=== PATIENT | female | born 2000 | race Caucasian/White ===

== ENCOUNTER → 2019-09-15 12:20 | Outpatient (CLI) | payer MEDICAID, SELFPAY ==
[2019-09-13 14:34] VITALS: BMI 27.3
[2019-09-15 14:07] LABS: hCG Titer Quant., Serum 2631 mIU/mL (1-3)
== END ==
PROVIDERS: PCP Family Medicine; Referring Provider Obstetrics & Gynecology; Visit Provider Obstetrics & Gynecology
DX: N91.2 Amenorrhea, unspecified (principal)
CPT/HCPCS: 36415; 84702; 86850; 86900; 86901

== ENCOUNTER → 2019-09-17 07:45 | Outpatient (CLI) | payer MEDICAID, SELFPAY ==
[2019-09-15 15:08] VITALS: BMI 27.3
--- NOTE | 2019-09-17 07:55 | US_ITS ---
STUDY: FIRST TRIMESTER OBSTETRICAL ULTRASOUND REASON FOR EXAM: Female, 19 years old heavy bleeding possible miscarriage LMP: July 09, 2019. TECHNIQUE: Transabdominal TECHNICAL QUALITY: Adequate. PRIOR ULTRASOUND: None. FINDINGS: There is visualization of a single gestational sac in a normal intrauterine position. The mean sac diameter (MSD) measures 1.0 cm, indicating an estimated gestational age (EGA) of 5 weeks, 4 days. The gestational sac shape is elongated. There is no demonstrated yolk sac. The placenta is non-visualized. There is visualization of an embryo with no cardiac activity, consistent with intrauterine demise. The crown-rump length (CRL) measures 5.4 mm, indicating an estimated gestational age (EGA) of 6 weeks, 3 days. The estimated gestation age (EGA) by LMP is 10 weeks, 0 days. The estimated date of delivery (GISELE) by LMP is April 14, 2020. The estimated gestation age (EGA) by US is 6 weeks, 0 days. The estimated date of delivery (GISELE) by US is May 12, 2020. The uterus measures 9.2 cm x 5.5 cm by 5.5 cm. There is no demonstrated uterine fibroid. The cervix is closed. The right ovary measures 2.7 cm x 1.4 cm x 2.1 cm. There is no right ovarian cyst. There is no visualized right adnexal mass or complex lesion. The left ovary is nonvisualized. There is no fluid in the cul de sac. US/Init OB < 14Wks US IMPRESSION: Nonviable embryo with a gestational age of 6 weeks and 3 days. Electronically Signed: Norbert Hu, at 13:05 EDT , Service support ,
== END ==
PROVIDERS: PCP Family Medicine; Referring Provider Obstetrics & Gynecology; Visit Provider Obstetrics & Gynecology
DX: O03.4 Incomplete spontaneous abortion without complication (principal); Z3A.00 Weeks of gestation of pregnancy not specified
CPT/HCPCS: 76801

== ENCOUNTER → 2019-11-04 13:28 | Outpatient (CLI) | payer MEDICAID, SELFPAY ==
[2019-09-24 11:24] VITALS: BMI 27.3
[2019-11-08 20:07] LABS: Dilute Prothrombin Time (dPT) 38.4 sec (0.0-55.0); Dilute Russell Viper Venom 38.7 sec (0.0-47.0); PTT-LA 45.6 sec (0.0-51.9); Thrombin Time 19.3 sec (0.0-23.0); dPT Confirm Ratio 1.03 Ratio (0.00-1.40)
[2019-11-08 21:13] LABS: Anti-Cardiolipin Ab, IgA, Qn < 9 APL U/mL (0-11); Anti-Cardiolipin Ab, IgG, Qn < 9 GPL U/mL (0-14); Anti-Cardiolipin Ab, IgM, Qn < 9 MPL U/mL (0-12); Beta-2-Glycoprotein I IgA <9 (0-25); Beta-2-Glycoprotein I IgG <9 (0-20); Beta-2-Glycoprotein I IgM <9 (0-32); Interpretation Comment: (.)
== END ==
PROVIDERS: PCP Family Medicine; Referring Provider Obstetrics & Gynecology; Visit Provider Obstetrics & Gynecology
DX: N96 Recurrent pregnancy loss (principal)
CPT/HCPCS: 36415; 86146; 86147

== ENCOUNTER → 2020-02-15 16:16 | Outpatient (CLI) | payer MEDICAID, SELFPAY ==
[2020-02-15 13:44] VITALS: BMI 30.2
[2020-02-15 17:02] LABS: Amphetamine Urine VISTA NEGATIVE (<1000 ng/mL); Barbiturate Urine VISTA NEGATIVE (< 200 ng/mL); Benzodiazepine Urine VISTA NEGATIVE (< 200 ng/mL); Cocaine Urine VISTA NEGATIVE (< 300 ng/mL); Ecstacy Urine VISTA NEGATIVE (< 500 ng/mL); Methadone Urine VISTA NEGATIVE (< 300 ng/mL); PCP Urine VISTA NEGATIVE (< 25 ng/mL); THC Urine VISTA POSITIVE (< 50 ng/mL); Vista UDS pH Range 5
[2020-02-18 20:08] LABS: Chlamydia By Nucleic Acid AMP Negative (Negative)
[2020-02-18 22:07] LABS: Gonococcus By Nucleic Acid AMP Negative (Negative)
[2020-02-24 21:41] LABS: HPV APTIMA, High Risk Negative (Negative); HPV Reflexed? YES, CHARGE PATIENT
== END ==
PROVIDERS: PCP Family Medicine; Visit Provider Obstetrics & Gynecology
DX: O09.90 Supervision of high risk pregnancy, unspecified, unspecified trimester (principal); Z12.4 Encounter for screening for malignant neoplasm of cervix; Z3A.00 Weeks of gestation of pregnancy not specified
CPT/HCPCS: 80307; 87086; 87088; 87491; 87591; 87624; 88175; G0145

== ENCOUNTER → 2020-03-21 13:30 | Outpatient (CLI) | payer MEDICAID, SELFPAY ==
[2020-03-09 08:20] VITALS: BMI 30.2
[2020-03-21 14:00] LABS: Absolute Neutrophil Count 5.5 X10^3/uL (2.0-7.7); Basophil# 0.02 X10^3/uL; Basophil% 0.2 % (0-1); Eosinophil# 0.07 X10^3/uL; Eosinophils% 0.9 % (0-5); Hematocrit 37.3 % (37-47); Hemoglobin 13.5 g/dL (12.0-15.0); Lymphocyte % 25.5 % (19-41); Mean Corp Hgb Conc 36.2 g/dL (32-36); Mean Corpuscular Hgb 29.5 pg (27.0-32.0); Mean Corpuscular Volume 81.6 fL (81-99); Mean Platelet Vol. 9.9 fl (6.2-12.0); Monocyte# 0.52 X10^3/uL; Monocyte% 6.3 % (0-10); NRBC Flagged by Analyzer 0 % (0-5); Neutrophil # 5.49 X10^3/uL (2.7-7.7); Neutrophil % 66.7 % (47-70); Platelet Count 244 K/mm3 (150-450); RBC Distribution Width SD 35.5 fl (35.1-43.9); Red Blood Count 4.57 M/mm3 (4.2-5.4); White Blood Count 8.2 K/mm3 (4.4-11.0)
[2020-03-21 14:56] LABS: NATERA MAILED SPECIMEN
[2020-03-21 15:37] LABS: HIV - WCH Non-Reactive (Nonreactive); Hepatitis B Surface Antigen Non-Reactive (Nonreactive); Hepatitis C Antibody Non-Reactive (Nonreactive)
[2020-03-23 02:39] LABS: Rapid Plasmin Reagin (RPR) NONREACTIVE (NONREACTIVE)
== END ==
PROVIDERS: PCP Family Medicine; Referring Provider Obstetrics & Gynecology; Visit Provider Obstetrics & Gynecology
DX: O09.90 Supervision of high risk pregnancy, unspecified, unspecified trimester (principal); Z31.430 Encounter of female for testing for genetic disease carrier status for procreative management; Z3A.00 Weeks of gestation of pregnancy not specified
CPT/HCPCS: 36415; 85025; 86592; 86703; 86803; 86850; 86900; 86901; 87340

== ENCOUNTER → 2020-05-08 | Outpatient (CLI) | payer MEDICAID, SELFPAY ==
[2020-05-08 15:29] VITALS: BMI 32.4
[2020-05-08 17:05] LABS: Amphetamine Urine VISTA NEGATIVE (<1000 ng/mL); Barbiturate Urine VISTA NEGATIVE (< 200 ng/mL); Benzodiazepine Urine VISTA NEGATIVE (< 200 ng/mL); Cocaine Urine VISTA NEGATIVE (< 300 ng/mL); Ecstacy Urine VISTA NEGATIVE (< 500 ng/mL); Methadone Urine VISTA NEGATIVE (< 300 ng/mL); PCP Urine VISTA NEGATIVE (< 25 ng/mL); THC Urine VISTA POSITIVE (< 50 ng/mL); Vista UDS pH Range 6
== END | disposition home or self-care (01) ==
LOC: LABSPEC 16:03
PROVIDERS: PCP Family Medicine; Referring Provider Nurse Practitioner Women's Health; Visit Provider Nurse Practitioner Women's Health
DX: F12.90 Cannabis use, unspecified, uncomplicated (principal)
CPT/HCPCS: 80307

== ENCOUNTER 2020-06-19 13:25 | Outpatient (CLI) | payer MEDICAID, SELFPAY ==
[2020-05-26 14:25] VITALS: BMI 32.8
[2020-06-19 13:42] VITALS: BP 140/73; PULSE 92; RESP 16; TEMP 35.9; O2SAT 100; BMI 34.3
[2020-06-19] MEDS: 0.9% NaCl Peripheral Flush Adult/Peds IV (13:58)
[2020-06-19] MEDS: Dextrose 5%-Lactated Ringers 1,000 ML 999 ML IV (13:59)
[2020-06-19] MEDS: Ondansetron 4 MG/2 ML Vial IV (14:03)
[2020-06-19 15:12] VITALS: BP 127/65; PULSE 72; RESP 16; O2SAT 100
== END 2020-06-19 16:00 | disposition home or self-care (01) ==
LOC: MEDOUTP 13:26
PROVIDERS: PCP Family Medicine; Referring Provider Obstetrics & Gynecology; Visit Provider Obstetrics & Gynecology
DX: E86.0 Dehydration (principal)
CPT/HCPCS: 96361; 96374; A4216; J2405

== ENCOUNTER → 2020-07-26 13:36 | Outpatient (CLI) | payer MEDICAID, SELFPAY ==
[2020-07-07 13:26] VITALS: BMI 33.3
[2020-07-26 14:04] LABS: Absolute Lymphocyte Count 1.91 X10^3/uL (0.83-4.51); Absolute Neutrophil Count 8.6 X10^3/uL (2.0-7.7); Basophil# 0.04 X10^3/uL; Basophil% 0.3 % (0-1); Eosinophil# 0.37 X10^3/uL; Hematocrit 34.3 % (37-47); Hemoglobin 11.4 g/dL (12.0-15.0); Lymphocyte # 1.91 X10^3/ul (0.83-4.51); Lymphocyte % 15.7 % (19-41); Mean Corp Hgb Conc 33.2 g/dL (32-36); Mean Corpuscular Hgb 27.7 pg (27.0-32.0); Mean Corpuscular Volume 83.3 fL (81-99); Mean Platelet Vol. 9.1 fl (6.2-12.0); Monocyte# 1.12 X10^3/uL; Monocyte% 9.2 % (0-10); NRBC Flagged by Analyzer 0 % (0-5); Neutrophil # 8.55 X10^3/uL (2.7-7.7); Neutrophil % 70.5 % (47-70); Platelet Count 234 K/mm3 (150-450); RBC Distribution Width CV 12.4 % (11.6-14.6); RBC Distribution Width SD 37.6 fl (35.1-43.9); Red Blood Count 4.12 M/mm3 (4.2-5.4); White Blood Count 12.2 K/mm3 (4.4-11.0)
[2020-07-26 14:16] LABS: Glucose Challenge Gest 1H 50g 99 mg/dL (70-140)
== END ==
PROVIDERS: PCP Family Medicine; Referring Provider Obstetrics & Gynecology; Visit Provider Obstetrics & Gynecology
DX: O09.90 Supervision of high risk pregnancy, unspecified, unspecified trimester (principal); Z3A.00 Weeks of gestation of pregnancy not specified
CPT/HCPCS: 36415; 82950; 85025

== ENCOUNTER → 2020-08-23 | Outpatient (CLI) | payer MEDICAID, SELFPAY ==
[2020-08-23 13:57] VITALS: BMI 33.6
[2020-08-23 19:29] LABS: Chlamydia Trachomatis by PCR Negative (Negative); Neisserai gonorrhoeae by PCR Negative (Negative); Probe Check PASS; Sample Adequacy Control PASS; Specimen Processing Control PASS
== END | disposition home or self-care (01) ==
LOC: LABSPEC 16:30
PROVIDERS: PCP Family Medicine; Visit Provider Nurse Practitioner Women's Health
DX: F12.90 Cannabis use, unspecified, uncomplicated (principal)
CPT/HCPCS: 87491; 87591

== ENCOUNTER 2020-09-06 13:55 | Outpatient (CLI) | payer MEDICAID, SELFPAY ==
[2020-09-06] VITALS (8 sets, daily range): BP systolic 128–137; BP diastolic 59–75; PULSE 97–125; TEMP 36.9; O2SAT 99–100; BMI 34.9; BMI 34.8
[2020-09-06] MEDS: Metoclopramide 10 MG Tablet PO (15:29)
[2020-09-06 16:02] LABS: Hematocrit 30.5 % (37-47); Hemoglobin 9.9 g/dL (12.0-15.0); Mean Corp Hgb Conc 32.5 g/dL (32-36); Mean Corpuscular Hgb 25.7 pg (27.0-32.0); Mean Corpuscular Volume 79.2 fL (81-99); Mean Platelet Vol. 9.6 fl (6.2-12.0); Platelet Count 221 K/mm3 (150-450); RBC Distribution Width CV 12.6 % (11.6-14.6); RBC Distribution Width SD 35.8 fl (35.1-43.9); Red Blood Count 3.85 M/mm3 (4.2-5.4); White Blood Count 12.3 K/mm3 (4.4-11.0)
[2020-09-06 16:41] LABS: Protein, Urine (Random) < 6.0 mg/dL (<11.9)
[2020-09-06 16:42] LABS: AST(SGOT) 10 U/L (15-37); Alanine Aminotransfer ALT/SGPT 17 U/L (13-56); Creatinine, Serum 0.57 mg/dL (0.55-1.02); EST Glomerular Filtration Rate 140 mL/min (>60); Est Glom Filt Rate - Afr Amer 169 mL/min (>60); Estimated Creatinine Clearance 133.68 ml/min; Uric Acid 4.6 mg/dL (2.6-6.0)
--- NOTE | 2020-09-07 12:26 | OB.TRI.PN ---
Progress Notes Date of Service: 09/06/20 Progress Note: Patient presents for triage evaluation secondary to headache and elevated BP. LOVE resolved with reglan. BPs normal. PreE labs negative. FHT: Moderate variability reactive no decelerations category I tracing [place]: No Contractions Assessment and plan: Reactive NST, reassuring maternal and status patient discharged to home to follow-up next scheduled visit. See problem list details for additional plan information. Laboratory Studies: Laboratory Tests 09/06/20 09/06/20 09/06/20 Range/Units 15:21 15:21 15:21 WBC 12.3 H (4.4-11.0) K/mm3 RBC 3.85 L (4.2-5.4) M/mm3 Hgb 9.9 L (12.0-15.0) g/dL Hct 30.5 L (37-47) % MCV 79.2 L (81-99) fL MCH 25.7 L (27.0-32.0) pg MCHC 32.5 (32-36) g/dL RDW Std Deviation 35.8 (35.1-43.9) fl RDW Coeff of Drake 12.6 (11.6-14.6) % Plt Count 221 (150-450) K/mm3 MPV 9.6 (6.2-12.0) fl Creatinine 0.57 (0.55-1.02) mg/dL Estim Creat Clear Calc 133.68 ml/min Est GFR (MDRD) Af Amer 169 (>60) mL/min Est GFR (MDRD) Non-Af 140 (>60) mL/min Uric Acid 4.6 (2.6-6.0) mg/dL AST 10 L (15-37) U/L ALT 17 (13-56) U/L U Random Total Protein < 6.0 (<11.9) mg/dL Urine Creatinine 22.50 (NO RANGE EST.) mg/dL Protein/Creatinin Ratio TNP Procedures Urinary/Genital 52xxx-59xxx: 01576-41 non-stress test Interp
== END 2020-09-06 17:20 ==
LOC: WPOUT 15:00 → WP 15:04
PROVIDERS: PCP Family Medicine; Visit Provider Obstetrics & Gynecology
DX: O26.899 Other specified pregnancy related conditions, unspecified trimester (principal); R51.9 Headache, unspecified; R03.0 Elevated blood-pressure reading, without diagnosis of hypertension; Z3A.00 Weeks of gestation of pregnancy not specified
CPT/HCPCS: 36415; 59025; 59050; 82565; 82570; 84156; 84450; 84460; 84550; 85027; 99218; G0378

== ENCOUNTER → 2020-09-25 | Outpatient (CLI) | payer MEDICAID, SELFPAY ==
[2020-09-25 15:45] VITALS: BMI 34.8
== END | disposition home or self-care (01) ==
LOC: LABSPEC 17:15
PROVIDERS: PCP Family Medicine; Visit Provider Obstetrics & Gynecology
DX: Z34.93 Encounter for supervision of normal pregnancy, unspecified, third trimester (principal); Z3A.35 35 weeks gestation of pregnancy
CPT/HCPCS: 87081

== ENCOUNTER 2020-09-29 00:30 | Outpatient (CLI) | payer MEDICAID, SELFPAY ==
[2020-09-25 15:45] VITALS: BMI 34.8
[2020-09-29 00:43] VITALS: BP 135/70; PULSE 97; TEMP 36.7; O2SAT 99
[2020-09-29 00:44] VITALS: PULSE 106; TEMP 37.1; O2SAT 98
[2020-09-29 00:54] VITALS: BMI 36.0
[2020-09-29 01:00] VITALS: BP 137/79; PULSE 76
[2020-09-29 01:16] VITALS: BP 137/74; PULSE 70
[2020-09-29 01:31] VITALS: BP 137/80; PULSE 72
[2020-09-29 01:32] LABS: ROM Internal Control Test YES-OK TO RESULT pt. (Internal QC); ROM Patient Test Negative (Negative)
[2020-09-29 01:46] VITALS: BP 138/79; PULSE 71
--- NOTE | 2020-09-29 16:43 | OB.TRI.PN ---
Progress Notes Date of Service: 09/28/20 Progress Note: Patient presents for triage evaluation secondary to decreased movement and LOF. Movement improved on arrival. ROM negative FHT: Moderate variability reactive no decelerations category I tracing [place]: Irregular Contractions Assessment and plan: Reactive NST, reassuring maternal and status patient discharged to home to follow-up at next scheduled visit. See problem list details for additional plan information. Laboratory Studies: Laboratory Tests 09/29/20 Range/Units 01:05 Vag Amniotic Fld Detect Negative (Negative) Charges/Coding Procedures Urinary/Genital 52xxx-59xxx: [id number] non-stress test Interp
== END 2020-09-29 02:00 | disposition home or self-care (01) ==
LOC: WPOUT 00:35 → WP 00:36
PROVIDERS: PCP Family Medicine; Referring Provider Obstetrics & Gynecology; Visit Provider Obstetrics & Gynecology
DX: O36.8190 Decreased fetal movements, unspecified trimester, not applicable or unspecified (principal); Z3A.00 Weeks of gestation of pregnancy not specified
CPT/HCPCS: 59025; 59050; 84112; 99218; G0378

== ENCOUNTER 2020-10-10 16:55 | Inpatient (IN) | payer MEDICAID, SELFPAY ==
[2020-10-10] VITALS (60 sets, daily range): BP systolic 97–143; BP diastolic 52–98; PULSE 72–113; RESP 18–20; TEMP 36.6–37.1; O2SAT 98–100; BMI 34.0; BMI 36.3
[2020-10-10 15:50] LABS: Protein, Urine (Random) 11.1 mg/dL (<11.9); Protein:Creat Ratio 90 mg/g CRE (0-200)
[2020-10-10 16:49] LABS: Hematocrit 31.6 % (37-47); Hemoglobin 10.2 g/dL (12.0-15.0); Mean Corp Hgb Conc 32.3 g/dL (32-36); Mean Corpuscular Hgb 24.3 pg (27.0-32.0); Mean Corpuscular Volume 75.2 fL (81-99); Platelet Count 240 K/mm3 (150-450); RBC Distribution Width CV 13.3 % (11.6-14.6); RBC Distribution Width SD 35.8 fl (35.1-43.9); White Blood Count 10.9 K/mm3 (4.4-11.0)
[2020-10-10 17:05] LABS: ALB/GLOB Ratio 0.7 RATIO (0.9-2.4); AST(SGOT) 11 U/L (15-37); Alanine Aminotransfer ALT/SGPT 13 U/L (13-56); Albumin, Serum 2.5 g/dL (3.2-5.0); Alkaline Phosphatase 185 U/L (45-117); Anion Gap 7 (5-15); BUN 8 mg/dL (7-18); BUN/Creat Ratio 14.8 RATIO (10-20); Calcium,Total 8.9 mg/dL (8.5-10.1); Chloride 106 mmol/L (98-107); Creatinine, Serum 0.54 mg/dL (0.55-1.02); EST Glomerular Filtration Rate 150 mL/min (>60); Est Glom Filt Rate - Afr Amer 182 mL/min (>60); Estimated Creatinine Clearance 141.11 ml/min; Globulin 3.8 g/dL (2.2-4.2); Glucose 88 mg/dL (74-106); Potassium 4.1 mmol/L (3.5-5.1); Protein, Total 6.3 g/dL (6.4-8.2); Sodium Level 135 mmol/L (136-145)
[2020-10-10] MEDS: Lactated Ringers 1,000 ML 999 ML IV (17:15)
[2020-10-10] MEDS: Magnesium Sulfate 4gm/100mL 4 GM/100 ML IV.SOLN. IV (17:15)
[2020-10-10] MEDS: Acetaminophen 500 MG Tablet 1000 MG PO ×2 (17:22→22:46)
[2020-10-10] MEDS: Sodium Citrate/Citric Acid 30 ML UDC PO (17:22)
--- NOTE | 2020-10-10 17:26 | HP.PCM.OB_ITS ---
HPI - General General Date of Admission: 10/10/20 HPI Narrative LYUBOV NOEL, is a 20 F who presents with 3+ pitting edema, elevated blood pressures, and persistent headache and change in vision. Patient has a history of preeclampsia with her first delivery. Maternal Data Information GISELE Calculator Estimated Delivery Date Method Current WG Current Estimate 10/17/20 LMP (Certain) 39w 0d PFSH PFSH Medical History (Updated 10/10/20 @ 17:[address] Afia Rosario MD) Anxiety with depression BPD (bronchopulmonary dysplasia) follow-up encounter PTSD (post-traumatic stress disorder) Home Medications diphenhydramine HCl [Benadryl] 50 mg PO PRN PRN 09/29/20 [History Last Taken Unknown] metoclopramide HCl [Reglan] 10 mg PO Q6H PRN 09/29/20 [History Last Taken Unknown] sertraline 50 mg PO QDAY 09/29/20 [History Last Taken 10/09/20 22:00] PNV [id number] [ Gummies] 2 tab PO QHS 10/10/20 [History Last Taken 10/09/20 22:00] acetaminophen [Tylenol Extra Strength] 1,000 mg PO Q6H PRN 10/10/20 [History Last Taken 10/10/20 11:00] Allergy/AdvReac Type Severity Reaction Status Date / Time meperidine [From Demerol] Allergy Mild other Verified 10/10/20 16:52 Family History Grandmother Diabetes Father Hypertension A-fib Mother Hypertension Surgical History History of cholecystectomy History of placement of ear tubes Hx of appendectomy Status post tonsillectomy and adenoidectomy Social History Smoking Status: Current every day smoker alcohol intake: never substance use type: marijuana caffeine: No what type of physical activity do you participate in: walking seatbelt use: always do you feel safe at home: Yes additional social history: [employer] Patient is unemployed History 5 Elective abortions Hx Para 1 Spontaneous abortions 3 Hx # Term Pregnancies Ectopic pregnancies Hx # Pregnancies Multiple births # of living children 1 Past Pregnancies Del. Date Name GA/Weeks Outcome Route Bth Weight Gen Labor Lgth Anesthesia Del Locatn Provider FOB Unknown 2017 Kory 41 live - full term Male 12 spinal Pomerene Vacceriello Delivery Date: heart rate Alvaro Sniderie Visit Details Expected Delivery Route/Plan RLTCS w/ SM 10/12 at 1200 Plans flu vaccine: no tdap vaccine: 07/26 rhogam: na LARC form signed: yes Problem list reviewed and updated with the most current plan of care details and appropriate orders placed. Relevant counseling for the gestational age provided. Continue routine care and follow up unless otherwise noted in visit notes/problem list details OB Flowsheet Initial Weight: Not Recorded Date -?-?-?-?-?-?-?-?-?-?-?-?- EGA Weight BP Urine Prot -?-?-?-?-?-?-?-?-?-?-?-?- Glucose FHR FuHt Pres Dilation -?-?-?-?-?-?-?-?-?-?-?-?- Effaced St Visit Note 02/15/20 -?-?-?-?-?-?-?-?-?-?-?-?- 5w 0d 171 lb 116/70 -?-?-?-?-?-?-?-?-?-?-?-?- -?-?-?-?-?-?-?-?-?-?-?-?- SM- GS 6 mm intr auterine 03/09/20 -?-?-?-?-?-?-?-?-?--?-?-?- 8w 2d 171 lb 122/84 Negative -?-?-?-?-?-?-?-?-?-?-?-?- Negative 160 -?-?-?-?-?-?-?-?-?-?-?-?- SM- crl 8w1d via ble IUP consistent with LMP 04/10/20 -?-?-?-?-?-?-?-?-?-?-?-?- 12w 6d 177 lb 6 oz 140/80 Nega tive -?-?-?-?-?-?-?-?-?-?-?-?- Negative 160 -?-?-?-?-?-?-?-?-?-?-?-?- GP - no cramping or bleeding. PRR. Discussed +carrier screening - getting screening today. Anatomy scan ordered. 05/08/20 -?-?-?-?-?-?-?-?-?-?-?-?- 16w 6d 183 lb 2 oz 136/82 Nega tive -?-?-?-?-?-?-?-?-?-?-?-?- Negative 157 -?-?-?-?-?-?-?-?-?-?-?-?- MH-No VB, LOF. A natomy US scheduled. FOB having rest of genetic screen done today 05/26/20 -?-?-?-?-?-?-?-?-?-?-?-?- 19w 3d 185 lb 4 oz 130/82 Nega tive -?-?-?-?-?-?-?-?-?-?-?-?- Negative 150 -?-?-?-?-?-?-?-?-?-?-?-?- GP - reports LOVE associated with blurred vision in both eyes. Starts with TV static in her left eye. Headaches typically resolve with tylenol. Hx migraines outside of pregnacy, but has never had visual disturbances. Has nausea with headaches. Occur 3-4x/wk. GP - reports LOVE associated w ith blurred vision in both eyes. Starts with TV static in her left eye. Headaches typically resolve with tylenol. Hx migraines outside of pregnacy, but has never had visual disturbances. Has nausea with headaches. Occur 3-4x/wk. Denies cramping, LOF, VB. Anatomy normal, but needs follow-up views. GP - reports LOVE associated w ith blurred vision in both eyes. Starts with TV static in her left eye. Headaches typically resolve with tylenol. Hx migraines outside of pregnacy, but has never had visual disturbances. Has nausea with headaches. Occur 3-4x/wk. No LOVE currently. Denies cramping, LOF, VB. Anatomy normal, but needs follow-up views. 07/07/20 -?-?-?-?-?-?-?-?-?-?-?-?- 25w 3d 194 lb 2 oz 130/78 Nega tive -?-?-?-?-?-?-?-?-?-?-?-?- Negative 155 25 -?-?-?-?-?-?-?-?-?-?-?-?- GP - no ctx, LOF , VB, DFM. Anatomy nl. Son's birthday is this Friday. 07/26/20 -?-?-?-?-?-?-?-?-?-?-?-?- 28w 1d 196 lb 136/80 Negative -?-?-?-?-?-?-?-?-?-?-?-?- Negative 155 28 -?-?-?-?-?-?-?-?-?-?-?-?- GP - no ctx, LOF , VB, DFM. TDAP today. GP - no ctx, LOF, VB, DFM. T DAP today. 28w labs normal. Plan RLTCS at 38w with SM. GP - no ctx, LOF, VB, DFM. T DAP today. 28w labs normal. Plan RLTCS at 39w with SM. 08/10/20 -?-?-?-?-?-?-?-?-?-?-?-?- 30w 2d 194 lb 4 oz 138/88 Nega tive -?-?-?-?-?--?-?-?-?-?-?-?- Negative 145 30 -?-?-?-?-?-?-?-?-?-?-?-?- GP - no LOF, VB, DFM, ctx. Denies complaints. 08/23/20 -?-?-?-?-?-?-?-?-?-?-?-?- 32w 1d 197 lb 130/62 Trace -?-?-?-?-?-?-?-?-?-?-?-?- Negative 142 32 -?-?-?-?-?-?-?-?-?-?-?-?- MH-No VB, LOF. I rreg BH-PTL reviewed. 09/06/20 -?-?-?-?-?-?-?-?-?-?-?-?- 34w 1d 203 lb 6 oz 140/80 Nega tive -?-?-?-?-?-?-?-?-?-?-?-?- Negative 140 34 Cephalic -?-?-?-?-?-?-?-?-?-?-?-?- GP - no LOF, VB, DFM, ctx. Reports LOVE with blurred vision over last 2 weeks. LOVE 07/15 after tylenol today. Sent to triage for eval. 09/18/20 -?-?-?-?-?-?-?-?-?-?-?-?- 35w 6d 204 lb 130/76 Negative -?-?-?-?-?-?-?-?-?-?-?-?- Negative 140 36 Cephalic -?-?-?-?-?-?-?-?-?-?-?-?- SM- no vb lof go od fm no regular ctx 09/25/20 -?-?-?-?-?-?-?-?-?-?-?-?- 36w 6d 206 lb 132/88 -?-?-?-?-?-?-?-?-?-?-?-?- 140 37 Cephalic 0 -?-?-?-?-?-?-?-?-?-?-?-?- SM- no vb lof go od fm nor egular ctx gbs 10/02/20 -?-?-?-?-?-?-?-?-?-?-?-?- 37w 6d 208 lb 138/84 Negative -?-?-?-?-?-?-?-?-?-?-?-?- Negative 160 38 Cephalic 0 -?-?-?-?-?-?-?-?-?-?-?-?- SM- no vb lof go od fm no regular ctx 10/10/20 -?-?-?-?-?-?-?-?-?-?-?-?- 39w 0d 211 lb 160/110 Trace -?-?-?-?--?-?-?-?-?-?-?-?- Negative -?-?-?-?-?-?-?-?-?-?-?-?- sent to l and d for evaluation due to severe range bp 10/10/20 -?-?-?-?-?-?-?-?-?-?-?-?- 39w 0d 211 lb 10.3 oz 139/8 9 143/98 143/92 142/95 135/90 143/87 121/80 139/81 -?-?-?-?-?-?-?-?-?-?-?-?- -?-?-?-?-?-?-?-?-?-?-?-?- NST FHR Rate Baby A Baseline: 130 Variability:: Moderate Accelerations:: 15 x 15 Decelerations:: None NST Reactive:: Yes FHR Category:: Category I Uterine Activity:: irregular ROS Constitutional Constitutional: Reports systems reviewed and no addt'l complaints, except as documented Eyes Eyes: Reports change in vision ENT HEENT: Reports systems reviewed and no addt'l complaints, except as documented and headache(s) Cardiovascular Cardiovascular: Reports systems reviewed and no addt'l complaints, except as documented; Denies chest pain or dyspnea Respiratory/Chest Respiratory/Chest: Reports systems reviewed and no addt'l complaints, except as documented Gastrointestinal Gastrointestinal: Reports systems reviewed and no addt'l complaints, except as documented; Denies abdominal pain Genitourinary Genitourinary: Reports systems reviewed and no addt'l complaints, except as documented, contractions Details: present (irregular) and movement Details: present; Denies dysuria or genital lesions Musculoskeletal Musculoskeletal: Reports systems reviewed and no addt'l complaints, except as documented Neurologic Neurologic: Reports systems reviewed and no addt'l complaints, except as documented Endocrine Endocrinology: Reports systems reviewed and no addt'l complaints, except as documented Vital Signs Vital Signs Vital Signs: 10/10/20 16:02 10/10/20 16:07 10/10/20 16:12 Pulse Rate 113 H 99 101 H Blood Pressure 139/89 H BP Systolic 139 BP Diastolic 89 Pulse Ox 98 99 10/10/20 16:19 10/10/20 16:35 10/10/20 16:49 Pulse Rate 111 H 107 H 104 H Blood Pressure 143/92 H 142/95 H 135/90 H BP Systolic 143 142 135 BP Diastolic 92 95 90 Pulse Ox 10/10/20 17:03 10/10/20 17:18 10/10/20 17:22 Pulse Rate 107 H 93 94 Blood Pressure 143/87 H 121/80 H 139/81 H BP Systolic 143 121 139 BP Diastolic 87 80 81 Pulse Ox 98 Weight Weight: 211 lb 10.3 oz Body Mass Index (BMI) 36.3 Physical Exam Const alert, oriented x3, no apparent distress and healthy appearing HEENT normocephalic and moist oral mucous membranes Head and Scalp: atraumatic Neck full ROM, no lymphadenopathy, supple and thyroid normal General: trachea midline Lymph Lymphatic: no lymphadenopathy noted Chest inspection of chest normal Resp normal respiratory effort Cardio regular rate GI normal to inspection, nondistended, normoactive bowel sounds, soft to palpation and non-tender Inspection: gravid external exam normal Manual OB Exam: estimated gestational size appropriate and presentation Extremity normal to inspection General Extremity: Negative for edema Skin no rashes or lesions noted Neuro no focal motor deficits and deep tendon reflexes 2+ bilaterally Motor Exam: strength 5/5 throughout and clonus absent Psych mental status grossly normal Labs Labs Labs: Blood Type A POSITIVE Antibody Screen NEGATIVE Hct 31.6 % (37-47) L Hgb 10.2 g/dL (12.0-15.0) L Obstetrics US Hep Bs Antigen Non-Reactive (Nonreactive) Neisseria gonorrhoeae DNA (YANET) Negative (Negative) HIV 1&2 Antibody Non-Reactive (Nonreactive) C.trachomatis DNA (PCR) Negative (Negative) Glucose 1 Hr 50 gm 99 mg/dL (70-140) Assessment & Plan (1) : QUALIFIERS: Weeks of gestation: 39 weeks Qualified Code(s): Z3A.39 - 39 weeks gestation of COMMENT: NIPT low risk, carrier polycystic kidney disease, FOB 03/18 neg. nl anatomy. GBS neg (2) Supervision of high-risk : QUALIFIERS: Trimester: third trimester Qualified Code(s): O09.93 - Supervision of high risk , unspecified, third trimester COMMENT: PRR GISELE 10/17/20girkelsea VIEYRA Kory Santiago (3) History of recurrent miscarriages: COMMENT: APL testing negative. (4) Anxiety and depression: COMMENT: encouraged counseling. Best friend week of 07/26. Coping as well as she can. 08/23 stable (5) History of delivery: COMMENT: Desires repeat LTCS with SM at 39w. Scheduled RLTCS for 10/12 @ 12. Would consider if spontaneous labor before then. RCS with SM 10/12 at noon (6) Marijuana use: COMMENT: + 02/16/20 Random tox screen; Positive 05/08/20 (7) ASCUS of cervix with negative high risk HPV: COMMENT: needs repeat PAP 02/2023 (8) Migraine with aura: QUALIFIERS: Status migrainosus presence: without status migrain osus Intractability: not intractable Qualified Code(s): G43.109 - Migraine with aura, not intractable, without status migrainosus COMMENT: Hx migraines, but no auras prior to . Visual symptoms consistent with auras. BP normal and patient previable. Given reglan. Recommend daily magnesium. Patient to scheduled follow-up with PCP. (9) Preeclampsia, severe: COMMENT: headache and blurry vision, elevated bps, proceed with RLTCS and magnesium sulfate
--- NOTE | 2020-10-10 17:29 | EX.PCM.OBRPT ---
Assessment & Plan (1) : QUALIFIERS: Weeks of gestation: 39 weeks Qualified Code(s): Z3A.39 - 39 weeks gestation of COMMENT: NIPT low risk, carrier polycystic kidney disease, FOB 03/18 neg. nl anatomy. GBS neg (2) Supervision of high-risk : QUALIFIERS: Trimester: third trimester Qualified Code(s): O09.93 - Supervision of high risk , unspecified, third trimester COMMENT: PRR GISELE 10/17/20girkelsea VIEYRA Kory Santiago (3) History of recurrent miscarriages: COMMENT: APL testing negative. (4) Anxiety and depression: COMMENT: encouraged counseling. Best friend week of 07/26. Coping as well as she can. 08/23 stable (5) History of delivery: COMMENT: Desires repeat LTCS with SM at 39w. Scheduled RLTCS for 10/12 @ 12. Would consider if spontaneous labor before then. RCS with SM 10/12 at noon (6) Marijuana use: COMMENT: + 02/16/20 Random tox screen; Positive 05/08/20 (7) ASCUS of cervix with negative high risk HPV: COMMENT: needs repeat PAP 02/2023 (8) Migraine with aura: QUALIFIERS: Intractability: not intractable Status migrainosus presence: without status migrainosus Qualified Code(s): G43.109 - Migraine with aura, not intractable, without status migrainosus COMMENT: Hx migraines, but no auras prior to . Visual symptoms consistent with auras. BP normal and patient previable. Given reglan. Recommend daily magnesium. Patient to scheduled follow-up with PCP. 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 Mo catheter was placed. The patient was placed in the dorsal supine position with leftward tilt. Patient was prepped and draped in the normal sterile fashion. Pfannenstiel skin incision was made with the scalpel and carried through to the underlying layer of fascia with the scalpel. Fascia was nicked in the midline and the incision extended laterally. The rectus bellies were dissected off superiorly and inferiorly with out complication both sharply and bluntly. The peritoneum was entered digitally. The incision was stretched and a significant amount of uterine to anterior to abdominal wall adhesions were encountered and taken down with the Bovie. A low transverse uterine incision was made with the scalpel. The infant's head was delivered atraumatically followed by the anterior and posterior shoulders without complication the rest of the delivered. The cord was clamped and cut and the infant was handed off to awaiting nurse. The placenta was delivered spontaneously immediately following and was noted to be intact and have a three-vessel cord. The uterus was exteriorized cleared of all clots and debris, and the incision was closed in a signle layer closure using #1 Monocryl. Some bleeding was noted on the serosa of the uterus after the adhesiolysis had been performed and therefore this was oversewn with 4-0 Monocryl and Atilio applied. The ovaries and fallopian tubes were noted to be within normal limits. The uterus was returned to the maternal abdomen and gutters were cleared of all clots and debris. The peritoneum was closed with 3-0 Monocryl in a running fashion. Gloves were changed prior to fascial closure. Fascia was closed with 0 PDS in a running fashion. Subcutaneous tissue was copiously irrigated and the skin was closed with 3-0 Monocryl in a subcuticular fashion. Mepilex dressing was applied without complication. Patient was taken to recovery in stable condition. It was discussed with the patient that based on the clinical information obtained during this encounter, combined with her history, at this time I would recommend cesareans for future deliveries if further pregnancies are desired. Amniotic Membrane Rupture Type: Artificial Amniotic Fluid Description: Clear Placenta Disposition: [facility] Cord Vessel Description: 3 Vessels Cord Entanglement: None Infant A Gender: Female Delayed Cord Clamping: Yes Complications Risks of Surgery Discussed w/Patient: Bleeding, Infection, Need for Future C-Sections and Injury to surrounding structure(s) including bowel and bladder Vaginal Delivery Complication Complications: None Admit VTE Documentation VTE Present on Admission: No VTE Mechan Device Prophylaxis: SCD's Procedures Urinary/Genital 52xxx-59xxx: [id number] delivery+PP Care([facility])
[2020-10-10] MEDS: Magnesium Sulfate 4gm/100mL 2 GM/50 ML IV.SOLN. IV (17:35)
[2020-10-10] MEDS: Cefazolin 2 GM in 0.9% Normal Saline 100 ML IV (17:48)
[2020-10-10] MEDS: Magnesium Sulfate 20 GM/500 ML BAG IV (17:50)
--- NOTE | 2020-10-10 18:02 | PCM.DC ---
Discharge Instructions Diet Discharge Diet: No restrictions Activity Discharge Activity: May Not Drive (for 2 weeks or while taking narcotic pain medications.), May Shower and May Take a Tub Bath (in 7 days) May shower in (days): 0 May resume sexual activity in: 4-6 weeks Weight Bearing Status: Full weight bearing Lifting Restrictions: 20 pounds Dressing / Incision Call your doctor if your incision/area has: Continuous Slow Oozing, Sudden Increased Bleeding, Increased Pain/ Swelling, Increased Redness and Foul Smelling Discharge Call your doctor if you observe: Fever of 101 or Higher and Using more than 1 pad per hour (for 2 hours) Suture Line Care: Avoid Pulling/Pushing and Avoid Pinching/Bending Cleanse incision/area with: Soap & Water and Keep Dressing Clean & Dry Follow Up Care Please Follow Up With: Afia Rosario MD When: Call [phone] to make an appointment for an incision check in 1-2 weeks. Test Results: Test results from this visit will be discussed in further detail at your follow-up appointment, if applicable. Discharge Plan Admission Admit Date/Time: 10/10/20 16:55 Primary Reason for Your Visit: delivery Attending Provider: Afia Rosario Primary Care Provider: Roderick Wallis Discharge Orders/Prescriptions Prescriptions: New oxycodone-acetaminophen [Endocet] 5-325 mg tablet 1 tab PO Q4H PRN (Reason: pain) 7 Days Qty: 20 RF: 0 naproxen [naproxen] 500 MG tablet 500 mg PO BID PRN PRN (Reason: Pain) Qty: 30 RF: 1 Continued diphenhydramine HCl [Benadryl] 25 mg Capsule 50 mg PO PRN PRN (Reason: Sleep) RF: 0 sertraline 50 mg tablet 50 mg PO QDAY RF: 0 metoclopramide HCl [Reglan] 10 mg tablet 10 mg PO Q6H PRN (Reason: headaches) RF: 0 acetaminophen [Tylenol Extra Strength] 500 mg Tablet 1,000 mg PO Q6H PRN (Reason: pain) RF: 0 Gummies 400 mcg-35 mg- 25 mg-5 mg Tablet,Chewable 2 tab PO QHS RF: 0 Referrals / Follow Up: Roderick Wallis MD [Primary Care Provider] - Afia Rosario MD [STAFF PHYSICIAN] - Disposition Disposition (needs filled in before D/C Order can be placed): Home, Self Care
[2020-10-10 18:18] LABS: BUP Internal Control LINE = VALID (VALID); Buprenorphine Drug Screen Negative (<10 ng/mL)
[2020-10-10] MEDS: Ondansetron 4 MG/2 ML Vial IV (18:25)
[2020-10-10] MEDS: Oxytocin 30 units/NS 500 ml 30 UNITS/500 ML IV.SOLN 167 UNITS IV (19:30)
[2020-10-10] MEDS: Ketorolac 30 MG/ML Syringe IV (20:09)
[2020-10-10 21:51] LABS: Amphetamine Urine VISTA NEGATIVE (<1000 ng/mL); Barbiturate Urine VISTA NEGATIVE (< 200 ng/mL); Benzodiazepine Urine VISTA NEGATIVE (< 200 ng/mL); Cocaine Urine VISTA NEGATIVE (< 300 ng/mL); Ecstacy Urine VISTA NEGATIVE (< 500 ng/mL); Methadone Urine VISTA NEGATIVE (< 300 ng/mL); PCP Urine VISTA NEGATIVE (< 25 ng/mL); THC Urine VISTA NEGATIVE (< 50 ng/mL); Vista UDS pH Range 6
[2020-10-10] MEDS: Lactated Ringers 1,000 ML 100 ML IV (22:45)
[2020-10-10] MEDS: Sertraline 50 MG Tablet PO (22:45)
[2020-10-10] MEDS: Prenatal Vits Tablet 1 TABLET PO (22:47)
[2020-10-11] VITALS (81 sets, daily range): BP systolic 110–147; BP diastolic 58–86; PULSE 65–108; RESP 16–18; TEMP 36.3–36.7; O2SAT 97–100
[2020-10-11] MEDS: Ketorolac 30 MG/ML Syringe IV ×3 (01:44→14:23)
[2020-10-11] MEDS: oxyCODONE 5 MG Tablet PO ×5 (02:40→23:26)
[2020-10-11] MEDS: Magnesium Sulfate 20 GM/500 ML BAG IV (03:03)
--- NOTE | 2020-10-11 04:32 | PCM.PN.OB ---
Subjective Subjective Patient doing well without complaints. Tolerating PO. Ambulating and voiding without difficulty. feeding well. Denies chest pain, shortness of breath, calf pain/swelling, fevers, chills, lightheadedness. Objective Data Objective Data Vital Signs: Vital Signs Temp Pulse Resp BP Pulse Ox 97.6 F L 95 18 129/67 H 100 10/11/20 04:00 10/11/20 04:27 10/11/20 04:00 10/11/20 04:00 10/11/20 04:27 Oxygen Delivery Method Room Air Weight: 211 lb 10.3 oz Body Mass Index (BMI) 36.3 Intake & Output: Intake and Output for Last 24 Hours 10/09/20 10/10/20 10/11/20 23:59 23:59 23:59 Intake Total 3090.83 / 3090.83 505 / 505 Output Total 1125 / 1125 350 / 350 Balance 1965.83 / 1965.83 155 / 155 Lab / Micro Data Result Diagrams: 10/10/20 16:30 10/10/20 16:30 Labs: Laboratory Results - last 24 hr 10/10/20 10/10/20 10/10/20 15:36 15:36 16:30 WBC 10.9 RBC 4.20 Hgb 10.2 L Hct 31.6 L MCV 75.2 L MCH 24.3 L MCHC 32.3 RDW Std Deviation 35.8 RDW Coeff of Drake 13.3 Plt Count 240 MPV 10.0 Sodium Potassium Chloride Carbon Dioxide Anion Gap BUN Creatinine Estim Creat Clear Calc Est GFR (MDRD) Af Amer Est GFR (MDRD) Non-Af BUN/Creatinine Ratio Glucose Calcium Total Bilirubin AST ALT Alkaline Phosphatase Total Protein Albumin Globulin Albumin/Globulin Ratio U Random Total Protein 11.1 Urine Creatinine 124.00 Protein/Creatinin Ratio 90 Urine Opiates Screen NEGATIVE Ur Buprenorphine Scrn Urine Methadone Screen NEGATIVE Ur Barbiturates Screen NEGATIVE Ur Phencyclidine Scrn NEGATIVE Ur Amphetamines Screen NEGATIVE U Methamphetamin-MDMA NEGATIVE U Benzodiazepines Scrn NEGATIVE Urine Cocaine Screen NEGATIVE U Cannabinoids Screen NEGATIVE Ur Drug Screen Comment Blood Type Antibody Screen 10/10/20 10/10/20 10/10/20 16:30 16:30 17:30 WBC RBC Hgb Hct MCV MCH MCHC RDW Std Deviation RDW Coeff of Drake Plt Count MPV Sodium 135 L Potassium 4.1 Chloride 106 Carbon Dioxide 22.0 Anion Gap 7 BUN 8 Creatinine 0.54 L Estim Creat Clear Calc 141.11 Est GFR (MDRD) Af Amer 182 Est GFR (MDRD) Non-Af 150 BUN/Creatinine Ratio 14.8 Glucose 88 Calcium 8.9 Total Bilirubin 0.30 AST 11 L ALT 13 Alkaline Phosphatase 185 H Total Protein 6.3 L Albumin 2.5 L Globulin 3.8 Albumin/Globulin Ratio 0.7 L U Random Total Protein Urine Creatinine Protein/Creatinin Ratio Urine Opiates Screen Ur Buprenorphine Scrn Negative Urine Methadone Screen Ur Barbiturates Screen Ur Phencyclidine Scrn Ur Amphetamines Screen U Methamphetamin-MDMA U Benzodiazepines Scrn Urine Cocaine Screen U Cannabinoids Screen Ur Drug Screen Comment Blood Type A POSITIVE Antibody Screen NEGATIVE Micro: Microbiology 10/10/20 18:38 Mucosa - Nose SARS-CoV-2 Antigen (Rapid) - Final ROS Constitutional Constitutional: Reports systems reviewed and no addt'l complaints, except as documented Cardiovascular Cardiovascular: Reports systems reviewed and no addt'l complaints, except as documented Respiratory/Chest Respiratory/Chest: Reports systems reviewed and no addt'l complaints, except as documented Gastrointestinal Gastrointestinal: Reports systems reviewed and no addt'l complaints, except as documented Physical Exam Const alert, oriented x3 and no apparent distress HEENT Head and Scalp: atraumatic Resp normal respiratory effort GI soft to palpation and non-tender Inspection: incision intact, healing well and drainage (none) Bimanual Exam - Vag & Uterus: uterus non-tender Uterus Palpation: uterus fundus firm (below Umbilicus) Assessment & Plan (1) delivery due to maternal disorder: COMMENT: RLTCS SM 39 severe preeclampsia Summer- girl (2) Preeclampsia, severe: COMMENT: headache and blurry vision, elevated bps, proceed with RLTCS and magnesium sulfate PLAN: s/p LTCS PPD # 1 1. routine post care 2. breast feeding- support given 3. rh positive 4. rubella immune preeclampsia- magnesium x 24 hours, repeat labs this am
[2020-10-11 05:10] LABS: Hematocrit 28.9 % (37-47); Hemoglobin 9.2 g/dL (12.0-15.0); Mean Corp Hgb Conc 31.8 g/dL (32-36); Mean Corpuscular Hgb 24.3 pg (27.0-32.0); Mean Corpuscular Volume 76.3 fL (81-99); Mean Platelet Vol. 10.1 fl (6.2-12.0); Platelet Count 208 K/mm3 (150-450); RBC Distribution Width CV 13.3 % (11.6-14.6); RBC Distribution Width SD 36.3 fl (35.1-43.9); Red Blood Count 3.79 M/mm3 (4.2-5.4); White Blood Count 13.5 K/mm3 (4.4-11.0)
[2020-10-11 05:35] LABS: ALB/GLOB Ratio 0.6 RATIO (0.9-2.4); AST(SGOT) 17 U/L (15-37); Alanine Aminotransfer ALT/SGPT 12 U/L (13-56); Alkaline Phosphatase 150 U/L (45-117); Anion Gap 7 (5-15); BUN 8 mg/dL (7-18); BUN/Creat Ratio 14.9 RATIO (10-20); Calcium,Total 7.5 mg/dL (8.5-10.1); Chloride 106 mmol/L (98-107); Creatinine, Serum 0.54 mg/dL (0.55-1.02); EST Glomerular Filtration Rate 151 mL/min (>60); Est Glom Filt Rate - Afr Amer 183 mL/min (>60); Estimated Creatinine Clearance 141.11 ml/min; Globulin 3.1 g/dL (2.2-4.2); Glucose 85 mg/dL (74-106); Potassium 3.7 mmol/L (3.5-5.1); Protein, Total 5.1 g/dL (6.4-8.2); Sodium Level 138 mmol/L (136-145)
[2020-10-11] MEDS: Acetaminophen 500 MG Tablet 1000 MG PO ×4 (06:15→22:47)
[2020-10-11] MEDS: Enoxaparin 40 MG/0.4 ML Syringe SC (06:15)
[2020-10-11] MEDS: 0.9% Saline Lock 10 ML Syringe IV ×2 (08:03→14:23)
[2020-10-11 08:24] LABS: Rubella IgG Reactive (Nonreactive)
[2020-10-11] MEDS: Senna/Docusate Sodium 1 Tablet PO (11:38)
[2020-10-11] MEDS: Naproxen 500 MG Tablet PO (20:13)
[2020-10-11] MEDS: Prenatal Vits Tablet 1 TABLET PO (22:47)
[2020-10-11] MEDS: Sertraline 50 MG Tablet PO (22:47)
[2020-10-12 02:13] VITALS: BP 119/77; PULSE 68; RESP 18; TEMP 36.1; O2SAT 97
[2020-10-12] MEDS: Naproxen 500 MG Tablet PO (03:36)
[2020-10-12] MEDS: oxyCODONE 5 MG Tablet PO ×3 (05:00→09:21)
[2020-10-12] MEDS: Acetaminophen 500 MG Tablet 1000 MG PO ×2 (05:38→10:56)
[2020-10-12 07:40] VITALS: BP 105/53; PULSE 60; RESP 16; TEMP 36.4
[2020-10-12] MEDS: Senna/Docusate Sodium 1 Tablet PO (09:15)
[2020-10-12] MEDS: Enoxaparin 40 MG/0.4 ML Syringe SC (09:15)
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
--- NOTE | 2020-10-12 11:35 | PCM.PN.OB ---
Subjective Subjective Patient doing well without complaints. Tolerating PO. Ambulating and voiding without difficulty. feeding well. Denies chest pain, shortness of breath, calf pain/swelling, fevers, chills, lightheadedness. Objective Data Objective Data Vital Signs: Vital Signs Temp Pulse Resp BP Pulse Ox 97.5 F L 60 16 105/53 L 97 10/12/20 07:40 10/12/20 07:40 10/12/20 07:40 10/12/20 07:40 10/12/20 02:13 Oxygen Delivery Method Room Air Weight: 211 lb 10.3 oz Body Mass Index (BMI) 36.3 Intake & Output: Intake and Output for Last 24 Hours 10/10/20 10/11/20 10/12/20 23:59 23:59 23:59 Intake Total 3090.83 / 3090.83 819.16 / 819.16 Output Total 1125 / 1125 1150 / 1150 Balance 1965.83 / 1965.83 -330.84 / -330.84 Lab / Micro Data Result Diagrams: 10/11/20 05:00 10/11/20 05:00 Micro: Microbiology 10/10/20 18:38 Mucosa - Nose SARS-CoV-2 Antigen (Rapid) - Final ROS Constitutional Constitutional: Reports systems reviewed and no addt'l complaints, except as documented Cardiovascular Cardiovascular: Reports systems reviewed and no addt'l complaints, except as documented Respiratory/Chest Respiratory/Chest: Reports systems reviewed and no addt'l complaints, except as documented Gastrointestinal Gastrointestinal: Reports systems reviewed and no addt'l complaints, except as documented Physical Exam Const alert, oriented x3 and no apparent distress HEENT Head and Scalp: atraumatic Resp normal respiratory effort GI soft to palpation and non-tender Inspection: incision intact, healing well and drainage (none) Bimanual Exam - Vag & Uterus: uterus non-tender Uterus Palpation: uterus fundus firm (below Umbilicus) Assessment & Plan (1) Preeclampsia, severe: COMMENT: headache and blurry vision, elevated bps, proceed with RLTCS and magnesium sulfate (2) delivery due to maternal disorder: COMMENT: RLTCS SM 39 severe preeclampsia Summer- girl PLAN: dc home today fu in 2 weeks
--- NOTE | 2020-10-12 15:00 | CASEMGMT ---
Social Work Labor and Delivery Called [facility] ([facility]) Daisy Giron at [phone], option 3, option 1. Referral given due to substance exposed infant in utero. Reported maternal drug screens, including last one in the second trimester. Negative for mom and baby both at delivery. Brief maternal and histories provided, including maternal history of mental health. At this time, referral likely to be screened out though will be documented. Will monitor for meconium drug screen results and if positive report to children services. No other services requested or indicated this time, other than watching for meconium results. -JEROME Hager, ATMOSPHERIC PHYSICIST
--- NOTE | 2020-10-18 17:02 | NURSING ---
Mother doing well on follow up call.
--- NOTE | 2020-10-18 17:05 | NURSING ---
Doing well on follow up phone call
== END 2020-10-12 11:30 | disposition home or self-care (01) | DRG 540 ==
LOC: WPOUT 16:59 → WP 16:59
PROVIDERS: Admitting Provider Obstetrics & Gynecology; PCP Family Medicine; Referring Provider Obstetrics & Gynecology; Visit Provider Obstetrics & Gynecology
DX: O34.211 Maternal care for low transverse scar from previous cesarean delivery (principal); N85.8 Other specified noninflammatory disorders of uterus; Z3A.39 39 weeks gestation of pregnancy; Z37.0 Single live birth; O99.344 Other mental disorders complicating childbirth; F41.8 Other specified anxiety disorders; F43.10 Post-traumatic stress disorder, unspecified; O14.14 Severe pre-eclampsia complicating childbirth; F17.200 Nicotine dependence, unspecified, uncomplicated; O99.334 Smoking (tobacco) complicating childbirth; G43.109 Migraine with aura, not intractable, without status migrainosus; Z79.899 Other long term (current) drug therapy; Z14.8 Genetic carrier of other disease
CPT/HCPCS: 59025; 59050; 80053; 80307; 82570; 84156; 85027; 86762; 86850; 86900; 86901; 87426; 99218; 99251; J7120; A4216; G0378; G0463; J2405

== ENCOUNTER → 2020-10-14 20:22 | Outpatient (CLI) | payer MEDICAID, SELFPAY ==
[2020-10-10 16:32] VITALS: BMI 36.3
== END ==
PROVIDERS: PCP Family Medicine; Referring Provider Obstetrics & Gynecology; Visit Provider Obstetrics & Gynecology
DX: E86.0 Dehydration (principal)

== ENCOUNTER → 2020-12-27 18:46 | Outpatient (CLI) | payer MEDICAID, SELFPAY | PROVIDERS: PCP Family Medicine; Referring Provider Obstetrics & Gynecology; Visit Provider Obstetrics & Gynecology | DX: Z39.1 Encounter for care and examination of lactating mother (principal) | CPT/HCPCS: 96158 ==

== ENCOUNTER → 2021-10-23 | Outpatient (CLI) | payer MEDICAID, SELFPAY ==
--- NOTE | 2021-10-23 14:18 | US_ITS ---
STUDY: FIRST TRIMESTER OBSTETRICAL ULTRASOUND REASON FOR EXAM: Female, 21 years old viability LMP: 08/07/2021. TECHNIQUE: Transvaginal TECHNICAL QUALITY: Adequate. PRIOR ULTRASOUND: None. FINDINGS: There is visualization of a single gestational sac in a normal intrauterine position. The mean sac diameter (MSD) measures 9.1 mm, indicating an estimated gestational age (EGA) of 5 weeks, 5 days. The gestational sac shape is within normal limits. There is a visualized yolk sac. The yolk sac measures 3.1 mm. The placenta is non-visualized. There is no demonstrated embryo ( pole). The estimated gestation age (EGA) by LMP is 7 weeks, 0 days. The estimated date of delivery (GISELE) by LMP is 06/11/2022. The estimated gestation age (EGA) by US is 5 weeks, 5 days. The estimated date of delivery (GISELE) by US is 06/20/2022. The uterus measures 10.2 cm x 7.4 cm x 5.3 cm. There is no demonstrated uterine fibroid. The cervix is closed. The right ovary measures 3.2 cm x 3 cm x 1.7 cm. There is no right ovarian cyst. There is no visualized right adnexal mass or complex lesion. The left ovary measures 2.6 cm x 1.7 cm x 1.5 cm. There is no left ovarian cyst. There is no visualized left adnexal mass or complex lesion. There is minimal fluid in the cul de sac. US/Transvaginal w/Preg US IMPRESSION: Intrauterine gestational sac corresponding to a gestational age of 5 weeks and 5 days. Electronically Signed: Norbert Hu MD at 15:24 EDT ,
== END | disposition home or self-care (01) ==
LOC: OPUS 14:16
PROVIDERS: PCP Family Medicine; Visit Provider Nurse Practitioner Women's Health
DX: O36.80X0 Pregnancy with inconclusive fetal viability, not applicable or unspecified (principal); Z3A.00 Weeks of gestation of pregnancy not specified
CPT/HCPCS: 76817

== ENCOUNTER → 2021-10-24 | Outpatient (CLI) | payer MEDICAID, SELFPAY ==
[2021-10-24 12:47] LABS: hCG Titer Quant., Serum 3264 mIU/mL (1-3)
== END | disposition home or self-care (01) ==
LOC: PAVLAB 11:35
PROVIDERS: PCP Family Medicine; Referring Provider Obstetrics & Gynecology; Visit Provider Obstetrics & Gynecology
DX: O20.0 Threatened abortion (principal); Z3A.00 Weeks of gestation of pregnancy not specified
CPT/HCPCS: 36415; 84702

== ENCOUNTER → 2021-10-26 | Outpatient (CLI) | payer MEDICAID, SELFPAY ==
[2021-10-26 14:46] LABS: hCG Titer Quant., Serum 5104 mIU/mL (1-3)
== END | disposition home or self-care (01) ==
LOC: LAB 12:24
PROVIDERS: PCP Family Medicine; Referring Provider Obstetrics & Gynecology; Visit Provider Obstetrics & Gynecology
DX: O20.0 Threatened abortion (principal); Z3A.00 Weeks of gestation of pregnancy not specified
CPT/HCPCS: 36415; 84702

== ENCOUNTER → 2021-10-29 | Outpatient (CLI) | payer MEDICAID, SELFPAY ==
[2021-10-29 17:05] LABS: hCG Titer Quant., Serum 9810 mIU/mL (1-3)
== END | disposition home or self-care (01) ==
LOC: PAVLAB 15:38
PROVIDERS: PCP Family Medicine; Referring Provider Nurse Practitioner Women's Health; Visit Provider Nurse Practitioner Women's Health
DX: O36.80X0 Pregnancy with inconclusive fetal viability, not applicable or unspecified (principal); Z3A.00 Weeks of gestation of pregnancy not specified
CPT/HCPCS: 36415; 84702

== ENCOUNTER → 2021-10-30 | Outpatient (CLI) | payer MEDICAID, SELFPAY ==
--- NOTE | 2021-10-30 13:21 | US_ITS ---
STUDY: FIRST TRIMESTER OBSTETRICAL ULTRASOUND REASON FOR EXAM: Female, 21 years old viability -- STAT read LMP: 09/04/2021. TECHNIQUE: Transabdominal and Transvaginal TECHNICAL QUALITY: Adequate. PRIOR ULTRASOUND: Comparison is made with prior study 10/23/2021. FINDINGS: There is visualization of a single gestational sac in a normal intrauterine position. The mean sac diameter (MSD) measures 1.52 cm, indicating an estimated gestational age (EGA) of 6 weeks, 2 days. The gestational sac shape is within normal limits. There is a visualized yolk sac. The yolk sac measures 3.9 mm. The placenta is non-visualized. There is visualization of a live embryo. The crown-rump length (CRL) measures 4.3 mm, indicating an estimated gestational age (EGA) of 6 weeks, 2 days. There is demonstrated cardiac activity with a heart rate of 132 bpm. The estimated gestation age (EGA) by LMP is 8 weeks, 0 days. The estimated date of delivery (GISELE) by LMP is 06/11/2022. The estimated gestation age (EGA) by US is 6 weeks, 2 days. The estimated date of delivery (GISELE) by US is 06/23/2022. The uterus measures 9.4 cm x 6.6 cm x 5.7 cm. 8 mm x 8 mm x 4 mm subchorionic hematoma. There is no demonstrated uterine fibroid. The cervix is closed. The right ovary measures 2.8 cm x 3.1 cm by 1.5 cm. There is no right ovarian cyst. There is no visualized right adnexal mass or complex lesion. The left ovary was not visualized. There is no fluid in the cul de sac. US/Transvaginal w/Preg US IMPRESSION: Single live uterine gestation with mean gestational age of 6 weeks and 2 days. Small subchorionic hematoma. Electronically Signed: Norbert Hu MD at 14:19 EDT ,
== END | disposition home or self-care (01) ==
LOC: OPUS 13:20
PROVIDERS: PCP Family Medicine; Visit Provider Obstetrics & Gynecology
DX: Z36.89 Encounter for other specified antenatal screening (principal); Z3A.01 Less than 8 weeks gestation of pregnancy
CPT/HCPCS: 76817

== ENCOUNTER 2021-11-13 12:09 | Day surgery (SDC) | payer MEDICAID, SELFPAY ==
[2021-11-13] VITALS (8 sets, daily range): BP systolic 106–144; BP diastolic 60–89; PULSE 56–128; RESP 16–30; TEMP 36.5–37.3; O2SAT 98–100; BMI 25.4
--- NOTE | 2021-11-13 12:19 | HP.PCM_ITS ---
HPI - General HPI Narrative LYUBOV NOEL, is a 21 F who presents with missed ab measuring 8w3d on ultrasound yesterday with no FHT or color doppler flow present. she denies any bleeding or cramping, no fever. [facility] Medical History (Updated 11/13/21 @ 12:[address] Afia Rosario MD) Anxiety with depression BPD (bronchopulmonary dysplasia) follow-up encounter delivery due to maternal disorder Marijuana use Preeclampsia, severe PTSD (post-traumatic stress disorder) Smoker Wears glasses Home Medications sertraline 50 mg tablet 50 mg PO QDAY depression 09/29/20 [History Last Taken 10/09/20 22:00] Allergy/AdvReac Type Severity Reaction Status Date / Time meperidine [From Demerol] Allergy Mild other Verified 11/12/21 10:42 Family History Grandmother Diabetes Father Hypertension A-fib Mother Hypertension Surgical History History of cholecystectomy History of placement of ear tubes Hx of appendectomy Status post tonsillectomy and adenoidectomy Social History adopted: No household members: spouse and children housing: other details: trailer number of children: 2 current occupational status: unemployed pets and animals: Yes pets and animals: dog(s) history of recent travel: No sexually active: Yes Smoking Status: Current every day smoker tobacco type: e-cigarettes alcohol intake: never substance use type: marijuana caffeine: No during the past year weight has: decreased > 10 lbs what type of physical activity do you participate in: walking frequency: daily duration: 15-30 minutes/day edna/spiritism: None seatbelt use: always do you feel safe at home: Yes additional social history: [employer] Patient is unemployed ROS Review of Systems ROS Unobtainable: due to mental status and other Constitutional Constitutional: Reports systems reviewed and no addt'l complaints, except as documented; Denies as per HPI, change in weight, fatigue, fever(s), malaise, weakness or other Eyes Eyes: Reports systems reviewed and no addt'l complaints, except as documented; Denies as per HPI, change in vision or other ENT HEENT: Reports as per HPI and dizziness; Denies dry mouth, headache(s), loss taste/smell, nasal congestion, nasal discharge, neck pain, sore throat or other Respiratory/Chest Respiratory/Chest: Reports systems reviewed and no addt'l complaints, except as documented Gastrointestinal Gastrointestinal: Reports systems reviewed and no addt'l complaints, except as documented and nausea; Denies vomiting Musculoskeletal Musculoskeletal: Reports systems reviewed and no addt'l complaints, except as documented; Denies back pain or joint pain Neurologic Neurologic: Reports systems reviewed and no addt'l complaints, except as documented Psychiatric Psychiatric: Reports systems reviewed and no addt'l complaints, except as documented Endocrine Endocrinology: Reports systems reviewed and no addt'l complaints, except as documented Hematologic/Lymphatic Hematologic/Lymphatic: Reports systems reviewed and no addt'l complaints, except as documented Vital Signs Vital Signs Vital Signs: Weight Weight: 144 lb Physical Exam Const alert, oriented x3 and no apparent distress HEENT normocephalic Head and Scalp: atraumatic Eyes EOMs intact bilaterally and conjunctivae normal Neck full ROM, no lymphadenopathy, supple and thyroid normal General: trachea midline Lymph Lymphatic: no lymphadenopathy noted Resp normal respiratory effort, no retractions, no use of accessory muscles and clear to auscultation bilaterally Cardio regular rhythm GI normal to inspection, nondistended, normoactive bowel sounds, soft to palpation, non-distended and no masses Inspection: Negative for abdominal distention Back/Spine no CVA tenderness Extremity normal to inspection Skin no rashes or lesions noted Neuro moves all extremities and deep tendon reflexes 2+ bilaterally Motor Exam: clonus absent Psych mental status grossly normal Assessment & Plan Assessment/Plan (1) Missed : PLAN: Plan After discussing the patient's diagnosis and treatment plan options, patient wishes to proceed with surgical management. I have discussed with the patient the risks, benefits, and alternatives of the procedure which include but are not limited to risks of anesthesia, bleeding, infection, possible damage to bowel, bladder, or surrounding vasculature which could lead to additional surgery to evaluate any complications. Patient agrees to procedure and wishes to proceed. ACOG/uptodate references given for additional information regarding procedure.
[2021-11-13] MEDS: Lactated Ringers 1,000 ML 125 ML IV ×2 (13:16→15:28)
[2021-11-13] MEDS: Doxycycline 100 MG CAPSULE PO (13:17)
[2021-11-13 13:42] LABS: Hematocrit 39.1 % (37-47); Hemoglobin 13.4 g/dL (12.0-15.0); Mean Corp Hgb Conc 34.3 g/dL (32-36); Mean Corpuscular Volume 81.6 fL (81-99); Mean Platelet Vol. 10.4 fl (6.2-12.0); Platelet Count 271 K/mm3 (150-450); RBC Distribution Width CV 12.7 % (11.6-14.6); RBC Distribution Width SD 37.8 fl (35.1-43.9); Red Blood Count 4.79 M/mm3 (4.2-5.4); White Blood Count 10.7 K/mm3 (4.4-11.0)
[2021-11-13 13:57] LABS: Hemoglobin A1c 4.8 % (3.8-5.6)
--- NOTE | 2021-11-13 14:00 | POC_PTH ---
PATIENT: LYUBOV NOEL LOC: [facility] [place] U#:[id number] AGE/SX: 21/ ROOM: RE11/13/[address]: Dr. Afia Rosario MD : [id number] BED: DIS: 11/13/2021 SPEC #: [id number] RECD: 11/13/21 14:39 STATUS: JENNIFER REDesiree #: [id number] DAVID: 11/13/21 14:[address]: Afia Rosario DEPT: SURGICAL PATHOLOGY RECD BY: Jennifer Roblero ENTERED: 11/14/21 08:19 SP TYPE: PROD CONC OTHR DR: Felisha Rucker PA-C Tissues: Product of conception, NOS Procedures: Surgery Specimen Level IV HEADER OPERATION: Suction dilation and curettage PRE-OP DIAGNOSIS: Missed TISSUE SUBMITTED: Products of conception for Anora testing MICROSCOPIC DIAGNOSIS Products of conception, Suction dilation and curettage: [place], gestational endometrium and immature chorionic villi (products of conception). See comment. BAUDILIO:lisa 11/15/2021 COMMENT Results of Anora testing will be reported as an addendum. MICROSCOPIC DESCRIPTION Slides are reviewed. GROSS DESCRIPTION Received fresh is one container labeled with the patient's name and designated products of conception for Anora testing. The specimen consists of multiple fragments of pink hemorrhagic soft tissue that in aggregate measure 7 x 6 x 1.5 cm. tissue is not identified. A portion of tissue is submitted for Anora studies. Dealer Account Manager tissue is submitted in two cassettes. / BAUDILIO:lisa 11/14/2021 TC:5 CPT: 00341 ADDENDUM ADDENDUM ADDENDUM ADDENDUM ADDENDUM ADDENDUM ADDENDUM ADDENDUM ADDENDUM ADDENDUM ADDENDUM ADDENDUM 11/28/2021 09:27 ADDENDUM 11/28/2021 09:27 ADDENDUM 11/28/2021 09:27 ADDENDUM 11/28/2021 09:27 ADDENDUM 11/28/2021 09:27 ANORA MICROARRAY CHROMOSOME ANALYSIS WITH PARENTAL SUPPORT RESULT: Abnormal female MICROARRAY RESULT: arr(15)x3 CLINICAL INTERPRETATION: Abnormal result. Trisomy 15 detected. Trisomy 15 is generally incompatible with survival. Overall, trisomy is found in approximately 45% of miscarriages. Genetic counseling is recommended to discuss the significance of this result. Referral to a local genetic counselor may be considered. Maternal cell contamination has been ruled out. Please see complete report in e-chart or EMR
[2021-11-13 14:03] LABS: T4 Free Direct 0.98 ng/dL (0.76-1.46); Thyroid Stim Hormone (TSH) 0.24 uIU/mL (0.358-3.74)
--- NOTE | 2021-11-13 14:39 | PCM.OPRPT ---
Problems Associated Problem List Diagnoses (1) Missed : Report of Operation Pre-Operative Diagnosis: see problem list Post-Operative Diagnosis: same Surgery/Procedure Performed:: Suction dilation and curettage Description of Surgical Findings:: no FHT present x 2, repeat bedside ultrasound today done, Nonviable measuring 8 weeks but supposed to be 10 weeks career resource technician: None Type of Anesthesia: Local MAC Special Medications: none Specimen's removed: POC Drains: none Estimated Blood Loss (mL): 50 Fluids Replaced: crystalloid Description of Procedure: Patient was taken to the operating room and placed under MAC local anesthesia. She was prepped and draped in the normal sterile fashion the dorsal lithotomy position. Bladder was drained of clear urine and anterior lip of the cervix was grasped and the uterus sounded to 8. Cervix was progressively dilated to allow passage of a 8 and then 9 mm suction curette. Progressive passes were made removing the retained products of conception without complication. Sharp curettage confirmed complete removal of the retained products. All instruments were removed from the vagina and excellent hemostasis was noted and the patient was taken to recovery in stable condition. Grafts/Implants Used: none Complications none Admit VTE Documentation VTE Present on Admission: No VTE Mechan Device Prophylaxis: SCD's Procedures Urinary/Genital 52xxx-59xxx: 24062 Trmt of incomplete Ab, any TM
--- NOTE | 2021-11-13 14:44 | DCINST_ITS ---
Discharge Instructions Procedure D&C Diet Discharge Diet: No restrictions Activity Discharge Activity: Return to Normal Activity, May Shower and May Take a Tub Bath (after 1 week) May resume sexual activity in: 1-2 weeks Weight Bearing Status: Weight bearing as tolerated Lifting Restrictions: none Dressing / Incision Call your doctor if you observe: Fever of 101 or Higher, Using more than 1 pad per hour, Shortness of breath and Uncontrolled pain Follow Up Care Please Follow Up With: Afia Rosario MD When: Call [phone] to schedule appointment. Test Results: Test results from this visit will be discussed in further detail at your follow- up appointment, if applicable. Discharge Plan Admission Attending Provider: Afia Rosario Primary Care Provider: Felisha Rucker Discharge Orders/Prescriptions Prescriptions: No Action sertraline 50 mg tablet 50 mg PO QDAY Referrals / Follow Up: Felisha Rucker PA-C [Primary Care Provider] - Disposition Disposition (needs filled in before D/C Order can be placed): Home, Self Care
[2021-11-13] MEDS: HYDROcodone Bitartrate/Apap 5/325 Tablet PO (15:53)
[2021-11-16 15:08] LABS: Dilute Prothrombin Time (dPT) 35.2 sec (0.0-47.6); Dilute Russell Viper Venom 33.4 sec (0.0-47.0); PTT-LA 37.2 sec (0.0-51.9); Thrombin Time 16.1 sec (0.0-23.0); dPT Confirm Ratio 1.01 Ratio (0.00-1.34)
[2021-11-16 17:16] LABS: Anti-Cardiolipin Ab, IgA, Qn < 9 APL U/mL (0-11); Anti-Cardiolipin Ab, IgG, Qn < 9 GPL U/mL (0-14); Anti-Cardiolipin Ab, IgM, Qn 14 MPL U/mL (0-12); Beta-2-Glycoprotein I IgA <9 (0-25); Beta-2-Glycoprotein I IgG <9 (0-20); Beta-2-Glycoprotein I IgM <9 (0-32); Interpretation Comment: (.)
== END 2021-11-13 16:01 | disposition home or self-care (01) ==
LOC: SDC 12:10 → AC 12:11
PROVIDERS: PCP Family Medicine; Referring Provider Obstetrics & Gynecology; Visit Provider Obstetrics & Gynecology
PROC: (CPT 59820; principal; 2021-11-13 13:45)
DX: O02.1 Missed abortion (principal); F41.8 Other specified anxiety disorders; Z79.899 Other long term (current) drug therapy; F43.10 Post-traumatic stress disorder, unspecified; F17.290 Nicotine dependence, other tobacco product, uncomplicated; O99.341 Other mental disorders complicating pregnancy, first trimester; Z3A.08 8 weeks gestation of pregnancy; O99.331 Smoking (tobacco) complicating pregnancy, first trimester
CPT/HCPCS: 59820; 83036; 84439; 84443; 85027; 86146; 86147; 86850; 86900; 86901; 88305; J7120; J2405

== ENCOUNTER 2022-03-06 10:28 | Outpatient (CLI) | payer MEDICAID, SELFPAY ==
[2022-03-06 11:42] LABS: T4 Free Direct 0.86 ng/dL (0.76-1.46); Thyroid Stim Hormone (TSH) 0.26 uIU/mL (0.358-3.74)
[2022-03-09 04:07] LABS: Dilute Prothrombin Time (dPT) 35.6 sec (0.0-47.6); Dilute Russell Viper Venom 34.3 sec (0.0-47.0); PTT-LA 39.2 sec (0.0-51.9); Thrombin Time 17.4 sec (0.0-23.0); dPT Confirm Ratio 1.07 Ratio (0.00-1.34)
[2022-03-12 11:38] LABS: Anti-Cardiolipin Ab, IgA, Qn < 9 APL U/mL (0-11); Anti-Cardiolipin Ab, IgG, Qn < 9 GPL U/mL (0-14); Anti-Cardiolipin Ab, IgM, Qn 13 MPL U/mL (0-12); Beta-2-Glycoprotein I IgA <9 (0-25); Beta-2-Glycoprotein I IgG <9 (0-20); Beta-2-Glycoprotein I IgM <9 (0-32); Interpretation Comment: (.)
== END 2022-03-06 23:59 | disposition home or self-care (01) ==
LOC: PAVLAB 10:29
PROVIDERS: PCP Family Medicine; Referring Provider Obstetrics & Gynecology; Visit Provider Obstetrics & Gynecology
DX: N96 Recurrent pregnancy loss (principal); R79.89 Other specified abnormal findings of blood chemistry
CPT/HCPCS: 36415; 84439; 84443; 86146; 86147

== ENCOUNTER → 2023-01-13 | Outpatient (CLI) | payer MEDICAID, SELFPAY ==
[2023-01-13 15:14] LABS: Protein, Urine (Random) 7.8 mg/dL (<11.9); Protein:Creat Ratio 40 mg/g CRE (0-200)
[2023-01-13 15:27] LABS: Amphetamine Urine VISTA NEGATIVE (<1000 ng/mL); Barbiturate Urine VISTA NEGATIVE (< 200 ng/mL); Benzodiazepine Urine VISTA NEGATIVE (< 200 ng/mL); Cocaine Urine VISTA NEGATIVE (< 300 ng/mL); Ecstacy Urine VISTA NEGATIVE (< 500 ng/mL); Methadone Urine VISTA NEGATIVE (< 300 ng/mL); PCP Urine VISTA NEGATIVE (< 25 ng/mL); THC Urine VISTA POSITIVE (< 50 ng/mL); Vista UDS pH Range 4
[2023-01-15 22:06] LABS: Chlamydia By Nucleic Acid AMP Negative (Negative); Gonococcus By Nucleic Acid AMP Negative (Negative)
[2023-01-17 16:25] LABS: HPV Reflexed? NOT INDICATED
== END | disposition home or self-care (01) ==
PROVIDERS: PCP Family Medicine; Referring Provider Obstetrics & Gynecology; Visit Provider Obstetrics & Gynecology
DX: O09.90 Supervision of high risk pregnancy, unspecified, unspecified trimester (principal); F12.99 Cannabis use, unspecified with unspecified cannabis-induced disorder; Z12.4 Encounter for screening for malignant neoplasm of cervix; Z3A.00 Weeks of gestation of pregnancy not specified; O99.320 Drug use complicating pregnancy, unspecified trimester
CPT/HCPCS: 80307; 82570; 84156; 87086; 87088; 87491; 87591; 88175; G0145

== ENCOUNTER → 2023-02-05 | Outpatient (CLI) | payer MEDICAID, SELFPAY ==
[2023-02-05 15:03] LABS: Absolute Lymphocyte Count 2.13 X10^3/uL (0.83-4.51); Absolute Neutrophil Count 6.4 X10^3/uL (2.0-7.7); Basophil# 0.02 X10^3/uL; Basophil% 0.2 % (0-1); Eosinophil# 0.07 X10^3/uL; Eosinophils% 0.8 % (0-5); Hematocrit 37.8 % (37-47); Hemoglobin 13.3 g/dL (12.0-15.0); Lymphocyte # 2.13 X10^3/ul (0.83-4.51); Lymphocyte % 22.9 % (19-41); Mean Corp Hgb Conc 35.2 g/dL (32-36); Mean Corpuscular Hgb 28.9 pg (27.0-32.0); Mean Corpuscular Volume 82.2 fL (81-99); Mean Platelet Vol. 9.5 fl (6.2-12.0); Monocyte% 7.5 % (0-10); NRBC Flagged by Analyzer 0 % (0-5); Neutrophil # 6.35 X10^3/uL (2.7-7.7); Neutrophil % 68.3 % (47-70); Platelet Count 242 K/mm3 (150-450); RBC Distribution Width CV 12.4 % (11.6-14.6); White Blood Count 9.3 K/mm3 (4.4-11.0)
[2023-02-05 15:58] LABS: ALB/GLOB Ratio 0.9 RATIO (0.9-2.4); AST(SGOT) 8 U/L (15-37); Alanine Aminotransfer ALT/SGPT 22 U/L (13-56); Albumin, Serum 3.2 g/dL (3.2-5.0); Alkaline Phosphatase 51 U/L (45-117); Anion Gap 9 (5-15); BUN 10 mg/dL (7-18); BUN/Creat Ratio 17.2 RATIO (10-20); Calcium,Total 8.9 mg/dL (8.5-10.1); Chloride 107 mmol/L (98-107); Creatinine, Serum 0.58 mg/dL (0.55-1.02); EST Glomerular Filtration Rate 135 mL/min (>60); Est Glom Filt Rate - Afr Amer 163 mL/min (>60); Globulin 3.7 g/dL (2.2-4.2); Glucose 93 mg/dL (74-106); NATERA MAILED SPECIMEN; Potassium 3.5 mmol/L (3.5-5.1); Protein, Total 6.9 g/dL (6.4-8.2); Sodium Level 140 mmol/L (136-145); T4 Free Direct 1.02 ng/dL (0.76-1.46); Thyroid Stim Hormone (TSH) 0.95 uIU/mL (0.358-3.74)
[2023-02-05 17:00] LABS: HIV - WCH Non-Reactive (Nonreactive); Hepatitis B Surface Antigen Non-Reactive (Nonreactive); Hepatitis C Antibody Non-Reactive (Nonreactive); Rubella IgG Reactive (Nonreactive); Syphilis Antibodies Non-reactive
== END | disposition home or self-care (01) ==
LOC: PAVLAB 14:36
PROVIDERS: PCP Family Medicine; Referring Provider Obstetrics & Gynecology; Visit Provider Obstetrics & Gynecology
DX: O09.90 Supervision of high risk pregnancy, unspecified, unspecified trimester (principal); R79.89 Other specified abnormal findings of blood chemistry; Z87.59 Personal history of other complications of pregnancy, childbirth and the puerperium; Z3A.00 Weeks of gestation of pregnancy not specified
CPT/HCPCS: 36415; 80053; 84439; 84443; 85025; 86703; 86762; 86780; 86803; 86850; 86900; 86901; 87340

== ENCOUNTER → 2023-05-29 | Outpatient (CLI) | payer MEDICAID, SELFPAY ==
[2023-05-29 10:28] LABS: Absolute Lymphocyte Count 1.65 X10^3/uL (0.83-4.51); Absolute Neutrophil Count 8.6 X10^3/uL (2.0-7.7); Basophil# 0.03 X10^3/uL; Basophil% 0.3 % (0-1); Eosinophil# 0.15 X10^3/uL; Eosinophils% 1.4 % (0-5); Hematocrit 34.5 % (37-47); Hemoglobin 11.9 g/dL (12.0-15.0); Lymphocyte # 1.65 X10^3/ul (0.83-4.51); Lymphocyte % 14.9 % (19-41); Mean Corp Hgb Conc 34.5 g/dL (32-36); Mean Corpuscular Hgb 28.6 pg (27.0-32.0); Mean Corpuscular Volume 82.9 fL (81-99); Mean Platelet Vol. 9.2 fl (6.2-12.0); Monocyte# 0.61 X10^3/uL; Monocyte% 5.5 % (0-10); NRBC Flagged by Analyzer 0 % (0-5); Neutrophil # 8.58 X10^3/uL (2.7-7.7); Neutrophil % 77.1 % (47-70); Platelet Count 211 K/mm3 (150-450); RBC Distribution Width CV 12.3 % (11.6-14.6); Red Blood Count 4.16 M/mm3 (4.2-5.4); White Blood Count 11.1 K/mm3 (4.4-11.0)
[2023-05-29 11:24] LABS: Glucose Challenge Gest 1H 50g 149 mg/dL (70-140)
[2023-05-29 11:58] LABS: HIV - WCH Non-Reactive (Nonreactive); Syphilis Antibodies Non-reactive
== END | disposition home or self-care (01) ==
LOC: PAVLAB 10:07
PROVIDERS: PCP Family Medicine; Referring Provider Obstetrics & Gynecology; Visit Provider Obstetrics & Gynecology
DX: O09.90 Supervision of high risk pregnancy, unspecified, unspecified trimester (principal); Z3A.00 Weeks of gestation of pregnancy not specified; Z13.1 Encounter for screening for diabetes mellitus
CPT/HCPCS: 36415; 82950; 85025; 86703; 86780

== ENCOUNTER → 2023-06-05 | Outpatient (CLI) | payer MEDICAID, SELFPAY ==
[2023-06-05 11:26] LABS: ALB/GLOB Ratio 0.7 RATIO (0.9-2.4); AST(SGOT) 9 U/L (15-37); Alanine Aminotransfer ALT/SGPT 15 U/L (13-56); Albumin, Serum 2.5 g/dL (3.2-5.0); Alkaline Phosphatase 70 U/L (45-117); Anion Gap 4 (5-15); BUN 9 mg/dL (7-18); BUN/Creat Ratio 20.2 RATIO (10-20); Calcium,Total 8.4 mg/dL (8.5-10.1); Chloride 109 mmol/L (98-107); Creatinine, Serum 0.45 mg/dL (0.55-1.02); EST Glomerular Filtration Rate 183 mL/min (>60); Est Glom Filt Rate - Afr Amer 221 mL/min (>60); Globulin 3.7 g/dL (2.2-4.2); Glucose 84 mg/dL (74-106); Potassium 3.9 mmol/L (3.5-5.1); Protein, Total 6.2 g/dL (6.4-8.2); Sodium Level 138 mmol/L (136-145); T4 Free Direct 0.93 ng/dL (0.76-1.46)
[2023-06-05 12:16] LABS: Glucose GTT-Gestational 1 Hr 142 mg/dL (<190)
[2023-06-05 12:18] LABS: Glucose GTT-Gestation. Fasting 84 mg/dL (<105)
[2023-06-05 13:01] LABS: Glucose GTT-Gestational 2 Hr 108 mg/dL (<165)
[2023-06-05 13:42] LABS: Glucose GTT-Gestational 3 Hr 103 L (<145)
== END | disposition home or self-care (01) ==
LOC: LAB 09:52
PROVIDERS: PCP Family Medicine; Referring Provider Advanced Practice Midwife; Visit Provider Advanced Practice Midwife
DX: O99.810 Abnormal glucose complicating pregnancy (principal); R79.89 Other specified abnormal findings of blood chemistry; Z87.59 Personal history of other complications of pregnancy, childbirth and the puerperium; Z3A.00 Weeks of gestation of pregnancy not specified
CPT/HCPCS: 36415; 80053; 82951; 82952; 84439; 84443

== ENCOUNTER → 2023-06-13 | Outpatient (CLI) | payer MEDICAID, SELFPAY ==
--- NOTE | 2023-06-13 12:24 | US_ITS ---
INDICATION: APLS EXAMINATION: Ultrasound US Biophysical Profile W/O Nonst TECHNIQUE: Transabdominal pelvic ultrasound was performed. COMPARISON: No relevant prior comparison study available LMP: Unknown. Beta-hCG: Unknown. Provided EGA: None. FINDINGS: INTRAUTERINE GESTATION(s): Single. HEART MOTION is 136 bpm. AMNIOTIC FLUID INDEX (IMMANUEL): 12.2 cm. Largest pocket measures 4.5 cm BIOPHYSICAL PROFILE (BPP): 11/12 -- Breathin/2. -- Movement: 2/2. -- Tone: 2/2. --IMMANUEL: 2/2. PRESENTATION: Cephalic PLACENTA: Posterior. There is no placenta previa or abruption. CERVIX: The cervix is closed. MATERNAL OVARIES: No adnexal masses. FREE FLUID: None. US/Biophysical Prof W/O Non Stres IMPRESSION: Normal biophysical profile with score of 8 out of 8. Electronically Signed: Maxwell Clifton MD at 15:22 EST ,
--- OUTSIDE RECORDS SUMMARY | 2023-06-13 12:32 | XMS RPT_ITS | CCD ---
Author Name Unknown Address [address] [place] [address] Organization [facility] Care Team Providers Care Talent Acquisition Manager Name Role Phone Roderick Medeiros MD Unavailable ELISEO RUCKER Primary Care Unavailable PRIYANKA LEWIS Attending Unavailable Pacer, Ms. Lesly Vieyra Attending Unavailabl e Pacer, Ms. Lesly Vieyra Attending Unavailabl e Pacer, Ms. Lesly Vieyra Attending Unavailabl e Sophia Eliseo YEBOAH Primary Care Provider [phone] Sophia Eliseo YEBOAH Unavailable [phone] YOGI-MORREN, SUDHIR Referring Unavailable HILLS, ELISEO D Primary Care Unavailable YOGI-MORREN, SUDHIR Referring Unavailable HILLS, ELISEO D Primary Care Unavailable YOGI-MORREN, SUDHIR Referring Unavailable HILLS, ELISEO D Primary Care Unavailable YOGI-MORREN, SUDHIR Attending Unavailable HILLS, ELISEO D Referring Unavailable HILLS, ELISEO D Primary Care Unavailable EDGAR HAYWARD DO Attending Unavailable EDGAR HAYWARD DO Primary Care Unavailable EDGAR HAYWARD DO Admitting Unavailable HILLS, ELISEO Referring Unavailable HILLS, ELISEO Consulting Unavailable PROVIDER, UNKNOWN Consulting Unavailable HILLS, ELISEO Admitting Unavailable HILLS, ELISEO Attending Unavailable HILLS, ELISEO Consulting Unavailable HILLS, ELISEO Primary Care Unavailable PROVIDER, UNKNOWN Consulting Unavailable ADELA ARMENDARIZ Referring Unavailab SILVIA Agosto Attending Unavailable JOSEY BAIRD Primary Care Unavailable Allergies Allergy Classification Reported Allergen(s) Allergy Type Date of Onset Reaction(s) Facility (2 sources) Meperidine; Translations: [DEMEROL] Drug Allergy 2 rash [facility] Work Phone: (1 source) STINGING INSECTS; Translations: [STINGING INSECTS] allergy to substance 0 swelling [facility] Work Phone: (1 source) Meperidine Drug Allergy [facility] Repository (1 source) MORPHINE AND RELATED; Translations: [MORPHINE AND RELATED] Propensity to adverse reactions to drug (disorder) 3 [facility] Repository Problems Active Problems Problem Classification Problem Date Documented Da te Episodic/Chronic Menstrual disorders (1 source) Amenorrhea, unspecified; Translations: [Amenorrhea, unspecified] Onset: 04-08-2023 Chronic Other connective tissue disease (1 source) Other synovitis and tenosynovitis, right forearm; Translations: [Other synovitis and tenosynovitis, right forearm] Onset: 05-10-2019 05-10-2019 Episodic Thyroid disorders (4 sources) Hyperthyroidism; Translations: [Thyrotoxicosis, unspecified without thyrotoxic crisis or storm] Onset: 04-24-2022 Chronic Thyroid disorders (3 sources) Disorder of thyroid gland; Translations: [Disorder of thyroid, unspecified] Onset: 07-17-2022 Episodic Past or Other Problems Problem Classification Problem Date Documented Da te Episodic/Chronic Unclassified (1 source) Problem Results Test Name Value Interpretation Reference Range Facil ity Vital Signs Date Time Vital Sign Value Performing Clinician Facility NEGATED: Highlighted [id number] 15:35-0500 BMI (Body Mass Index) 27.06 kg/m2 Adela Holloway [facility] Work Phone: NEGATED: Highlighted [id number] 15:35-0500 Body weight 73.48 kg Adela Jewel [facility] Work Phone: NEGATED: Highlighted [id number] 15:35-0500 Body weight 74 kg Adela Jewel [facility] Work Phone: NEGATED: Highlighted [id number] 15:35-0500 BP Diastolic 73 mm[Hg] Adela Holloway [facility] Work Phone: NEGATED: Highlighted [id number] 15:35-0500 BP Systolic 128 mm[Hg] [facility] Work Phone: NEGATED: Highlighted [id number] 15:35-0500 Height 165.1 cm [facility] Work Phone: NEGATED: Highlighted [id number] 15:35-0500 Height 165 cm [facility] Work Phone: NEGATED: Highlighted [id number] 15:35-0500 Pulse (Heart Rate) 78 /min [facility] Work Phone: Encounters Encounter Date Encounter Type Care Provider Facility Start: 04-14-2023 End: 04-14-2023 ambulatory [facility] Start: 04-08-2023 End: 04-08-2023 ambulatory [facility] Start: 07-17-2022 End: 07-17-2022 ambulatory SUDHIR BLACKMAN Facility:[facility] Start: 07-17-2022 End: 07-17-2022 Subsequent hospital visit by physician [facility] Work Phone: Radiology Procedures Date Procedure Procedure Detail Performing Clinician Start: 07-17-2022 Us soft tissue head & neck real time imge joe Blackman MD Work Phone: Start: 05-30-2022 Urinalysis EDGAR RAMIREZ Plan of Treatment Date Care Activity Detail Author Start: 07-26-2030 Urine microalbumin profile DTaP,Tdap,Td Vaccine (7 - Td or Tdap) [facility] Start: 12-06-2022 Influenza vaccination Influenza Vaccine (#1) [facility] Start: 06-01-2022 End: 08-01-2022 Thyrotropin [Units/volume] in Serum or Plasma TSH BLD Lab Routine Acquired hypothyroidism Expected: 06/01/2022, Expires: 08/01/2022 [facility] Work Phone: Immunizations Immunization Date Immunization Notes Care Provider Roland nj 02-02-2019 influenza virus vacc ine, unspecified formulation [facility] 2 Work Phone: [facility] Payers Date Payer Category Payer Medicaid [id number] 2018 Unknown [id number] 1998 Unknown [id number] 2.16. [id number] 1998 Unknown [id number] 2.16. [id number] 1998 Unknown [id number] 2.16. [id number] 1998 Unknown [id number] 2.16. [id number] 1998 Unknown [id number] [id number] 1998 Unknown [id number] 1998 Unknown [id number] 2.16. [id number] Social History Date Type Detail Facility Start: 05-10-2019 End: 05-10-2019 Assertion Unknown if ever smoked [facility] Work Phone: Start: 2000 Sex Assigned At Female [facility] Start: 04-19-2022 History of Social function [facility] Start: 04-19-2022 Area Deprivation Index Area Deprivation Index Answer Date Recorded National Score (1-100), lower number is lower risk 57 State Score (1-10), lower number is lower risk Not on file Data from: https://www.neighborhood atlas.medicine.[facility].edu/ . Last address used for calculation [address] [facility] National Score (1-10 0), lower number is lower risk 57 [facility] Start: 04-16-2022 Gender identity Identifies as female gender (finding) [facility] Start: 04-16-2022 Sexual orientation Heterosexual (finding) [facility] Clinical Notes 04-19-2022 to 07-17-2022 Shawnee Richardson RDMS - 07/17/2022 7:45 AM EDTTelephone Encounter - Lety Shanti - 04/22/2022 8:56 AM Luis Blackman MD - 04/19/2022 11:16 AM EST Note Date & Type Note Facility 07-17-2022 Note HNO ID: [id number] Author: Shawnee Richardson RDMS Service: ? Author Type: Afloat Cryptologic Manager Type: Progress Notes Filed: 07/17/2022 7:59 AM Note Text: Radiology Service Progress Note PATIENT NAME: Renay Noel DATE OF SERVICE: July 17, 2022 TIME: 7:59 AM PATIENT IDENTITY VERIFICATION COMPLETED USING TWO (2) IDENTIFIERS: Name and Date of confirmed by patient verbally. FALL SCREENING: Has the patient had 2 falls in the last year or 1 fall with injury or currently using an Ambulatory Assistive Device (Walker, Cane, Wheelchair, Crutches, etc.)? No PATIENT GENDER DATA: Female. status: : No status: NO. PATIENT RELEVANT IMPLANT DATA REVIEWED: Not Applicable RADIOLOGY DEPARTMENT: Ultrasound PERIPHERAL IV DATA: Not applicable SIGNED BY: Shawnee Richardson RDMS July 17, 2022 7:59 AM [facility] 07-17-2022 History of Presen t illness Narrative Radiology Service Progress Note PATIENT NAME: Renay Noel DATE OF SERVICE: July 17, 2022 TIME: 7:59 AM PATIENT IDENTITY VERIFICATION COMPLETED USING TWO (2) IDENTIFIERS: Name and Date of confirmed by patient verbally. FALL SCREENING: Has the patient had 2 falls in the last year or 1 fall with injury or currently using an Ambulatory Assistive Device (Walker, Cane, Wheelchair, Crutches, etc.)? No PATIENT GENDER DATA: Female. status: : No status: NO. PATIENT RELEVANT IMPLANT DATA REVIEWED: Not Applicable RADIOLOGY DEPARTMENT: Ultrasound PERIPHERAL IV DATA: Not applicable SIGNED BY: Shawnee Richardson RDMS July 17, 2022 7:59 AM documented in this encounter [facility] 04-22-2022 Miscellaneous Notes Mailed visit notes to: Eliseo MEZA) [address] [facility] [address] Lety Jennifer Property Preservation Specialist [facility] documented in this encounter [facility] 04-19-2022 Note HNO ID: [id number] Author: Sudhir Blackman MD Service: ? Author Type: Physician Type: Progress Notes Filed: 04/19/2022 11:57 AM Note Text: ENDO THYROID INITIAL CONSULT SERVICE DATE: 04/19/2022 SERVICE TIME: 11:17 AM VIRTUAL VISIT Patient is being evaluated today via a Virtual Visit using a HIPPA compliant platform, zoom via [employer]ATE[employer]S LIST. It required patient-provider interaction for the medical decision making as documented below. REASON FOR CONSULT: Hyperthyroidism REQUESTING PHYSICIAN: Eliseo Rucker ([facility]) [address] [facility] [address] My final recommendations will be communicated back to the requesting physician by way of shared Medical record or letter to requesting physician via US mail. PRIMARY CARE PHYSICIAN: Eliseo Rucker PA-C Subjective HISTORY OF PRESENT ILLNESS: Ms. Noel is a 21 year old female presenting as a new patient to me regarding Abnormal thyroid function tests . She was told that she has an overactive thyroid at age 14 years. She did not receive treatment for this at that time. She was started on methimazole 1 month ago and her dose is 5 mg three times day. Has had 3 miscarriages at 6 weeks of gestation and 1 at 8 weeks of gestation. She has 2 children born full term via c section. Severity, modifying factors, context and associated signs and symptoms are as follows: Thyroid Pain: yes Mass Effect: difficulty swallowing, was told she has a small nodule that has to be checked every 3-5 years Energy: stable and OK Sleep: Restless, she takes trazodone to sleep Temperature Intolerance: Cold Intolerance FINE GRADER: occurs every month, menses lasts 2-10 days GI: denies loose stools, frequent stools, + constipation Weight: fluctuates 10-20 lbs Eyes: no Dryness Memory: Fair Diaphoresis: Increased Skin: + dry skin Neuro: + headaches once per week, lasts 1 day, relieved by tylenol Radiological imaging with contrast dyes within the last 3 months? no History of radiation exposure to head or neck area? no PAST MEDICAL HISTORY Diagnosis Date Heart murmur Hyperthyroidism Thyroid nodule PAST SURGICAL HISTORY Procedure Laterality Date APPENDECTOMY SECTION HX REMOVAL GALLBLADDER TONSILLECTOMY AND ADENOIDECTOMY No family history on file. (Not in a hospital admission) No current outpatient medications on file. No current facility-administered medications for this visit. ALLERGIES Not on File REVIEW OF SYSTEMS: Answers submitted by the patient for this visit: Endocrine Review of Systems (Submitted on 04/16/2022) Fatigue: No Night Sweats: Yes Recent Unintentional Weight Change: Yes Skin Color Changes: No Post-Nasal Drip: Yes Thyroid Pain (lower neck): Yes Trouble Swallowing: Yes Vision Disturbance: No Chest Pain: Yes Leg Swelling: No Blood Clots?: No Leg Pain while walking?: No Difficulty Breathing?: No Heartburn: No Nausea: No Vomiting?: No Diarrhea: No Constipation: Yes Abdominal Pain: No Bone Pain?: No Muscle Aches: No Muscle Weakness: No Joint Pain or Stiffness: No Headaches: Yes Dizziness: No Numbness?: No Urgency to Urinate?: Yes Increased Urination?: Yes Slow or Small Urine Stream?: No Are your menstrual cycles regular?: No Are your menstrual cycles irregular?: Yes Have your menstrual cycles stopped?: No Flushing?: Yes Hot Flashes?: Yes Increased Thirst: Yes Change in Body Hair?: Yes Cold Intolerance: Yes Heat Intolerance?: Yes DATA: Diagnostic tests reviewed for today's visit: Labs per pt today Component Latest Ref Rng AND Units 03/22/2022 Free T3 2.3 - 4.1 pg/mL 2.7 Thyroglobulin Ab <14.4 IU/mL 1.4 09/01/2021 Impression/Recommendations 21 year old patient here for the following (E05.90) Hyperthyroid (primary encounter diagnosis) Comment: she has carried this diagnosis since age 13 years old. Clinically, she has constipation and cold intolerance. I reviewed her free T3 from March and it was normal so I am concerned that she was started on methimazole 5 mg TID at that time. Today I discussed with her the risks of over treatment and possible hypothyroidism. We will check labs and then adjust the dose after Plan: TSH BLD T4 FREE/FREE THYROX T3 FREE BLD TSH RECEPTOR AB THYROID PEROXIDASE ANTIBODY BLOOD, All the patient`s questions were answered. The patient expressed understanding of all the information relayed and has agreed to this plan. SIGNATURE: Sudhir Blackman MD PATIENT NAME: Renay Noel DATE: April 19, 2022 TIME: 11:17 AM [facility] 04-19-2022 History of Presen t illness Narrative Images from the original note were not included. ENDO THYROID INITIAL CONSULT SERVICE DATE: 04/19/2022 SERVICE TIME: 11:17 AM VIRTUAL VISIT Patient is being evaluated today via a Virtual Visit using a HIPPA compliant platform, zoom via TATE'S LIST. It required patient-provider interaction for the medical decision making as documented below. REASON FOR CONSULT: Hyperthyroidism REQUESTING PHYSICIAN: Eliseo Rucker ([facility]) [address] [facility] [address] My final recommendations will be communicated back to the requesting physician by way of shared Medical record or letter to requesting physician via US mail. PRIMARY CARE PHYSICIAN: Eliseo Rucker PA-C Subjective HISTORY OF PRESENT ILLNESS: Ms. Noel is a 21 year old female presenting as a new patient to me regarding Abnormal thyroid function tests . She was told that she has an overactive thyroid at age 14 years. She did not receive treatment for this at that time. She was started on methimazole 1 month ago and her dose is 5 mg three times day. Has had 3 miscarriages at 6 weeks of gestation and 1 at 8 weeks of gestation. She has 2 children born full term via c section. Severity, modifying factors, context and associated signs and symptoms are as follows: Thyroid Pain: yes Mass Effect: difficulty swallowing, was told she has a small nodule that has to be checked every 3-5 years Energy: stable and OK Sleep: Restless, she takes trazodone to sleep Temperature Intolerance: Cold Intolerance FINE GRADER: occurs every month, menses lasts 2-10 days GI: denies loose stools, frequent stools, + constipation Weight: fluctuates 10-20 lbs Eyes: no Dryness Memory: Fair Diaphoresis: Increased Skin: + dry skin Neuro: + headaches once per week, lasts 1 day, relieved by tylenol Radiological imaging with contrast dyes within the last 3 months? no History of radiation exposure to head or neck area? no PAST MEDICAL HISTORY Diagnosis Date Heart murmur Hyperthyroidism Thyroid nodule PAST SURGICAL HISTORY Procedure Laterality Date APPENDECTOMY SECTION HX REMOVAL GALLBLADDER TONSILLECTOMY & ADENOIDECTOMY <AGE 10 No family history on file. (Not in a hospital admission) No current outpatient medications on file. No current facility-administered medications for this visit. ALLERGIES Not on File REVIEW OF SYSTEMS: Answers submitted by the patient for this visit: Endocrine Review of Systems (Submitted on 04/16/2022) Fatigue: No Night Sweats: Yes Recent Unintentional Weight Change: Yes Skin Color Changes: No Post-Nasal Drip: Yes Thyroid Pain (lower neck): Yes Trouble Swallowing: Yes Vision Disturbance: No Chest Pain: Yes Leg Swelling: No Blood Clots?: No Leg Pain while walking?: No Difficulty Breathing?: No Heartburn: No Nausea: No Vomiting?: No Diarrhea: No Constipation: Yes Abdominal Pain: No Bone Pain?: No Muscle Aches: No Muscle Weakness: No Joint Pain or Stiffness: No Headaches: Yes Dizziness: No Numbness?: No Urgency to Urinate?: Yes Increased Urination?: Yes Slow or Small Urine Stream?: No Are your menstrual cycles regular?: No Are your menstrual cycles irregular?: Yes Have your menstrual cycles stopped?: No Flushing?: Yes Hot Flashes?: Yes Increased Thirst: Yes Change in Body Hair?: Yes Cold Intolerance: Yes Heat Intolerance?: Yes DATA: Diagnostic tests reviewed for today's visit: Labs per pt today Component Latest Ref Rng & Units 03/22/2022 Free T3 2.3 - 4.1 pg/mL 2.7 Thyroglobulin Ab <14.4 IU/mL 1.4 09/01/2021 Impression/Recommendations 21 year old patient here for the following (E05.90) Hyperthyroid (primary encounter diagnosis) Comment: she has carried this diagnosis since age 13 years old. Clinically, she has constipation and cold intolerance. I reviewed her free T3 from March and it was normal so I am concerned that she was started on methimazole 5 mg TID at that time. Today I discussed with her the risks of over treatment and possible hypothyroidism. We will check labs and then adjust the dose after Plan: TSH BLD T4 FREE/FREE THYROX T3 FREE BLD TSH RECEPTOR AB THYROID PEROXIDASE ANTIBODY BLOOD, All the patient`s questions were answered. The patient expressed understanding of all the information relayed and has agreed to this plan. SIGNATURE: Sudhir Blackman MD PATIENT NAME: Renay Noel DATE: April 19, 2022 TIME: 11:17 AM documented in this encounter [facility] Diagnosis Acquired hypothyroidism- Primary Unspecified hypothyroidism [facility] Diagnosis Swelling of thyroid gland- Primary Unspecified disorder of thyroid [facility]* Diagnosis Swelling of thyroid gland Unspecified disorder of thyroid documented in this encounter [facility] for referral (narrative)* Diagnostic Procedure Only (Routine) - Pending Review Specialty Diagnoses / Procedures Referred By Sandy michel Referred To Contact US IMAGING Diagnoses Swelling of thyroid gland Procedures US THYROID/PARATHYROID US SOFT TISSUE HEAD & NECK REAL TIME IMGE Sudhir Kirk MD [address] [place] [address] Us Imaging Referral ID Status Reason Start Date Expiration Date Visits Requested Visits Authorized [id number] Pending Review Auto-Generat ed Referral 06/21/2022 07/21/2023 1 1 [facility] for referral (narrative)* Diagnostic Procedure Only (Routine) - Closed Specialty Diagnoses / Procedures Referred By Sandy michel Referred To Contact US IMAGING Diagnoses Swelling of thyroid gland Procedures US THYROID/PARATHYROID US SOFT TISSUE HEAD & NECK REAL TIME IMGE Sudhir Kirk MD [address] [id number] [facility] [place] [address] Referral ID Status Reason Start Date Expiration Date V isits Requested Visits Authorized [id number] Closed Auto-Generate d Referral 06/21/2022 07/21/2023 1 1 [facility] Chief Complaint Chief Complaint Description Start Date bilateral hand pain Preliminary chief co mplaint data, not yet signed by the author as of Instructions Instruction Description Start Date CompletedPatient advised to follow-up with Primary Care Physician for BMI management. Advance Directives There may be information available, but it has not been provided by the sender. No Advanced Directives Records FoundNo Advanced Directives Records FoundNo Advanced Directives Records FoundNo Advanced Directives Records FoundNo Advanced Directives Records FoundNo Advanced Directives Records Found Assessments There may be information available, but it has not been provided by the sender. Review of System There may be information available, but it has not been provided by the sender. Family History There may be information available, but it has not been provided by the sender.No Family History Records FoundNo Family History Records FoundNo Family History Records FoundNo Family History Records FoundNo Family History Records FoundNo Family History Records Found History of Present Illness There may be information available, but it has not been provided by the sender. Summary Purpose Additional Source Comments Reason for Visit (unrecogniz ed section and content) Reason Comments Thyroid Problem Reason Comments CHART NOTES Mailed visit notes t o: Eliseo Rucker (OBINNA)[address] [facility] [address] Reason Comments Radiology US Specialty Diagnoses / Procedures Referred By Contac t Referred To Contact US IMAGING Diagnoses Swelling of thyroid gland Procedures US THYROID/PARATHYROID US SOFT TISSUE HEAD & NECK REAL TIME IMGE Sudhir Kirk MD [address] [place] [address] Us Imaging [id number] Referral ID Status Reason Start Date Expiration Date V isits Requested Visits Authorized [id number] Closed Auto-Generate d Referral 06/21/2022 07/21/2023 1 1 INFORMATION SOURCE (unrecogn ized section and content) DATE CREATED AUTHOR AUTHOR'S ORGANIZ ATION 09/07/2021 [facility] DATE CREATED AUTHOR AUTHOR'S ORGANIZ ATION 03/28/2022 [facility] DATE CREATED AUTHOR AUTHOR'S ORGANIZ ATION 07/21/2022 [facility] DATE CREATED AUTHOR AUTHOR'S ORGANIZ ATION 04/08/2023 [facility] DATE CREATED AUTHOR AUTHOR'S ORGANIZ ATION 04/15/2023 [facility] Source Comments (unrecognize d section and content) In the event this informatio n is protected by the Federal Confidentiality of Alcohol and Drug Abuse Patient Records regulations: The Federal rules restrict any use of the information to criminally investigate or prosecute any alcohol or drug abuse patient.[facility] the event this information is protected by the Federal Confidentiality of Alcohol and Drug Abuse Patient Records regulations: The Federal rules restrict any use of the information to criminally investigate or prosecute any alcohol or drug abuse patient.[facility] the event this information is protected by the Federal Confidentiality of Alcohol and Drug Abuse Patient Records regulations: The Federal rules restrict any use of the information to criminally investigate or prosecute any alcohol or drug abuse patient.[facility] Hospital[facility] the event this information is protected by the Federal Confidentiality of Alcohol and Drug Abuse Patient Records regulations: The Federal rules restrict any use of the information to criminally investigate or prosecute any alcohol or drug abuse patient.[facility] Hospital[facility] the event this information is protected by the Federal Confidentiality of Alcohol and Drug Abuse Patient Records regulations: The Federal rules restrict any use of the information to criminally investigate or prosecute any alcohol or drug abuse patient.[facility] Care Teams (unrecognized sec tion and content) Talent Acquisition Manager Relationship Specialty Start Date End Date Eliseo Rucker PA-C PCP - General Family Medicine 08/03/19 Eliseo Rucker PA-C Referring Family Medicine 08/03/19 Talent Acquisition Manager Relationship Specialty Start Date End Date Eliseo Rucker PA-C PCP - General Family Medicine 08/03/19 Eliseo Rucker PA-C Referring Family Medicine 08/03/19 Talent Acquisition Manager Relationship Specialty Start Date End Date Eliseo Rucker PA-C PCP - General Family Medicine 08/03/19 Eliseo Rucker PA-C Referring Family Medicine 08/03/19 Talent Acquisition Manager Relationship Specialty Start Date End Date Eliseo Rucker PA-C PCP - General Family Medicine 08/03/19 Eliseo Rucker PA-C Referring Family Medicine 08/03/19 FOR RECORDS PERTAINING TO PATIENTS WHO ARE OR HAVE BEEN ENROLLED IN A CHEMICAL DEPENDENCY/SUBSTANCEABUSE PROGRAM, SOME INFORMATION MAY BE OMITTED. This clinical summary was aggregated from multiple sources. Caution should be exercised in using it in the provision of clinical care. This summary normalizes information from multiple sources, and as a consequence, information in this document may materially change the coding, format and clinical context of patient data. In addition, data may be omitted in some cases. CLINICAL DECISIONS SHOULD BE BASED ON THE PRIMARY CLINICAL RECORDS. [facility] [employer] provides no warranty or guarantee of the accuracy or completeness of information in this document.
== END | disposition home or self-care (01) ==
LOC: US 12:17
PROVIDERS: PCP Family Medicine; Referring Provider Advanced Practice Midwife; Visit Provider Advanced Practice Midwife
DX: R76.0 Raised antibody titer (principal)
CPT/HCPCS: 76819

== ENCOUNTER → 2023-06-16 | Outpatient (CLI) | payer MEDICAID, SELFPAY ==
[2023-06-16 11:57] LABS: Absolute Lymphocyte Count 1.92 X10^3/uL (0.83-4.51); Absolute Neutrophil Count 9.6 X10^3/uL (2.0-7.7); Basophil# 0.02 X10^3/uL; Basophil% 0.2 % (0-1); Eosinophils% 0.8 % (0-5); Hematocrit 36.8 % (37-47); Hemoglobin 12.8 g/dL (12.0-15.0); Lymphocyte # 1.92 X10^3/ul (0.83-4.51); Lymphocyte % 14.9 % (19-41); Mean Corp Hgb Conc 34.8 g/dL (32-36); Mean Corpuscular Hgb 28.4 pg (27.0-32.0); Mean Corpuscular Volume 81.8 fL (81-99); Mean Platelet Vol. 9.3 fl (6.2-12.0); Monocyte# 1.05 X10^3/uL; Monocyte% 8.2 % (0-10); NRBC Flagged by Analyzer 0 % (0-5); Neutrophil # 9.61 X10^3/uL (2.7-7.7); Neutrophil % 74.7 % (47-70); Platelet Count 219 K/mm3 (150-450); RBC Distribution Width CV 12.2 % (11.6-14.6); White Blood Count 12.9 K/mm3 (4.4-11.0)
[2023-06-16 12:12] LABS: ALB/GLOB Ratio 0.7 RATIO (0.9-2.4); AST(SGOT) 15 U/L (15-37); Alanine Aminotransfer ALT/SGPT 20 U/L (13-56); Albumin, Serum 2.8 g/dL (3.2-5.0); Alkaline Phosphatase 86 U/L (45-117); Anion Gap 5 (5-15); BUN 8 mg/dL (7-18); BUN/Creat Ratio 14.7 RATIO (10-20); Calcium,Total 8.9 mg/dL (8.5-10.1); Chloride 106 mmol/L (98-107); Creatinine, Serum 0.55 mg/dL (0.55-1.02); EST Glomerular Filtration Rate 144 mL/min (>60); Est Glom Filt Rate - Afr Amer 175 mL/min (>60); Globulin 4.2 g/dL (2.2-4.2); Glucose 84 mg/dL (74-106); Potassium 3.9 mmol/L (3.5-5.1); Sodium Level 136 mmol/L (136-145)
[2023-06-16 12:28] LABS: Protein, Urine (Random) < 6.0 mg/dL (<11.9); Protein:Creat Ratio 118 mg/g CRE (0-200)
--- OUTSIDE RECORDS SUMMARY | 2023-06-16 12:46 | XMS RPT_ITS | CCD ---
Author Name Unknown Address [address] [place] [address] Organization [facility] Care Team Providers Care Manager Of Merchandising Name Role Phone Roderick Medeiros MD Unavailable ELISEO RUCKER Primary Care Unavailable PRIYANKA LEWIS Attending Unavailable Pacer, Ms. Lesly Vieyra Attending Unavailabl e Pacer, Ms. Lesly Vieyra Attending Unavailabl e Pacer, Ms. Lesly Vieyra Attending Unavailabl e [place] Eliseo YEBOAH Primary Care Provider [phone] [place] Eliseo YEBOAH Unavailable YOGI-MORREN, SUDHIR Referring Unavailable HILLS, ELISEO [...] Meperidine; Translations: [DEMEROL] Drug Allergy 2 rash [facility] Work Phone: (1 source) STINGING INSECTS; Translations: [STINGING INSECTS] allergy to substance 0 swelling [facility] Work Phone: (1 source) Meperidine Drug Allergy [facility] Repository (1 source) MORPHINE AND RELATED; Translations: [MORPHINE AND RELATED] Propensity to adverse reactions to drug (disorder) 3 [facility] Repository Problems Active Problems Problem Classification [...] Sign Value Performing Clinician Facility NEGATED: Highlighted [id number] 15:35-0500 BMI (Body Mass Index) 27.06 kg/m2 Adela Holloway [facility] Work Phone: NEGATED: Highlighted [id number] 15:35-0500 Body weight 73.48 kg Adela Jewel [facility] Work Phone: NEGATED: Highlighted [id number] 15:35-0500 Body weight 74 kg Adela Jewel [facility] Work Phone: NEGATED: Highlighted [id number] 15:35-0500 BP Diastolic 73 mm[Hg] Adela Holloway [facility] Work Phone: NEGATED: Highlighted [id number] 15:35-0500 BP Systolic 128 mm[Hg] Adela [facility] Work Phone: NEGATED: Highlighted [id number] 15:35-0500 Height 165.1 cm Adela [facility] Work Phone: NEGATED: Highlighted [id number] 15:35-0500 Height 165 cm Adela [facility] Work Phone: NEGATED: Highlighted [id number] 15:35-0500 Pulse (Heart Rate) 78 /min Adela [facility] Work Phone: Encounters Encounter Date Encounter Type Care Provider Facility Start: 04-14-2023 End: 04-14-2023 ambulatory [facility] Start: 04-08-2023 End: 04-08-2023 ambulatory [facility] Start: 07-17-2022 End: 07-17-2022 ambulatory SUDHIR BLACKMAN Facility:[facility] Start: 07-17-2022 End: 07-17-2022 Subsequent hospital visit by physician [facility] Work Phone: Radiology Procedures Date Procedure Procedure Detail Performing Clinician Start: 07-17-2022 Us soft tissue head & neck real time imge joe Blackman MD Work Phone: Start: 05-30-2022 Urinalysis EDGAR RAMIREZ Plan of Treatment Date Care Activity Detail Author Start: 07-26-2030 Urine microalbumin profile DTaP,Tdap,Td Vaccine (7 - Td or Tdap) [facility] Start: 12-06-2022 Influenza vaccination Influenza Vaccine (#1) [facility] Start: 06-01-2022 End: 08-01-2022 Thyrotropin [Units/volume] in Serum or Plasma TSH BLD Lab Routine Acquired hypothyroidism Expected: 06/01/2022, Expires: 08/01/2022 [facility] Work Phone: Immunizations Immunization Date Immunization Notes Care Provider Roland nj 02-02-2019 influenza virus vacc ine, unspecified formulation Us 2 Work Phone: [facility] Payers Date Payer Category Payer Medicaid [id number] 2018 Unknown [id number] 1998 Unknown [id number] [id number]. [id number] 1998 Unknown [id number] 2.16. [id number] 1998 Unknown [id number] 2.16. [id number] 1998 Unknown [id number] 2.16. [id number] 1998 Unknown [id number] [id number] 1998 Unknown [id number] [id number] 1998 Unknown [id number] 2.16. [id number] Social History Date Type Detail Facility Start: 05-10-2019 End: 05-10-2019 Assertion Unknown if ever smoked [facility] Work Phone: Start: 2000 Sex Assigned At Female [facility] Start: 04-19-2022 History of Social function [facility] Start: 04-19-2022 Area Deprivation Index Area Deprivation Index Answer Date Recorded National Score (1-100), lower number is lower risk 57 State Score (1-10), lower number is lower risk Not on file Data from: https://www.neighborhood atlas.medicine.[facility].edu/ . Last address used for calculation [address] [facility] National Score (1-10 0), lower number is lower risk 57 [facility] Start: 04-16-2022 Gender identity Identifies as female gender (finding) [facility] Start: 04-16-2022 Sexual orientation Heterosexual (finding) [facility] Clinical Notes 04-19-2022 to 07-17-2022 Shawnee Richardson RDMS - 07/17/2022 7:45 AM EDTTelephone Encounter - Lety Shanti - 04/22/2022 8:56 AM Luis Blackman MD - 04/19/2022 11:16 AM EST Note Date & Type Note Facility 07-17-2022 Note HNO ID: [id number] Author: Shawnee Richardson RDMS Service: ? 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 documented in this encounter [facility] 04-19-2022 Note HNO ID: [id number] Author: Sudhir Blackman MD Service: ? Author Type: Physician Type: Progress Notes Filed: 04/19/2022 11:57 AM Note Text: ENDO THYROID INITIAL CONSULT SERVICE DATE: 04/19/2022 SERVICE TIME: 11:17 AM VIRTUAL VISIT Patient is being evaluated today via a Virtual Visit using a HIPPA compliant platform, zoom via appssavvy. It required patient-provider interaction for the medical decision making as documented below. 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 ENDO THYROID INITIAL CONSULT SERVICE DATE: 04/19/2022 SERVICE TIME: 11:17 AM VIRTUAL VISIT Patient is being evaluated today via a Virtual Visit using a HIPPA compliant platform, zoom via appssavvy. It required patient-provider interaction for the medical decision making as documented below. 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: occurs every month, menses lasts 2-10 days [...] TIME: 11:17 AM documented in this encounter [facility] Acquired hypothyroidism- Primary Unspecified hypothyroidism [facility] Diagnosis Swelling of thyroid gland- Primary Unspecified disorder of thyroid [facility] Diagnosis Swelling of thyroid gland Unspecified disorder of thyroid documented in this encounter [facility] for referral (narrative)* Diagnostic Procedure Only (Routine) - Pending Review Specialty Diagnoses / Procedures Referred By Sandy michel Referred To Contact US IMAGING Diagnoses Swelling of thyroid gland Procedures US THYROID/PARATHYROID US SOFT TISSUE HEAD & NECK REAL TIME IMGE Sudhir Kirk MD [address] [place] [address] [facility] Referral ID Status Reason Start Date Expiration Date Visits Requested Visits Authorized [id number] Pending Review Auto-Generat ed Referral 06/21/2022 07/21/2023 1 1 [facility] for referral (narrative)* Diagnostic Procedure Only (Routine) - Closed Specialty Diagnoses / Procedures Referred By Sandy michel Referred To Contact US IMAGING Diagnoses Swelling of thyroid gland Procedures US THYROID/PARATHYROID US SOFT TISSUE HEAD & NECK REAL TIME IMGE Sudhir Kirk MD [address] [place] [id number] [facility] [place] [address] Referral ID Status Reason Start Date Expiration Date V isits Requested Visits Authorized [id number] Closed Auto-Generate d Referral 06/21/2022 07/21/2023 1 1 [facility] Chief Complaint Chief Complaint Description Start Date [...] visit notes t o: Eliseo Rucker (OBINNA)[address] [facility] [address] Reason Comments Radiology US Specialty Diagnoses / Procedures Referred By Contac t Referred To Contact US IMAGING Diagnoses Swelling of thyroid gland Procedures US THYROID/PARATHYROID US SOFT TISSUE HEAD & NECK REAL TIME IMGE Sudhir Kirk MD [address] [place] [address] Us Imaging [id number] Referral ID Status Reason Start Date Expiration Date V isits Requested Visits Authorized [id number] Closed Auto-Generate d Referral 06/21/2022 07/21/2023 1 1 INFORMATION SOURCE (unrecogn ized section and content) DATE CREATED AUTHOR AUTHOR'S ORGANIZ ATION 09/07/2021 [facility] DATE CREATED AUTHOR AUTHOR'S ORGANIZ ATION 03/28/2022 [facility] DATE CREATED AUTHOR AUTHOR'S ORGANIZ ATION 07/21/2022 [facility] DATE CREATED AUTHOR AUTHOR'S ORGANIZ ATION 04/08/2023 [facility] DATE CREATED AUTHOR AUTHOR'S ORGANIZ ATION 04/15/2023 [facility] Source Comments (unrecognize d section and content) In the event this informatio n is protected by the Federal Confidentiality of Alcohol and Drug Abuse Patient Records regulations: The Federal rules restrict any use of the information to criminally investigate or prosecute any alcohol or drug abuse patient.[facility] the event this information is protected by the Federal Confidentiality of Alcohol and Drug Abuse Patient Records regulations: The Federal rules restrict any use of the information to criminally investigate or prosecute any alcohol or drug abuse patient.[facility] Center[facility] the event this information is protected by the Federal Confidentiality of Alcohol and Drug Abuse Patient Records regulations: The Federal rules restrict any use of the information to criminally investigate or prosecute any alcohol or drug abuse patient.[facility] Center[facility] the event this information is protected by the Federal Confidentiality of Alcohol and Drug Abuse Patient Records regulations: The Federal rules restrict any use of the information to criminally investigate or prosecute any alcohol or drug abuse patient.[facility] Center[facility] the event this information is protected by the Federal Confidentiality of Alcohol and Drug Abuse Patient Records regulations: The Federal rules restrict any use of the information to criminally investigate or prosecute any alcohol or drug abuse patient.[facility] Care Teams (unrecognized sec tion and content) Manager Of Merchandising Relationship Specialty Start Date End Date Eliseo Rucker PA-C PCP - General Family Medicine 08/03/19 Eliseo Rucker PA-C Referring Family Medicine 08/03/19 Manager Of Merchandising Relationship Specialty Start Date End Date Eliseo Rucker PA-C PCP - General Family Medicine 08/03/19 Eliseo Rucker PA-C Referring Family Medicine 08/03/19 Manager Of Merchandising Relationship Specialty Start Date End Date Eliseo Rucker PA-C PCP - General Family Medicine 08/03/19 Eliseo Rucker PA-C Referring Family Medicine 08/03/19 Manager Of Merchandising Relationship Specialty Start Date End Date Eliseo [...] BE BASED ON THE PRIMARY CLINICAL RECORDS. [facility] [employer] provides no warranty or guarantee of the accuracy or completeness of information in this document.
== END | disposition home or self-care (01) ==
PROVIDERS: PCP Family Medicine; Referring Provider Obstetrics & Gynecology; Visit Provider Obstetrics & Gynecology
DX: O16.9 Unspecified maternal hypertension, unspecified trimester (principal); R51.9 Headache, unspecified; Z3A.00 Weeks of gestation of pregnancy not specified
CPT/HCPCS: 36415; 80053; 82570; 84156; 85025

== ENCOUNTER → 2023-06-20 | Outpatient (CLI) | payer MEDICAID, SELFPAY ==
--- NOTE | 2023-06-20 12:17 | US_ITS ---
STUDY: OBSTETRICAL ULTRASOUND - BIOPHYSICAL PROFILE REASON FOR EXAM: Female, 22 years old APLS LMP: Unknown. PRIOR ULTRASOUND: 06/13/2023 TECHNIQUE: Transabdominal TECHNICAL QUALITY: Adequate. FINDINGS: There is a single intrauterine fetus. The fetus is in a cephalic presentation. There is demonstrated cardiac activity with a heart rate of 157 bpm. There is a normal amniotic fluid volume. The largest amniotic fluid pocket measures 4.1 x 5.1 cm. The amniotic fluid index (IMMANUEL) is 13.65 cm. The placenta is posterior in location and is not low lying. There are Grade 1 placental changes. Gender: Male BIOPHYSICAL PROFILE: Breathing Movements (FBM): 2 Gross Body Movements (GBM): 2 Tone (FT): 2 Amniotic Fluid Volume (AFV): 2 TOTAL SCORE: US/Biophysical Prof W/O Non Stres IMPRESSION: Normal biophysical profile of 11/12. Electronically Signed: Andrés Maravilla MD at 15:01 EDT ,
--- OUTSIDE RECORDS SUMMARY | 2023-06-20 16:58 | XMS RPT_ITS | CCD ---
Author Name Unknown Address [address] [place] [address] Organization [facility] Care Team Providers Care Coal Digger Name Role Phone Roderick Medeiros MD Unavailable ELISEO RUCKER Primary Care Unavailable PRIYANKA LEWIS Attending Unavailable Pacer, Ms. Lesly Vieyra Attending Unavailabl e Pacer, Ms. Lesly Vieyra Attending Unavailabl e Pacer, Ms. Lesly Vieyra Attending Unavailabl e Eliseo Rucker PA-C Primary Care Provider [place] Eliseo YEBOAH Unavailable NATALIYA-NIMISHA, SUDHIR Referring Unavailable XAVIER ELISEO D Primary Care Unavailable YOGI-MORREN, SUDHIR Referring Unavailable ELISEO RUCKER D Primary Care Unavailable YOGLaura-MORREN, SUDHIR Referring Unavailable ELISEO RUCKER D Primary Care Unavailable YOGLaura-MORREN SUDHIR Attending Unavailable ELISEO RUCKER D Referring Unavailable LYNWOOD ELISEO D Primary Care Unavailable EDGAR HAYWARD DO Attending Unavailable EDGAR HAYWARD DO Primary Care Unavailable EDGAR HAYWARD DO Admitting Unavailable ELISEO RUCKER Referring Unavailable XAVIER, ELISEO Consulting Unavailable PROVIDER, UNKNOWN Consulting Unavailable XAVIER ELISEO Admitting Unavailable XAVIER, ELISEO Attending Unavailable XAVIER, ELISEO Consulting Unavailable LYNWOOD, ELISEO Primary Care Unavailable PROVIDER, UNKNOWN Consulting Unavailable BRIE, JOSEY DOBSON Primary Care Unavailable SILVIA MCMAHON Attending Unavailable ADELA ARMENDARIZ Referring Unavailab le BRIE, JOSEY DEHASHIV Primary Care Unavailable ADRIÁN TORO Attending Unavailable ADELA ARMENDARIZ Referring Unavailab le BRIE, JOSEY DEHASHIV Primary Care Unavailable ADRIÁN TORO Attending Unavailable MARIA DEL CARMEN LORA Referring Unavailable Allergies Allergy Classification Reported Allergen(s) Allergy Type Date of Onset Reaction(s) Facility (2 sources) Meperidine; Translations: [DEMEROL] Drug Allergy 2 rash [facility] Work Phone: (1 source) STINGING INSECTS; Translations: [STINGING INSECTS] allergy to substance 0 swelling [facility] Work Phone: (1 source) Meperidine Drug Allergy [facility] Repository (1 source) MORPHINE AND RELATED; Translations: [MORPHINE AND RELATED] Propensity to adverse reactions to drug (disorder) 3 [facility] Repository Problems Active Problems Problem Classification [...] Sign Value Performing Clinician Facility NEGATED: Highlighted [id number] 15:35-0500 BMI (Body Mass Index) 27.06 kg/m2 Adela Holloway [facility] Work Phone: NEGATED: Highlighted [id number] 15:35-0500 Body weight 73.48 kg Adela Holloway [facility] Work Phone: NEGATED: Highlighted [id number] 15:35-0500 Body weight 74 kg Adela Holloway [facility] Work Phone: NEGATED: Highlighted [id number] 15:35-0500 BP Diastolic 73 mm[Hg] Adela [facility] Work Phone: NEGATED: Highlighted [id number] 15:35-0500 BP Systolic 128 mm[Hg] Adela [facility] Work Phone: NEGATED: Highlighted [id number] 15:35-0500 Height 165.1 cm Adela [facility] Work Phone: NEGATED: Highlighted [id number] 15:35-0500 Height 165 cm Adela [facility] Work Phone: NEGATED: Highlighted [id number] 15:35-0500 Pulse (Heart Rate) 78 /min Adela [facility] Work Phone: Encounters Encounter Date Encounter Type Care Provider Facility Start: 06-17-2023 End: 06-17-2023 ambulatory [facility] Start: 06-10-2023 End: 06-10-2023 ambulatory [facility] Start: 04-14-2023 End: 04-14-2023 ambulatory [facility] Start: 04-08-2023 End: 04-08-2023 ambulatory [facility] Start: 07-17-2022 End: 07-17-2022 ambulatory SUDHIR BLACKMAN Facility:[facility] Start: 07-17-2022 End: 07-17-2022 Subsequent hospital visit by physician [facility] Work Phone: Radiology Procedures Date Procedure Procedure Detail Performing Clinician Start: 07-17-2022 Us soft tissue head & neck real time imge joe Blackman MD Work Phone: Start: 05-30-2022 Urinalysis EDGAR CUL ASHLEY Plan of Treatment Date Care Activity Detail Author Start: 07-26-2030 Urine microalbumin profile DTaP,Tdap,Td Vaccine (7 - Td or Tdap) [facility] Start: 12-06-2022 Influenza vaccination Influenza Vaccine (#1) [facility] Start: 06-01-2022 End: 08-01-2022 Thyrotropin [Units/volume] in Serum or Plasma TSH BLD Lab Routine Acquired hypothyroidism Expected: 06/01/2022, Expires: 08/01/2022 [facility] Work Phone: Immunizations Immunization Date Immunization Notes Care Provider Fa cili 02-02-2019 influenza virus vacc ine, unspecified formulation [facility] 2 Work Phone: [facility] Payers Date Payer Category Payer Medicaid [id number] 2018 Unknown [id number] 1998 Unknown [id number] 2.16. [id number] 1998 Unknown [id number] 2.16. [id number] 1998 Unknown [id number] 2.16. [id number] 1998 Unknown [id number] 2.16. [id number] 1998 Unknown [id number] 2.16.8 [id number] 1998 Unknown [id number] 2.16.84 [id number] 1998 Unknown [id number] 2.16. [id number] 1998 Unknown [id number] 2.16. [id number] 1998 Unknown [id number] 2.16. [id number] Social History Date Type Detail Facility Start: 05-10-2019 End: 05-10-2019 Assertion Unknown if ever smoked [place] [facility] Work Phone: Start: 2000 Sex Assigned At Female [facility] Start: 04-19-2022 History of Social function [facility] Start: 04-19-2022 Area Deprivation Index Area Deprivation Index Answer Date Recorded National Score (1-100), lower number is lower risk 57 State Score (1-10), lower number is lower risk Not on file Data from: https://www.neighborhood atlas.medicine.[facility]/ . Last address used for calculation [address] [facility] National Score (1-10 0), lower number is lower risk 57 [facility] Start: 04-16-2022 Gender identity Identifies as female gender (finding) [facility] Start: 04-16-2022 Sexual orientation Heterosexual (finding) [facility] Clinical Notes 04-19-2022 to 07-17-2022 Shawnee Richardson RDMS - 07/17/2022 7:45 AM EDTTelephone Encounter - Lety Moser - 04/22/2022 8:56 AM Luis Blackman MD - 04/19/2022 11:16 AM EST Note Date & Type Note Facility 07-17-2022 Note HNO ID: [id number] Author: Shawnee Richardson RDMS Service: ? Author Type: Orchid Worker Type: Progress Notes Filed: 07/17/2022 7:59 AM [...] Richardson RDMS July 17, 2022 7:59 AM [facility] 07-17-2022 History of Presen t illness [...] 2022 7:59 AM documented in this encounter [facility] 04-22-2022 Miscellaneous Notes Mailed visit notes to: Eliseo MEZA) Austyn Kinsey [facility] [address] [address] [employer] [facility] documented in this encounter [facility] 04-19-2022 Note HNO ID: [id number] Author: Sudhir Blackman MD Service: ? Author Type: Physician Type: Progress Notes Filed: 04/19/2022 11:57 AM Note Text: ENDO THYROID INITIAL CONSULT SERVICE DATE: 04/19/2022 SERVICE TIME: 11:17 AM VIRTUAL VISIT Patient is being evaluated today via a Virtual Visit using a HIPPA compliant platform, zoom via [employer]. It required patient-provider interaction for the medical decision making as documented below. REASON FOR CONSULT: Hyperthyroidism REQUESTING PHYSICIAN: Eliseo Mohamud) Austyn Kinsey [facility] [address] My final recommendations will be communicated back to the requesting physician by way of shared Medical record or letter to requesting physician via US mail. PRIMARY CARE PHYSICIAN: Eliseo Rucker PA-C Subjective HISTORY OF PRESENT ILLNESS: Ms. Jeffrey is a 21 year old female presenting [...] trazodone to sleep Temperature Intolerance: Cold Intolerance SPEECH COACH: occurs every month, menses lasts 2-10 days [...] DATE: April 19, 2022 TIME: 11:17 AM [facility] 04-19-2022 History of Presen t illness Narrative Images from the original note were not included. ENDO THYROID INITIAL CONSULT SERVICE DATE: 04/19/2022 SERVICE TIME: 11:17 AM VIRTUAL VISIT Patient is being evaluated today via a Virtual Visit using a HIPPA compliant platform, zoom via [employer]. It required patient-provider interaction for the medical decision making as documented below. REASON FOR CONSULT: Hyperthyroidism REQUESTING PHYSICIAN: Eliseo Rucker ([facility] [place]) [address] [facility] [address] My final recommendations will be communicated back [...] trazodone to sleep Temperature Intolerance: Cold Intolerance SPEECH COACH: occurs every month, menses lasts 2-10 days [...] TIME: 11:17 AM documented in this encounter [facility] [place] [facility] Diagnosis Acquired hypothyroidism- Primary Unspecified hypothyroidism documented in this encounter [facility] note* Diagnosis Swelling of thyroid gland- Primary Unspecified disorder of thyroid [facility] [place] [facility] Diagnosis Swelling of thyroid gland Unspecified disorder of thyroid [facility] ([facility] Diagnostic Procedure Only (Routine) - Pending Review Specialty Diagnoses / Procedures Referred By Sandy michel Referred To Contact US IMAGING Diagnoses Swelling of thyroid gland Procedures US THYROID/PARATHYROID US SOFT TISSUE HEAD & NECK REAL TIME IMGE Sudhir Kirk MD [address] [place] [address] [facility] Referral ID Status Reason Start Date Expiration Date Visits Requested Visits Authorized [id number] Pending Review Auto-Generat ed Referral 06/21/2022 07/21/2023 1 1 T [facility] Diagnostic Procedure Only (Routine) - Closed Specialty Diagnoses / Procedures Referred By Contac t Referred To Contact US IMAGING Diagnoses Swelling of thyroid gland Procedures US THYROID/PARATHYROID US SOFT TISSUE HEAD & NECK REAL TIME IMGE Sudhir Kirk MD [address] [place] [address] [place] [id number] Referral ID Status Reason Start Date Expiration Date V isits Requested Visits Authorized [id number] Closed Auto-Generate d Referral 06/21/2022 07/21/2023 1 1 [facility] Chief Complaint Chief Complaint Description Start [...] Mailed visit notes t o: Eliseo Rucker (PA-C)[address] [facility] [address] Reason Comments Radiology US Specialty Diagnoses / Procedures Referred By Contac t Referred To Contact US IMAGING Diagnoses Swelling of thyroid gland Procedures US THYROID/PARATHYROID US SOFT TISSUE HEAD & NECK REAL TIME IMGE Sudhir Kirk MD [address] [place] [address] [place] [id number] Referral ID Status Reason Start Date Expiration Date V isits Requested Visits Authorized [id number] Closed Auto-Generate d Referral 06/21/2022 07/21/2023 1 1 INFORMATION SOURCE (unrecogn ized section and content) DATE CREATED AUTHOR AUTHOR'S ORGANIZ ATION 09/07/2021 [facility] DATE CREATED AUTHOR AUTHOR'S ORGANIZ ATION 03/28/2022 [facility] DATE CREATED AUTHOR AUTHOR'S ORGANIZ ATION 07/21/2022 [facility] DATE CREATED AUTHOR AUTHOR'S ORGANIZ ATION 04/08/2023 [facility] DATE CREATED AUTHOR AUTHOR'S ORGANIZ ATION 06/18/2023 [facility] Source Comments (unrecognize d section and content) In the event this informatio n is protected by the Federal Confidentiality of Alcohol and Drug Abuse Patient Records regulations: The Federal rules restrict any use of the information to criminally investigate or prosecute any alcohol or drug abuse patient.[facility] the event this information is protected by the Federal Confidentiality of Alcohol and Drug Abuse Patient Records regulations: The Federal rules restrict any use of the information to criminally investigate or prosecute any alcohol or drug abuse patient.[facility] the event this information is protected by the Federal Confidentiality of Alcohol and Drug Abuse Patient Records regulations: The Federal rules restrict any use of the information to criminally investigate or prosecute any alcohol or drug abuse patient.[facility] the event this information is protected by the Federal Confidentiality of Alcohol and Drug Abuse Patient Records regulations: The Federal rules restrict any use of the information to criminally investigate or prosecute any alcohol or drug abuse patient.[facility] the event this information is protected by the Federal Confidentiality of Alcohol and Drug Abuse Patient Records regulations: The Federal rules restrict any use of the information to criminally investigate or prosecute any alcohol or drug abuse patient.[facility] Care Teams (unrecognized sec tion and content) Coal Digger Relationship Specialty Start Date End Date Eliseo Rucker PA-C PCP - General Family Medicine 08/03/19 Eliseo Rucker PA-C Referring Family Medicine 08/03/19 Coal Digger Relationship Specialty Start Date End Date Eliseo Ruckre PA-C PCP - General Family Medicine 08/03/19 Eliseo Rucker PA-C Referring Family Medicine 08/03/19 Coal Digger Relationship Specialty Start Date End Date Eliseo Rucker PA-C PCP - General Family Medicine 08/03/19 Eliseo Rucker PA-C Referring Family Medicine 08/03/19 Coal Digger Relationship Specialty Start Date End Date Eliseo [...] BE BASED ON THE PRIMARY CLINICAL RECORDS. [employer] [facility]. provides no warranty or guarantee of the accuracy or completeness of information in this document.
== END | disposition home or self-care (01) ==
LOC: US 12:16
PROVIDERS: PCP Family Medicine; Referring Provider Advanced Practice Midwife; Visit Provider Advanced Practice Midwife
DX: R76.0 Raised antibody titer (principal)
CPT/HCPCS: 76819

== ENCOUNTER → 2023-06-27 | Outpatient (CLI) | payer MEDICAID, SELFPAY ==
--- NOTE | 2023-06-27 12:30 | US_ITS ---
STUDY: OBSTETRICAL ULTRASOUND - BIOPHYSICAL PROFILE REASON FOR EXAM: Female, 22 years old APLS -- well being LMP: November 19, 2022. PRIOR ULTRASOUND: Comparison is made with prior study dated June 20, 2023. TECHNIQUE: Transabdominal TECHNICAL QUALITY: Adequate. FINDINGS: There is a single intrauterine fetus. The fetus is in a cephalic presentation. There is demonstrated cardiac activity with a heart rate of 147 bpm. There is a normal amniotic fluid volume. The largest amniotic fluid pocket measures 4 cm. The amniotic fluid index (IMMANUEL) is 14.3 cm. The placenta is posterior in location and is not low lying. There are Grade 0 placental changes. Age by LMP: 31 weeks, 3 days. GISELE by LMP: August 26, 2023.. BIOPHYSICAL PROFILE: Breathing Movements (FBM): 2 Gross Body Movements (GBM): 2 Tone (FT): 2 Amniotic Fluid Volume (AFV): 2 TOTAL SCORE: 8 / 8 US/Biophysical Prof W/O Non Stres IMPRESSION: Normal biophysical profile of 8/8. Electronically Signed: Norbert Hu MD at 15:20 EDT ,
== END | disposition home or self-care (01) ==
LOC: US 12:30
PROVIDERS: PCP Family Medicine; Referring Provider Advanced Practice Midwife; Visit Provider Advanced Practice Midwife
DX: R76.0 Raised antibody titer (principal)
CPT/HCPCS: 76819

== ENCOUNTER → 2023-07-04 | Outpatient (CLI) | payer MEDICAID, SELFPAY ==
--- NOTE | 2023-07-04 11:43 | US_ITS ---
STUDY: OBSTETRICAL ULTRASOUND - BIOPHYSICAL PROFILE REASON FOR EXAM: Female, 22 years old APLS LMP: November 19, 2022. PRIOR ULTRASOUND: Comparison is made with prior study dated June 27, 2023. TECHNIQUE: Transabdominal TECHNICAL QUALITY: Adequate. FINDINGS: There is a single intrauterine fetus. The fetus is in a cephalic presentation. There is demonstrated cardiac activity with a heart rate of 129 bpm. There is a normal amniotic fluid volume. The largest amniotic fluid pocket measures 5.1 cm. The amniotic fluid index (IMMANUEL) is 14.9 cm. The placenta is posterior in location and is not low lying. There are Grade 1 placental changes. Age by LMP: 32 weeks, 3 days. GISELE by LMP: The 2023. BIOPHYSICAL PROFILE: Breathing Movements (FBM): 2 Gross Body Movements (GBM): 2 Tone (FT): 2 Amniotic Fluid Volume (AFV): 2 TOTAL SCORE: US/Biophysical Prof W/O Non Stres IMPRESSION: Normal biophysical profile of 11/12. Electronically Signed: Norbert Hu MD at 12:56 EDT ,
== END | disposition home or self-care (01) ==
LOC: OPUS 11:42
PROVIDERS: PCP Family Medicine; Referring Provider Advanced Practice Midwife; Visit Provider Advanced Practice Midwife
DX: R76.0 Raised antibody titer (principal)
CPT/HCPCS: 76819

== ENCOUNTER → 2023-07-11 | Outpatient (CLI) | payer MEDICAID, SELFPAY ==
--- NOTE | 2023-07-11 12:16 | US_ITS ---
STUDY: OBSTETRICAL ULTRASOUND - BIOPHYSICAL PROFILE REASON FOR EXAM: Female, 22 years old APLS -- RAISED TITER LMP: November 19, 2022. PRIOR ULTRASOUND: Comparison is made with prior examination dated July 04, 2023. TECHNIQUE: Transabdominal TECHNICAL QUALITY: Adequate. FINDINGS: There is a single intrauterine fetus. The fetus is in a cephalic presentation. There is demonstrated cardiac activity with a heart rate of 133 bpm. There is a normal amniotic fluid volume. The largest amniotic fluid pocket measures 4.9 cm x 3.4 cm. The amniotic fluid index (IMMANUEL) is 16 cm. The placenta is posterior in location and is not low lying. There are Grade 1 placental changes. Age by LMP: 33 weeks, 3 days. GISELE by LMP: August 26, 2023. BIOPHYSICAL PROFILE: Breathing Movements (FBM): 2 Gross Body Movements (GBM): 2 Tone (FT): 2 Amniotic Fluid Volume (AFV): 2 TOTAL SCORE: US/Biophysical Prof W/O Non Stres IMPRESSION: Normal biophysical profile of 11/12.
== END | disposition home or self-care (01) ==
LOC: OPUS 12:15
PROVIDERS: PCP Family Medicine; Referring Provider Advanced Practice Midwife; Visit Provider Advanced Practice Midwife
DX: R76.0 Raised antibody titer (principal)
CPT/HCPCS: 76819

== ENCOUNTER → 2023-07-18 | Outpatient (CLI) | payer MEDICAID, SELFPAY ==
--- NOTE | 2023-07-18 11:59 | US_ITS ---
STUDY: OBSTETRICAL ULTRASOUND - BIOPHYSICAL PROFILE REASON FOR EXAM: Female, 23 years old APLS -- RAISED TITER LMP: November 19, 2022. PRIOR ULTRASOUND: Comparison is made with prior study of July 11, 2023. TECHNIQUE: Transabdominal TECHNICAL QUALITY: Adequate. FINDINGS: There is a single intrauterine fetus. The fetus is in a cephalic presentation. There is demonstrated cardiac activity with a heart rate of 155 bpm. There is a normal amniotic fluid volume. The largest amniotic fluid pocket measures 4.45 cm x 7 cm. The amniotic fluid index (IMMANUEL) is 13.63 cm. The placenta is posterior in location and is not low lying. There are Grade 1 placental changes. Age by LMP: 34 weeks, 3 days. GISELE by LMP: August 26, 2023. age by prior US: 34 weeks, 3 days. GISELE by prior US: August 26, 2023. BIOPHYSICAL PROFILE: Breathing Movements (FBM): 2 Gross Body Movements (GBM): 2 Tone (FT): 2 Amniotic Fluid Volume (AFV): 2 TOTAL SCORE: 8 / 8 US/Biophysical Prof W/O Non Stres IMPRESSION: Normal biophysical profile of 8/8. Electronically Signed: Norbert Hu MD at 10:14 EDT ,
== END | disposition home or self-care (01) ==
LOC: OPUS 11:58
PROVIDERS: PCP Family Medicine; Referring Provider Advanced Practice Midwife; Visit Provider Advanced Practice Midwife
DX: R76.0 Raised antibody titer (principal)
CPT/HCPCS: 76819

== ENCOUNTER → 2023-07-24 | Outpatient (CLI) | payer MEDICAID, SELFPAY ==
[2023-07-24 13:10] LABS: Amphetamine Urine VISTA NEGATIVE (<1000 ng/mL); Barbiturate Urine VISTA NEGATIVE (< 200 ng/mL); Benzodiazepine Urine VISTA NEGATIVE (< 200 ng/mL); Cocaine Urine VISTA NEGATIVE (< 300 ng/mL); Ecstacy Urine VISTA NEGATIVE (< 500 ng/mL); Methadone Urine VISTA NEGATIVE (< 300 ng/mL); PCP Urine VISTA NEGATIVE (< 25 ng/mL); THC Urine VISTA NEGATIVE (< 50 ng/mL); Vista UDS pH Range 6
== END | disposition home or self-care (01) ==
PROVIDERS: PCP Family Medicine; Referring Provider Obstetrics & Gynecology; Visit Provider Obstetrics & Gynecology
DX: F12.90 Cannabis use, unspecified, uncomplicated (principal)
CPT/HCPCS: 80307

== ENCOUNTER 2023-07-25 13:17 | Outpatient (CLI) | payer MEDICAID, SELFPAY ==
[2023-07-25] VITALS (41 sets, daily range): BP systolic 116–150; BP diastolic 63–89; PULSE 76–125; RESP 14–16; TEMP 36.3–36.8; O2SAT 96–100; BMI 31.9
[2023-07-25 13:56] LABS: Absolute Lymphocyte Count 1.69 X10^3/uL (0.83-4.51); Absolute Neutrophil Count 6.3 X10^3/uL (2.0-7.7); Basophil# 0.03 X10^3/uL; Basophil% 0.3 % (0-1); Eosinophil# 0.23 X10^3/uL; Eosinophils% 2.5 % (0-5); Hematocrit 38.5 % (37-47); Hemoglobin 12.6 g/dL (12.0-15.0); Lymphocyte # 1.69 X10^3/ul (0.83-4.51); Lymphocyte % 18.4 % (19-41); Mean Corp Hgb Conc 32.7 g/dL (32-36); Mean Corpuscular Volume 79.5 fL (81-99); Mean Platelet Vol. 9.7 fl (6.2-12.0); Monocyte# 0.79 X10^3/uL; Monocyte% 8.6 % (0-10); NRBC Flagged by Analyzer 0 % (0-5); Neutrophil # 6.34 X10^3/uL (2.7-7.7); Neutrophil % 69.1 % (47-70); Platelet Count 194 K/mm3 (150-450); RBC Distribution Width CV 12.5 % (11.6-14.6); RBC Distribution Width SD 35.4 fl (35.1-43.9); Red Blood Count 4.84 M/mm3 (4.2-5.4); White Blood Count 9.2 K/mm3 (4.4-11.0)
[2023-07-25] MEDS: LACTATED RINGERS 500 ML 999 ML IV (13:56)
[2023-07-25] MEDS: Betamethasone/Betamethasone 30 MG/5 ML Vial 12 MG IM (14:18)
[2023-07-25 14:22] LABS: AST(SGOT) 13 U/L (15-37); Alanine Aminotransfer ALT/SGPT 19 U/L (13-56); Creatinine, Serum 0.46 mg/dL (0.55-1.02); EST Glomerular Filtration Rate 176 mL/min (>60); Est Glom Filt Rate - Afr Amer 213 mL/min (>60); Estimated Creatinine Clearance 203.75 ml/min; Uric Acid 4.9 mg/dL (2.6-6.0)
[2023-07-25 14:43] LABS: Syphilis Antibodies Non-reactive
--- NOTE | 2023-07-25 19:00 | OB.TRI.HP_ITS ---
HPI - General HPI Narrative LYUBOV NOEL, is a 23 F at 35w3 days who presents for monitoring due to 6/10 BPP. she had 2 off for movement and breathing. she does have a reactive NST though so it is an equivocal result. she denies any vb or lof admits fm but it has been decreasing over the last few weeks. she denies anyrecent infections or other issues. Maternal Data Information GISELE Calculator Estimated Delivery Date Method Current WG Current Estimate 08/26/23 LMP (Certain) 35w 4d Other Estimates 09/01/23 Ultrasound #1 34w 5d 08/25/23 Ultrasound #2 35w 5d PFSH PFSH Medical History (Updated 07/26/23 @ 07:[address] Afia Rosario MD) Anxiety Anxiety with depression Asthma Blood clotting disorder BPD (bronchopulmonary dysplasia) follow-up encounter delivery due to maternal disorder Gestational HTN Headache Heart disease Kidney disease Marijuana use Missed depression Pre-eclampsia Preeclampsia, severe Psychiatric disorder PTSD (post-traumatic stress disorder) Smoker Supervision of high risk , antepartum Thyroid disorder Wears glasses Home Medications enoxaparin 40 mg/0.4 mL subcutaneous syringe (Lovenox) 40 mg (0.4 mL) subcut QDAY 30 days #12 mL 12/19/22 [Rx Last Taken Unknown] aspirin 81 mg tablet,delayed release 81 mg PO DAILY 01/13/23 [History Last Taken Unknown] docosahexaenoic acid 200 mg capsule ( DHA) mg PO 01/13/23 [History Last Taken Unknown] ondansetron HCl 4 mg tablet 4 mg PO Q8H #60 tabs 01/13/23 [Rx Last Taken Unknown] fluoxetine 40 mg capsule (Prozac) 10 mg PO DAILY 04/02/23 [History Last Taken Unknown] Allergy/AdvReac Type Severity Reaction Status Date / Time meperidine [From Demerol] Allergy Mild other Verified 07/25/23 13:35 Family History Grandmother Diabetes Father Hypertension A-fib Mother Hypertension Surgical History (Updated 07/25/23 @ 20:23 by Xuan Barrera) H/O dilation and curettage History of cholecystectomy History of placement of ear tubes History of surgery Hx of appendectomy Status post tonsillectomy and adenoidectomy Social History adopted: No household members: spouse and children housing: other details: trailer number of children: 2 current occupational status: unemployed pets and animals: Yes pets and animals: dog(s) history of recent travel: No sexually active: Yes Smoking Status: Former smoker alcohol intake: never substance use type: marijuana caffeine: No during the past year weight has: decreased > 10 lbs what type of physical activity do you participate in: walking frequency: daily duration: 15-30 minutes/day edna/synagogue: None seatbelt use: always do you feel safe at home: Yes additional social history: [employer] Patient is unemployed History 7 Elective abortions Hx Para 2 Spontaneous abortions 4 Hx # Term Pregnancies Ectopic pregnancies Hx # Pregnancies Multiple births # of living children 2 Past Pregnancies Del. Date Name GA/Weeks Outcome Route Bth Weight Infant Gen Labor Lgth Anesthesia Del Locatn Provider FOB Unknown 2016 Kory 41 live - full term Male 12 spinal P[place]rene Vacceriello 10/10/20 Summer 39 live - full term Female [facility] Delivery Date: Last Updated by: Susan Snider heart rate Delivery Date: 10/10/20 Last Updated by: Sharon Dugan RLS severe preeclampsia Visit Details Expected Delivery Route/Plan desires repeat and BS with Plans Covid status: [] Flu vaccine: declined Tdap vaccine: given Rhogam: [na LARC form signed: delcined movement and labor precautions reviewed. Problem list reviewed and updated with the most current plan of care details and appropriate orders placed. Relevant counseling for the gestational age provided. Continue routine care and follow up unless otherwise noted in visit notes/problem list details OB Flowsheet Initial Weight: Not Recorded Date -?-?-?-?-?-?-?-?-?-?-?-?- EGA Weight BP Urine Prot -?-?-?-?-?-?-?-?-?-?-?-?- Glucose FHR FuHt Pres Dilation -?-?-?-?-?-?-?-?-?-?-?-?- Effaced St Visit Note 01/13/23 -?-?-?-?-?-?-?-?-?-?-?-?- 7w 6d 148 lb 120/86 -?-?-?-?-?-?-?-?-?-?-?-?- 160 -?-?-?-?-?-?-?-?-?-?-?-?- JV- CRL is off b y a week from LMP, pt has irregular periods. Desires NIPT. will return in one week for heart beat check up. will give box kit then 01/23/23 -?-?-?-?-?-?-?-?-?-?-?-?- 9w 2d 152 lb 2 oz 121/75 Nega tive -?-?-?-?-?-?-?-?-?-?-?-?- Negative 170 -?-?-?-?-?-?-?-?-?-?-?-?- SM- no vb crampi ng 02/05/23 -?-?-?-?-?-?-?-?-?-?-?-?- 11w 1d 158 lb 2 oz 130/74 Nega tive -?-?-?-?-?-?-?-?-?-?-?-?- Negative 160 -?-?-?-?-?-?-?-?-?-?-?-?- JV- no lof, vagi nal bleeding, or cramping. pictures are clearer today and GISELE is more consistent with LMP 03/05/23 -?-?-?-?-?-?-?-?-?-?-?-?- 15w 1d 162 lb 6 oz 132/83 Nega tive -?-?-?-?-?-?-?-?-?-?-?-?- Negative 160 -?-?-?-?-?-?-?-?-?-?-?-?- MH-NO VB. Feels well. Brief US to confirm FHT. 04/02/23 -?-?-?-?-?-?-?-?-?-?-?-?- 19w 1d 173 lb 2 oz 119/77 Nega tive -?-?-?-?-?-?-?-?-?-?-?-?- Negative 151 -?-?-?-?-?-?-?-?-?-?-?-?- JV- no lof, vagi nal bleeding, or cramping. anatomy scan on 04/1404/30/23 -?-?-?-?-?-?-?-?-?-?-?-?- 23w 1d 178 lb 131/77 Negative -?-?-?-?-?-?-?-?-?-?-?-?- Negative 146 -?-?-?-?-?-?-?-?-?-?-?-?- JV- pt to start twice weekly bpps at 28 weeks for apl. no lof, vaginal bleeding, or dec fm. 05/29/23 -?-?-?-?-?-?-?-?-?-?-?-?- 27w 2d 183 lb 144/86 136/82 Negative -?-?-?-?-?-?-?-?-?-?-?-?- Negative 145 30 -?-?-?-?-?-?-?-?-?-?-?-?- KW-no vb/lof/ctx . good fm. Desires R CS+BTO with SM. Recommended to schedule rest appts with her if possible. BPP orders placed for next 2 weeks. Discussed Tdap next visit and taking BPs at home. no LOVE/dizziness/BV. KW-no vb/lof/ctx. good fm. D esires R CS+BTO with SM. Recommended to schedule rest appts with her if possible. BPP orders placed for next 2 weeks. Discussed Tdap next visit and taking BPs at home. no LOVE/dizziness/BV. CMP/TSH/Free T4 ordered. 06/12/23 -?-?-?-?-?-?-?-?-?-?-?-?- 29w 2d 186 lb 4 oz 131/80 Nega tive -?-?-?-?-?-?-?-?-?-?-?-?- Negative 130 -?-?-?-?-?-?-?-?-?-?-?-?- KW- no vb/lof/ct x. good fm. RCS scheduled for 08/18 with SM. KW- no vb/lof/ctx. good fm. RCS scheduled for 08/18 with SM. at 32 weeks start 2x weekly NSTs. growth reviewed KW- no vb/lof/ctx. good fm. RCS scheduled for 08/18 with SM. at 32 weeks start 2x weekly BPPs- scheduled. growth reviewed title 19 done 06/16/23 -?-?-?-?-?-?-?-?-?-?-?-?- 29w 6d 188 lb 121/86 Negative -?-?-?-?-?-?-?-?-?-?-?-?- Negative 130 -?-?-?-?-?-?-?-?-?-?-?-?- SM- no vb lof go od fm no regular ctx 06/26/23 -?-?-?-?-?-?-?-?-?-?-?-?- 31w 2d 188 lb 112/80 112/80 Negative -?-?-?-?-?-?-?-?-?-?-?-?- Negative 135 31 -?-?-?-?-?-?-?-?-?-?-?-?- Sm- no vb lof go od fm no regular ctx 07/01/23 -?-?-?-?-?-?-?-?-?-?-?-?- 32w 0d 186 lb 127/77 Negative -?-?-?-?-?-?-?-?-?-?-?-?- Negative 130 32 -?-?-?-?-?-?-?-?-?-?-?-?- SM- no vb lof go od fm n oregula ctx bpps started 07/10/23 -?-?-?-?-?-?-?-?-?-?-?-?- 33w 2d 190 lb 111/75 Negative -?-?-?-?-?-?-?-?-?-?-?-?- Negative 135 33 -?-?-?-?-?-?-?-?-?-?-?-?- SM- no vb lof go od fm nor egular ctx 07/24/23 -?-?-?-?-?-?-?-?-?-?-?-?- 35w 2d 191 lb 124/81 -?-?-?-?-?-?-?-?-?-?-?-?- 140 35 -?-?-?-?-?-?-?-?-?-?-?-?- SM- no vb lof go od fm no regular ctx mood stable ROS Constitutional Constitutional: Reports systems reviewed and no addt'l complaints, except as documented Eyes Eyes: Denies change in vision ENT HEENT: Reports systems reviewed and no addt'l complaints, except as documented; Denies headache(s) Cardiovascular Cardiovascular: Reports systems reviewed and no addt'l complaints, except as documented; Denies chest pain or dyspnea Respiratory/Chest Respiratory/Chest: Reports systems reviewed and no addt'l complaints, except as documented Gastrointestinal Gastrointestinal: Reports systems reviewed and no addt'l complaints, except as documented; Denies abdominal pain Genitourinary Genitourinary: Reports systems reviewed and no addt'l complaints, except as documented, contractions Details: present (irregular) and movement Details: present; Denies dysuria or genital lesions Musculoskeletal Musculoskeletal: Reports systems reviewed and no addt'l complaints, except as documented Neurologic Neurologic: Reports systems reviewed and no addt'l complaints, except as documented Endocrine Endocrinology: Reports systems reviewed and no addt'l complaints, except as documented Physical Exam Const alert, oriented x3, no apparent distress and healthy appearing HEENT normocephalic and moist oral mucous membranes Head and Scalp: atraumatic Neck full ROM, no lymphadenopathy, supple and thyroid normal General: trachea midline Lymph Lymphatic: no lymphadenopathy noted Chest inspection of chest normal Resp normal respiratory effort Cardio regular rate GI normal to inspection, nondistended, normoactive bowel sounds, soft to palpation and non-tender Inspection: gravid external exam normal Manual OB Exam: estimated gestational size appropriate, presentation cephalic, dilated, effaced and station Extremity normal to inspection General Extremity: Negative for edema Skin no rashes or lesions noted Neuro no focal motor deficits and deep tendon reflexes 2+ bilaterally Motor Exam: strength 5/5 throughout and clonus absent Psych mental status grossly normal NST FHR Rate Baby A Baseline: 130 Variability:: Moderate Accelerations:: 15 x 15 Decelerations:: None NST Reactive:: Yes FHR Category:: Category I Uterine Activity:: irregular Assessment & Plan (1) Non-reassuring status: COMMENT: admit for extended monitoring and repeat BPP tomorrow (2) Antiphospholipid antibody positive: COMMENT: Currently on Lovenox and low dose ASA mfm now recommending twice weekly testing. has twice weekly BPPs scheduled. (3) Testing for genetic disease carrier status: COMMENT: Positive for polycystic kidney disease, autosomal recessive. carrier testing negative (4) History of severe pre-eclampsia: COMMENT: Pre-e labs ordered at [facility] (5) Abnormal TSH: COMMENT: nl on repeat (6) History of genetic disorder: COMMENT: history trisomy 15 with previous miscarriage. (7) History of delivery: COMMENT: x2 plan RLTCS, scheduled for 08/18 with SM @ 7:15 (8) Smoker: COMMENT: vaping encouraged cessation (9) Anxiety with depression: COMMENT: Currently taking Prozac (10) Marijuana use: COMMENT: Tox screen obtained at [facility] was positive. repeat screen at random in if appropriate (11) Supervision of high risk , antepartum: COMMENT: Yanira BETHEA, GISELE 08/26/23, Summer Woodward Spouse Santiago (12) : QUALIFIERS: Weeks of gestation: 35 weeks Qualified Code(s): Z3A.35 - 35 weeks gestation of COMMENT: LR NIPT carrier screen drawn in past. PLAN: Plan admit for extended monitoring, repeat BPP tomorrow. Creww administration now.
[2023-07-25] MEDS: Acetaminophen 500 MG Tablet 1000 MG PO (19:38)
[2023-07-25 21:23] LABS: Protein, Urine (Random) < 6.0 mg/dL (<11.9)
[2023-07-26 04:06] VITALS: BP 130/72; PULSE 97
[2023-07-26 04:07] VITALS: PULSE 87; RESP 16; TEMP 36.2; O2SAT 99
--- NOTE | 2023-07-26 07:13 | US_ITS ---
INDICATION: Low BPP yesterday EXAMINATION: Ultrasound US Biophysical Profile W/O Nonst TECHNIQUE: Transabdominal pelvic ultrasound was performed. COMPARISON: July 25, 2023 FINDINGS: INTRAUTERINE GESTATION(s): Single. HEART MOTION is 153 bpm. AMNIOTIC FLUID INDEX (IMMANUEL): 12.84 BIOPHYSICAL PROFILE (BPP): 11/12 -- Breathin/2. -- Movement: 2/2. -- Tone: 2/2. --IMMANUEL: 2/2. PRESENTATION: Cephalic PLACENTA: Posterior. US/Biophysical Prof W/O Non Stres IMPRESSION: Single live intrauterine with a biophysical profile of 11/12. Electronically Signed: Cherie Rocha MD at 9:00 EDT ,
[2023-07-26 08:04] VITALS: BP 129/71; PULSE 101; RESP 16; TEMP 36.6; O2SAT 97
--- NOTE | 2023-07-26 08:12 | OB.TRI.HP_ITS ---
HPI - General HPI Narrative LYUBOV NOEL, is a 23 F monitored overnight no vb lof admits good fm no regular ctx n odcels overnight Maternal Data Information GISELE Calculator Estimated Delivery Date Method Current WG Current Estimate 08/26/23 LMP (Certain) 35w 4d Other Estimates 09/01/23 Ultrasound #1 34w 5d 08/25/23 Ultrasound #2 35w 5d PFSH PFSH Medical History (Updated 07/26/23 @ 08:[address] Afia Rosario MD) Anxiety Anxiety with depression Asthma Blood clotting disorder BPD (bronchopulmonary dysplasia) follow-up encounter delivery due to maternal disorder Gestational HTN Headache Heart disease Kidney disease Marijuana use Missed depression Pre-eclampsia Preeclampsia, severe Psychiatric disorder PTSD (post-traumatic stress disorder) Smoker Supervision of high risk , antepartum Thyroid disorder Wears glasses Home Medications enoxaparin 40 mg/0.4 mL subcutaneous syringe (Lovenox) 40 mg (0.4 mL) subcut QDAY 30 days #12 mL 12/19/22 [Rx Last Taken Unknown] aspirin 81 mg tablet,delayed release 81 mg PO DAILY 01/13/23 [History Last Taken Unknown] docosahexaenoic acid 200 mg capsule ( DHA) mg PO 01/13/23 [History Last Taken Unknown] ondansetron HCl 4 mg tablet 4 mg PO Q8H #60 tabs 01/13/23 [Rx Last Taken Unknown] fluoxetine 40 mg capsule (Prozac) 10 mg PO DAILY 04/02/23 [History Last Taken Unknown] Allergy/AdvReac Type Severity Reaction Status Date / Time meperidine [From Demerol] Allergy Mild other Verified 07/25/23 13:35 Family History Grandmother Diabetes Father Hypertension A-fib Mother Hypertension Surgical History (Updated 07/25/23 @ 20:23 by Xuan Barrera) H/O dilation and curettage History of cholecystectomy History of placement of ear tubes History of surgery Hx of appendectomy Status post tonsillectomy and adenoidectomy Social History adopted: No household members: spouse and children housing: other details: trailer number of children: 2 current occupational status: unemployed pets and animals: Yes pets and animals: dog(s) history of recent travel: No sexually active: Yes Smoking Status: Former smoker alcohol intake: never substance use type: marijuana caffeine: No during the past year weight has: decreased > 10 lbs what type of physical activity do you participate in: walking frequency: daily duration: 15-30 minutes/day edna/rastafari: None seatbelt use: always do you feel safe at home: Yes additional social history: [email or web address] Patient is unemployed History 7 Elective abortions Hx Para 2 Spontaneous abortions 4 Hx # Term Pregnancies Ectopic pregnancies Hx # Pregnancies Multiple births # of living children 2 Past Pregnancies Del. Date Name GA/Weeks Outcome Route Bth Weight Infant Gen Labor Lgth Anesthesia Del Locatn Provider FOB Unknown 2016 Kory 41 live - full term Male 12 spinal P[place] Vacceriello 10/10/20 Summer 39 live - full term Female [facility] Delivery Date: Last Updated by: Susan Snider heart rate Delivery Date: 10/10/20 Last Updated by: Sharon Dugan RLTCS severe preeclampsia Visit Details Expected Delivery Route/Plan desires repeat and BS with SM Plans Covid status: [] Flu vaccine: declined Tdap vaccine: given Rhogam: [na LARC form signed: delcined movement and labor precautions reviewed. Problem list reviewed and updated with the most current plan of care details and appropriate orders placed. Relevant counseling for the gestational age provided. Continue routine care and follow up unless otherwise noted in visit notes/problem list details OB Flowsheet Initial Weight: Not Recorded Date -?-?-?-?-?-?-?-?-?-?-?-?- EGA Weight BP Urine Prot -?-?-?-?-?-?-?-?-?-?-?-?- Glucose FHR FuHt Pres Dilation -?-?-?-?-?-?-?-?-?-?-?-?- Effaced St Visit Note 01/13/23 -?-?-?-?-?-?-?-?-?-?-?-?- 7w 6d 148 lb 120/86 -?-?-?-?-?-?-?-?-?-?-?-?- 160 -?-?-?-?-?-?-?-?-?-?-?-?- JV- CRL is off b y a week from LMP, pt has irregular periods. Desires NIPT. will return in one week for heart beat check up. will give box kit then 01/23/23 -?-?-?-?-?-?-?-?-?-?-?-?- 9w 2d 152 lb 2 oz 121/75 Nega tive -?-?-?-?-?-?-?-?-?-?-?-?- Negative 170 -?-?-?-?-?-?-?-?-?-?-?-?- SM- no vb crampi ng 02/05/23 -?-?-?-?-?-?-?-?-?-?-?-?- 11w 1d 158 lb 2 oz 130/74 Nega tive -?-?-?-?-?-?-?-?-?-?-?-?- Negative 160 -?-?-?-?-?-?-?-?-?-?-?-?- JV- no lof, vagi nal bleeding, or cramping. pictures are clearer today and GISELE is more consistent with LMP 03/05/23 -?-?-?-?-?-?-?-?-?-?-?-?- 15w 1d 162 lb 6 oz 132/83 Nega tive -?-?-?-?-?-?-?-?-?-?-?-?- Negative 160 -?-?-?-?-?-?-?-?-?-?-?-?- MH-NO VB. Feels well. Brief US to confirm FHT. 04/02/23 -?-?-?-?-?-?-?-?-?-?-?-?- 19w 1d 173 lb 2 oz 119/77 Nega tive -?-?-?-?-?-?-?-?-?-?-?-?- Negative 151 -?-?-?-?-?-?-?-?-?-?-?-?- JV- no lof, vagi nal bleeding, or cramping. anatomy scan on 04/1404/30/23 -?-?-?-?-?-?-?-?-?-?-?-?- 23w 1d 178 lb 131/77 Negative -?-?-?-?-?-?-?-?-?-?-?-?- Negative 146 -?--?-?-?-?-?-?-?-?-?-?-?- JV- pt to start twice weekly bpps at 28 weeks for apl. no lof, vaginal bleeding, or dec fm. 05/29/23 -?-?-?-?-?-?-?-?-?-?-?-?- 27w 2d 183 lb 144/86 136/82 Negative -?-?-?-?-?-?-?-?-?-?-?-?- Negative 145 30 -?-?-?-?-?-?-?-?-?-?-?-?- KW-no vb/lof/ctx . good fm. Desires R CS+BTO with SM. Recommended to schedule rest appts with her if possible. BPP orders placed for next 2 weeks. Discussed Tdap next visit and taking BPs at home. no LOVE/dizziness/BV. KW-no vb/lof/ctx. good fm. D esires R CS+BTO with SM. Recommended to schedule rest appts with her if possible. BPP orders placed for next 2 weeks. Discussed Tdap next visit and taking BPs at home. no LOVE/dizziness/BV. CMP/TSH/Free T4 ordered. 06/12/23 -?-?-?-?-?-?-?-?-?-?-?-?- 29w 2d 186 lb 4 oz 131/80 Nega tive -?-?-?-?-?-?-?-?-?-?-?-?- Negative 130 -?-?-?-?-?-?-?-?-?-?-?-?- KW- no vb/lof/ct x. good fm. RCS scheduled for 08/18 with SM. KW- no vb/lof/ctx. good fm. RCS scheduled for 08/18 with SM. at 32 weeks start 2x weekly NSTs. growth reviewed KW- no vb/lof/ctx. good fm. RCS scheduled for 08/18 with SM. at 32 weeks start 2x weekly BPPs- scheduled. growth reviewed title 19 done 06/16/23 -?-?-?-?-?-?-?-?-?-?-?-?- 29w 6d 188 lb 121/86 Negative -?-?-?-?-?-?-?-?-?-?-?-?- Negative 130 -?-?-?-?-?-?-?-?-?-?-?-?- SM- no vb lof go od fm no regular ctx 06/26/23 -?-?-?-?-?-?-?-?--?-?-?-?- 31w 2d 188 lb 112/80 112/80 Negative -?-?-?-?-?-?-?-?-?-?-?-?- Negative 135 31 -?-?-?-?-?-?-?-?-?-?-?-?- Sm- no vb lof go od fm no regular ctx 07/01/23 -?-?-?-?-?-?-?-?-?-?-?-?- 32w 0d 186 lb 127/77 Negative -?-?-?-?-?-?-?-?-?-?-?-?- Negative 130 32 -?-?-?-?-?-?-?-?--?-?-?-?- SM- no vb lof go od fm n oregula ctx bpps started 07/10/23 -?-?-?-?-?-?-?-?-?-?-?-?- 33w 2d 190 lb 111/75 Negative -?-?-?-?-?-?-?-?-?-?-?-?- Negative 135 33 -?-?-?-?-?-?-?-?-?-?-?-?- SM- no vb lof go od fm nor egular ctx 07/24/23 -?-?-?-?-?-?-?-?-?-?-?-?- 35w 2d 191 lb 124/81 -?-?-?-?-?-?-?-?-?-?-?-?- 140 35 -?-?-?-?-?-?-?-?-?-?-?-?- SM- no vb lof go od fm no regular ctx mood stable ROS Constitutional Constitutional: Reports systems reviewed and no addt'l complaints, except as documented and as per HPI ENT HEENT: Reports systems reviewed and no addt'l complaints, except as documented Cardiovascular Cardiovascular: Reports systems reviewed and no addt'l complaints, except as documented Respiratory/Chest Respiratory/Chest: Reports systems reviewed and no addt'l complaints, except as documented Gastrointestinal Gastrointestinal: Reports as per HPI Genitourinary Genitourinary: Reports as per HPI Musculoskeletal Musculoskeletal: Reports systems reviewed and no addt'l complaints, except as documented Integumentary Integumentary: Reports systems reviewed and no addt'l complaints, except as documented Neurologic Neurologic: Reports systems reviewed and no addt'l complaints, except as documented Physical Exam Const alert, oriented x3 and no apparent distress HEENT Head and Scalp: normocephalic and atraumatic Neck full ROM and no lymphadenopathy Chest inspection of chest normal Resp normal respiratory effort GI GI Narrative: gravid, abdomen nontender, AGA Manual OB Exam: dilated, effaced and station NST FHR Rate Baby A Baseline: 140 Variability:: Moderate Accelerations:: 15 x 15 Decelerations:: None NST Reactive:: Yes FHR Category:: Category I Uterine Activity:: no regular Assessment & Plan (1) Non-reassuring status: COMMENT: reassuring status repeat bpp 8/8 repeat celestone to be given and dc home (2) Sterilization: COMMENT: title 19 signed. (3) Abnormal glucose affecting : COMMENT: Passed 3 hour (4) Antiphospholipid antibody positive: COMMENT: Currently on Lovenox and low dose ASA mfm now recommending twice weekly testing. has twice weekly BPPs scheduled. (5) Testing for genetic disease carrier status: COMMENT: Positive for polycystic kidney disease, autosomal recessive. carrier testing negative (6) History of severe pre-eclampsia: COMMENT: Pre-e labs ordered at [facility] (7) Abnormal TSH: COMMENT: nl on repeat (8) History of genetic disorder: COMMENT: history trisomy 15 with previous miscarriage. (9) History of delivery: COMMENT: x2 plan RLTCS, scheduled for 08/18 with SM @ 7:15 (10) Smoker: COMMENT: vaping encouraged cessation (11) Anxiety with depression: COMMENT: Currently taking Prozac (12) Marijuana use: COMMENT: Tox screen obtained at [facility] was positive. repeat screen at random in if appropriate (13) Supervision of high risk , antepartum: COMMENT: NEEMA, , GISELE 08/26/23, Deshaun Horn, Summer Spouse Santiago (14) : QUALIFIERS: Weeks of gestation: 35 weeks Qualified Code(s): Z3A.35 - 35 weeks gestation of COMMENT: LR NIPT carrier screen drawn in past. PLAN: Plan repeat bpp reassuring dc home after celestone Charges/Coding Multi Select Codes Visit Charges Observation E&M Codin Observation care discharge Urinary/Genital Urinary/Genital CPT Codes: 57995-96 non-stress test Interp
[2023-07-26 11:22] VITALS: RESP 16; TEMP 36.6
[2023-07-26 11:23] VITALS: BP 133/71; PULSE 112; O2SAT 99
[2023-07-26] MEDS: Enoxaparin 40 MG/0.4 ML Syringe SC (11:27)
[2023-07-26] MEDS: Betamethasone/Betamethasone 30 MG/5 ML Vial 12 MG IM (11:27)
== END 2023-07-26 12:05 | disposition home or self-care (01) ==
LOC: WPOUT 13:22 → WP 13:23
PROVIDERS: Advanced Practice Midwife; PCP Family Medicine; Referring Provider Obstetrics & Gynecology; Visit Provider Obstetrics & Gynecology
DX: O99.810 Abnormal glucose complicating pregnancy (principal); Z3A.35 35 weeks gestation of pregnancy; O99.113 Other diseases of the blood and blood-forming organs and certain disorders involving the immune mechanism complicating pregnancy, third trimester; D68.61 Antiphospholipid syndrome; Z79.01 Long term (current) use of anticoagulants; O99.891 Other specified diseases and conditions complicating pregnancy; Q61.3 Polycystic kidney, unspecified; Z87.59 Personal history of other complications of pregnancy, childbirth and the puerperium; R94.6 Abnormal results of thyroid function studies; Q99.9 Chromosomal abnormality, unspecified; O99.333 Smoking (tobacco) complicating pregnancy, third trimester; F17.290 Nicotine dependence, other tobacco product, uncomplicated; O99.343 Other mental disorders complicating pregnancy, third trimester; F41.8 Other specified anxiety disorders; O99.323 Drug use complicating pregnancy, third trimester; F12.90 Cannabis use, unspecified, uncomplicated; Z90.49 Acquired absence of other specified parts of digestive tract
CPT/HCPCS: 96372 ×2; 59025; 59050 ×2; 82565; 82570; 84156; 84450; 84460; 84550; 85025; 86780; 86850; 86900; 86901; G0378 ×2; J0702 ×2; J7120; 99221

== ENCOUNTER → 2023-07-25 | Outpatient (CLI) | payer MEDICAID, SELFPAY ==
--- NOTE | 2023-07-25 12:28 | US_ITS ---
STUDY: OBSTETRICAL ULTRASOUND - BIOPHYSICAL PROFILE REASON FOR EXAM: Female, 23 years old raised titer LMP: November 19, 2022. PRIOR ULTRASOUND: Comparison is made with prior study of July 18, 2023. TECHNIQUE: Transabdominal TECHNICAL QUALITY: Adequate. FINDINGS: There is a single intrauterine fetus. The fetus is in a cephalic presentation. There is demonstrated cardiac activity with a heart rate of 136 bpm. There is a normal amniotic fluid volume. The largest amniotic fluid pocket measures 4.9 cm x 3.1 cm. The amniotic fluid index (IMMANUEL) is 13.38 cm. The placenta is posterior in location and is not low lying. There are Grade 1 placental changes. Age by LMP: 35 weeks, 3 days. GISELE by LMP: August 26, 2023. BIOPHYSICAL PROFILE: Breathing Movements (FBM): 0 Gross Body Movements (GBM): 2 Tone (FT): 0 Amniotic Fluid Volume (AFV): 2 TOTAL SCORE: / 8 US/Biophysical Prof W/O Non Stres IMPRESSION: biophysical profile of 4/8. The referring clinician was advised. Electronically Signed: Norbert Hu MD at 14:18 EDT ,
== END | disposition home or self-care (01) ==
PROVIDERS: PCP Family Medicine; Referring Provider Advanced Practice Midwife; Visit Provider Advanced Practice Midwife
DX: R76.0 Raised antibody titer (principal); O99.810 Abnormal glucose complicating pregnancy; Z3A.35 35 weeks gestation of pregnancy; O99.113 Other diseases of the blood and blood-forming organs and certain disorders involving the immune mechanism complicating pregnancy, third trimester; Z79.01 Long term (current) use of anticoagulants; O99.891 Other specified diseases and conditions complicating pregnancy; Q61.3 Polycystic kidney, unspecified; Z87.59 Personal history of other complications of pregnancy, childbirth and the puerperium; R94.6 Abnormal results of thyroid function studies; Q99.9 Chromosomal abnormality, unspecified; O99.333 Smoking (tobacco) complicating pregnancy, third trimester; F17.290 Nicotine dependence, other tobacco product, uncomplicated; O99.343 Other mental disorders complicating pregnancy, third trimester; F41.8 Other specified anxiety disorders; O99.323 Drug use complicating pregnancy, third trimester; F12.90 Cannabis use, unspecified, uncomplicated; Z90.49 Acquired absence of other specified parts of digestive tract
CPT/HCPCS: 59025; 59050; 76819; 82565; 82570; 84156; 84450; 84460; 84550; 85025; 86780; 86850; 86900; 86901; 96372; 99221; J7120; G0378; J0702

== ENCOUNTER 2023-07-27 17:15 | Outpatient (CLI) | payer MEDICAID, SELFPAY ==
[2023-07-27 17:31] VITALS: PULSE 106; O2SAT 99
[2023-07-27 17:34] VITALS: BP 148/83; PULSE 105; PULSE 106; RESP 14; TEMP 37.2; O2SAT 99
--- NOTE | 2023-07-27 17:41 | US_ITS ---
STUDY: OBSTETRICAL ULTRASOUND - BIOPHYSICAL PROFILE REASON FOR EXAM: Female, 23 years old decrease movement LMP: 11/19/2022 PRIOR ULTRASOUND: 07/26/2023 TECHNIQUE: Transabdominal TECHNICAL QUALITY: Adequate. FINDINGS: There is a single intrauterine fetus. The fetus is in a cephalic presentation. There is demonstrated cardiac activity with a heart rate of 137 bpm. There is a normal amniotic fluid volume. The largest amniotic fluid pocket measures 7.0 cm. The amniotic fluid index (IMMANUEL) is 11.5 cm. The placenta is posterior in location and is not low lying. There are Grade 1 placental changes. Age by LMP: 35 weeks, 5 days. GISELE by LMP: 08/26/2023. BIOPHYSICAL PROFILE: Breathing Movements (FBM): 2 Gross Body Movements (GBM): 2 Tone (FT): 2 Amniotic Fluid Volume (AFV): 2 TOTAL SCORE: US/Biophysical Prof W/O Non Stres IMPRESSION: Normal biophysical profile of 11/12. Electronically Signed: Angel Vogt MD at 20:52 EDT ,
[2023-07-27 17:45] VITALS: BP 132/65; PULSE 99
[2023-07-27 17:54] VITALS: BP 125/66; PULSE 99
[2023-07-27 18:06] VITALS: BP 112/60; PULSE 96
[2023-07-27 19:17] VITALS: BP 135/74; PULSE 90
--- NOTE | 2023-10-05 07:09 | OB.TRI.PN ---
Progress Notes Progress Note: Patient presents for triage evaluation secondary to decresaed movement FHT: 135 Moderate variability reactive no decelerations category I tracing [place]: no regular Contractions Assessment and plan: decresaed movement Reactive NST, reassuring maternal and status patient discharged to home to follow-up as scheduled. See problem list details for additional plan information. Charges/Coding Procedures Urinary/Genital 52xxx-59xxx: 61854-11 non-stress test Interp
== END 2023-07-27 20:55 | disposition home or self-care (01) ==
LOC: WPOUT 17:23 → WP 17:24
PROVIDERS: PCP Family Medicine; Visit Provider Advanced Practice Midwife
DX: O36.8190 Decreased fetal movements, unspecified trimester, not applicable or unspecified (principal); Z3A.00 Weeks of gestation of pregnancy not specified
CPT/HCPCS: 59025; 59050; 76819; 99221; G0378

== ENCOUNTER → 2023-08-01 | Outpatient (CLI) | payer MEDICAID, SELFPAY ==
--- NOTE | 2023-08-01 12:14 | US_ITS ---
STUDY: OBSTETRICAL ULTRASOUND - BIOPHYSICAL PROFILE REASON FOR EXAM: Female, 23 years old APLS -- RAISED TITER LMP: November 19, 2022. PRIOR ULTRASOUND: Comparison is made with prior study July 27, 2023. TECHNIQUE: Transabdominal TECHNICAL QUALITY: Adequate. FINDINGS: There is a single intrauterine fetus. The fetus is in a cephalic presentation. There is demonstrated cardiac activity with a heart rate of 169 bpm. There is a normal amniotic fluid volume. The largest amniotic fluid pocket measures 4.2 cm x 5.5 cm. The amniotic fluid index (IMMANUEL) is 13.8 cm. The placenta is fundal in location. There are Grade 1 placental changes. Age by LMP: 36 weeks, 3 days. GISELE by LMP: August 26, 2023. BIOPHYSICAL PROFILE: Breathing Movements (FBM): 2 Gross Body Movements (GBM): 2 Tone (FT): 2 Amniotic Fluid Volume (AFV): 2 TOTAL SCORE: 8 / 8 US/Biophysical Prof W/O Non Stres IMPRESSION: Normal biophysical profile of 11/12. Electronically Signed: Norbert Hu MD at 13:55 EDT ,
== END | disposition home or self-care (01) ==
PROVIDERS: PCP Family Medicine; Referring Provider Advanced Practice Midwife; Visit Provider Advanced Practice Midwife
DX: R76.0 Raised antibody titer (principal)
CPT/HCPCS: 76819

== ENCOUNTER 2023-08-05 05:25 | Inpatient (IN) | payer MEDICAID, SELFPAY ==
[2023-08-05] VITALS (17 sets, daily range): BP systolic 92–150; BP diastolic 61–96; PULSE 72–108; RESP 15–18; TEMP 36–36.6; O2SAT 95–99; BMI 32.1
[2023-08-05 05:48] LABS: Absolute Lymphocyte Count 2.64 X10^3/uL (0.83-4.51); Absolute Neutrophil Count 9.7 X10^3/uL (2.0-7.7); Basophil# 0.04 X10^3/uL; Basophil% 0.3 % (0-1); Eosinophil# 0.16 X10^3/uL; Eosinophils% 1.2 % (0-5); Hematocrit 33.4 % (37-47); Lymphocyte # 2.64 X10^3/ul (0.83-4.51); Mean Corp Hgb Conc 32.9 g/dL (32-36); Mean Corpuscular Hgb 25.6 pg (27.0-32.0); Mean Corpuscular Volume 77.9 fL (81-99); Mean Platelet Vol. 9.3 fl (6.2-12.0); Monocyte# 1.11 X10^3/uL; NRBC Flagged by Analyzer 0 % (0-5); Neutrophil # 9.67 X10^3/uL (2.7-7.7); Neutrophil % 69.8 % (47-70); Platelet Count 208 K/mm3 (150-450); RBC Distribution Width CV 12.6 % (11.6-14.6); Red Blood Count 4.29 M/mm3 (4.2-5.4); White Blood Count 13.9 K/mm3 (4.4-11.0)
[2023-08-05] MEDS: Acetaminophen 500 MG Tablet 1000 MG PO ×4 (05:56→23:58)
[2023-08-05] MEDS: Lactated Ringers 1,000 ML 999 ML IV (05:57)
[2023-08-05] MEDS: Sodium Citrate/Citric Acid 30 ML UDC PO (06:44)
[2023-08-05] MEDS: Lactated Ringers 1,000 ML 150 ML IV (06:44)
[2023-08-05 07:11] LABS: Amphetamine Urine VISTA NEGATIVE (<1000 ng/mL); Barbiturate Urine VISTA NEGATIVE (< 200 ng/mL); Benzodiazepine Urine VISTA NEGATIVE (< 200 ng/mL); Cocaine Urine VISTA NEGATIVE (< 300 ng/mL); Ecstacy Urine VISTA NEGATIVE (< 500 ng/mL); Methadone Urine VISTA NEGATIVE (< 300 ng/mL); PCP Urine VISTA NEGATIVE (< 25 ng/mL); THC Urine VISTA NEGATIVE (< 50 ng/mL); Vista UDS pH Range 5
--- NOTE | 2023-08-05 07:14 | HP.PCM.OB_ITS ---
HPI - General General Date of Admission: 08/05/23 HPI Narrative LYUBOV NOEL, is a 23 F who presents for RLTCS. she has a history of recurrent miscarriage and APL syndrome, persistent decreased movement. decision made to proceed with RLTCS. decision also for sterilization. Maternal Data Information GISELE Calculator Estimated Delivery Date Method Current WG Current Estimate 08/26/23 LMP (Certain) 37w 0d Other Estimates 09/01/23 Ultrasound #1 36w 1d 08/25/23 Ultrasound #2 37w 1d PFSH PFSH Medical History (Updated 08/05/23 @ 05:38 by Pam Bolanos) Anxiety Anxiety with depression Asthma Blood clotting disorder delivery due to maternal disorder Gestational HTN Headache Heart disease Kidney disease Marijuana use Missed depression Pre-eclampsia Preeclampsia, severe Psychiatric disorder PTSD (post-traumatic stress disorder) Smoker Supervision of high risk , antepartum Thyroid disorder Wears glasses Home Medications aspirin 81 mg tablet,delayed release 81 mg PO DAILY 01/13/23 [History Last Taken 07/25/23] docosahexaenoic acid 200 mg capsule ( DHA) mg PO 01/13/23 [History Last Taken 07/25/23] ondansetron HCl 4 mg tablet 4 mg PO Q8H #60 tabs 01/13/23 [Rx Last Taken Unknown] fluoxetine 40 mg capsule (Prozac) 10 mg PO DAILY 04/02/23 [History Last Taken Unknown] Allergy/AdvReac Type Severity Reaction Status Date / Time meperidine [From Demerol] Allergy Mild other Verified 07/28/23 09:05 Family History Grandmother Diabetes Father Hypertension A-fib Mother Hypertension Surgical History H/O dilation and curettage History of cholecystectomy History of placement of ear tubes History of surgery Hx of appendectomy Status post tonsillectomy and adenoidectomy Social History adopted: No household members: spouse and children housing: other details: trailer number of children: 2 current occupational status: unemployed pets and animals: Yes pets and animals: dog(s) history of recent travel: No sexually active: Yes Smoking Status: Former smoker alcohol intake: never substance use type: marijuana caffeine: No during the past year weight has: decreased > 10 lbs what type of physical activity do you participate in: walking frequency: daily duration: 15-30 minutes/day edna/samaritan: None seatbelt use: always do you feel safe at home: Yes additional social history: Kory [employer] Patient is unemployed History 7 Elective abortions Hx Para 2 Spontaneous abortions 4 Hx # Term Pregnancies Ectopic pregnancies Hx # Pregnancies Multiple births # of living children 2 Past Pregnancies Del. Date Name GA/Weeks Outcome Route Bth Weight Gen Labor Lgth Anesthesia Del Locatn Provider FOB Unknown 2016 Kory 41 live - full term Male 12 spinal Pomerene Vacceriello 10/10/20 Summer 39 live - full term Female [facility] Delivery Date: Last Updated by: Susan Snider heart rate Delivery Date: 10/10/20 Last Updated by: Sharon Dugan RLTCS severe preeclampsia Visit Details Expected Delivery Route/Plan desires repeat and BS with SM Plans Covid status: [] Flu vaccine: declined Tdap vaccine: given Rhogam: [na LARC form signed: delcined movement and labor precautions reviewed. Problem list reviewed and updated with the most current plan of care details and appropriate orders placed. Relevant counseling for the gestational age provided. Continue routine care and follow up unless otherwise noted in visit notes/problem list details OB Flowsheet Initial Weight: Not Recorded Date -?-?-?-?-?-?-?-?-?-?-?-?- EGA Weight BP Urine Prot -?-?-?-?-?-?-?-?-?-?-?-?- Glucose FHR FuHt Pres Dilation -?-?-?-?-?-?-?-?-?-?-?-?- Effaced St Visit Note 01/13/23 -?-?-?-?-?-?-?-?-?-?-?-?- 7w 6d 148 lb 120/86 -?-?-?-?-?-?-?-?-?-?-?-?- 160 -?-?-?-?-?-?-?-?--?-?-?-?- JV- CRL is off b y a week from LMP, pt has irregular periods. Desires NIPT. will return in one week for heart beat check up. will give box kit then 01/23/23 -?-?-?-?-?-?-?-?-?-?-?-?- 9w 2d 152 lb 2 oz 121/75 Nega tive -?-?-?-?-?-?-?-?-?-?-?-?- Negative 170 -?-?-?-?-?-?-?-?-?-?-?-?- SM- no vb crampi ng 02/05/23 -?-?-?-?-?-?-?-?-?-?-?-?- 11w 1d 158 lb 2 oz 130/74 Nega tive -?-?-?-?-?-?-?-?-?-?-?-?- Negative 160 -?-?-?-?-?-?-?-?-?-?-?-?- JV- no lof, vagi nal bleeding, or cramping. pictures are clearer today and GISELE is more consistent with LMP 03/05/23 -?-?-?-?-?-?-?-?-?-?-?-?- 15w 1d 162 lb 6 oz 132/83 Nega tive -?-?-?-?-?-?-?-?-?-?-?-?- Negative 160 -?-?-?-?-?-?-?-?-?-?-?-?- MH-NO VB. Feels well. Brief US to confirm FHT. 04/02/23 -?-?-?-?-?-?-?-?-?-?-?-?- 19w 1d 173 lb 2 oz 119/77 Nega tive -?-?-?-?-?-?-?-?-?-?-?-?- Negative 151 -?-?-?-?-?-?-?-?-?-?-?-?- JV- no lof, vagi nal bleeding, or cramping. anatomy scan on 04/1404/30/23 -?-?-?-?-?-?-?-?-?-?-?-?- 23w 1d 178 lb 131/77 Negative -?-?-?-?-?-?-?-?-?-?-?-?- Negative 146 -?-?-?-?-?-?-?-?-?-?-?-?- JV- pt to start twice weekly bpps at 28 weeks for apl. no lof, vaginal bleeding, or dec fm. 05/29/23 -?-?-?-?-?-?-?-?-?-?-?-?- 27w 2d 183 lb 144/86 136/82 Negative -?-?-?-?-?-?-?-?-?-?-?-?- Negative 145 30 -?-?-?-?-?-?-?-?-?-?-?-?- KW-no vb/lof/ctx . good fm. Desires R CS+BTO with SM. Recommended to schedule rest appts with her if possible. BPP orders placed for next 2 weeks. Discussed Tdap next visit and taking BPs at home. no LOVE/dizziness/BV. KW-no vb/lof/ctx. good fm. D esires R CS+BTO with SM. Recommended to schedule rest appts with her if possible. BPP orders placed for next 2 weeks. Discussed Tdap next visit and taking BPs at home. no LOVE/dizziness/BV. CMP/TSH/Free T4 ordered. 06/12/23 -?-?-?-?-?-?-?-?-?-?-?-?- 29w 2d 186 lb 4 oz 131/80 Nega tive -?-?-?-?-?-?-?-?-?-?-?-?- Negative 130 -?-?--?-?-?-?-?-?-?-?-?-?- KW- no vb/lof/ct x. good fm. RCS scheduled for 08/18 with SM. KW- no vb/lof/ctx. good fm. RCS scheduled for 08/18 with SM. at 32 weeks start 2x weekly NSTs. growth reviewed KW- no vb/lof/ctx. good fm. RCS scheduled for 08/18 with SM. at 32 weeks start 2x weekly BPPs- scheduled. growth reviewed title 19 done 06/16/23 -?-?-?-?-?-?-?-?-?-?-?-?- 29w 6d 188 lb 121/86 Negative -?-?-?-?-?-?-?-?-?-?-?-?- Negative 130 -?-?-?-?-?-?-?-?-?-?-?-?- SM- no vb lof go od fm no regular ctx 06/26/23 -?-?-?-?-?-?-?-?-?-?-?-?- 31w 2d 188 lb 112/80 112/80 Negative -?-?-?-?-?-?-?-?-?-?-?-?- Negative 135 31 -?-?-?-?-?-?-?-?-?-?-?-?- Sm- no vb lof go od fm no regular ctx 07/01/23 -?-?-?-?-?-?-?-?-?-?-?-?- 32w 0d 186 lb 127/77 Negative -?-?-?-?-?-?-?-?-?-?-?-?- Negative 130 32 -?-?-?-?-?-?-?-?-?-?-?-?- SM- no vb lof go od fm n oregula ctx bpps started 07/10/23 -?-?-?-?-?-?-?-?-?-?-?-?- 33w 2d 190 lb 111/75 Negative -?-?-?-?-?-?-?-?-?-?-?-?- Negative 135 33 -?-?-?-?-?-?-?-?-?-?-?-?- SM- no vb lof go od fm nor egular ctx 07/24/23 -?-?-?-?-?-?-?-?-?-?-?-?- 35w 2d 191 lb 124/81 -?-?-?-?-?-?-?-?-?-?-?-?- 140 35 -?-?-?-?-?-?-?-?-?-?-?-?- SM- no vb lof go od fm no regular ctx mood stable 07/28/23 -?-?-?-?-?-?-?-?-?-?-?-?- 35w 6d 193 lb 4 oz 127/82 Nega tive -?-?-?-?-?-?-?-?-?-?-?-?- Negative 150 -?-?-?-?-?-?-?-?-?-?-?-?- SM- no vb lof de creased movement, persistent since last week, okay today, NST FHR Rate Baby A Baseline: 130 ROS Constitutional Constitutional: Reports systems reviewed and no addt'l complaints, except as documented Eyes Eyes: Denies change in vision ENT HEENT: Reports systems reviewed and no addt'l complaints, except as documented; Denies headache(s) Cardiovascular Cardiovascular: Reports systems reviewed and no addt'l complaints, except as documented; Denies chest pain or dyspnea Respiratory/Chest Respiratory/Chest: Reports systems reviewed and no addt'l complaints, except as documented Gastrointestinal Gastrointestinal: Reports systems reviewed and no addt'l complaints, except as documented; Denies abdominal pain Genitourinary Genitourinary: Reports systems reviewed and no addt'l complaints, except as documented, contractions Details: present (irregular) and movement Details: present; Denies dysuria or genital lesions Musculoskeletal Musculoskeletal: Reports systems reviewed and no addt'l complaints, except as documented Neurologic Neurologic: Reports systems reviewed and no addt'l complaints, except as documented Endocrine Endocrinology: Reports systems reviewed and no addt'l complaints, except as documented Vital Signs Vital Signs Vital Signs: 08/05/23 05:33 08/05/23 05:33 08/05/23 05:52 Temperature 97.1 F L Temperature Source Temporal Pulse Rate 107 H 108 H Respiratory Rate 16 Blood Pressure 130/80 H 130/80 H Blood Pressure Mean 96 BP Systolic 130 BP Diastolic 80 Pulse Ox 97 Oxygen Delivery Method Room Air Weight Weight: 193 lb 6.4 oz Body Mass Index (BMI) 32.1 Physical Exam Const alert, oriented x3, no apparent distress and healthy appearing HEENT normocephalic and moist oral mucous membranes Head and Scalp: atraumatic Neck full ROM, no lymphadenopathy, supple and thyroid normal General: trachea midline Lymph Lymphatic: no lymphadenopathy noted Chest inspection of chest normal Resp normal respiratory effort Cardio regular rate GI normal to inspection, nondistended, normoactive bowel sounds, soft to palpation and non-tender Inspection: gravid external exam normal Manual OB Exam: estimated gestational size appropriate, presentation cephalic, dilated, effaced and station Extremity normal to inspection General Extremity: Negative for edema Skin no rashes or lesions noted Neuro no focal motor deficits and deep tendon reflexes 2+ bilaterally Motor Exam: strength 5/5 throughout and clonus absent Psych mental status grossly normal Labs Labs Labs: Blood Type A POSITIVE Antibody Screen NEGATIVE Hct 33.4 % (37-47) L Hgb 11.0 g/dL (12.0-15.0) L Obstetrics Ultrasound Syphilis Total Ab Non-reactive Rubella IgG Antibody Reactive (Nonreactive) Hep Bs Antigen Non-Reactive (Nonreactive) Hepatitis C Antibody Non-Reactive (Nonreactive) Chlamydia DNA (YANET) Negative (Negative) N.gonorrhoeae DNA (YANET) Negative (Negative) HIV 1&2 Antibody Non-Reactive (Nonreactive) Glucose 1 Hr 50 gm 149 mg/dL (70-140) H Gest Glucose Tolerance MG/DL Rhogam given: No Assessment & Plan (1) Decreased movements in third trimester: COMMENT: *persistent decreased movement, continue kick counts, maternal testing, and plan delivery at 37 weeks (2) Sterilization: COMMENT: title 19 signed. (3) Abnormal glucose affecting : COMMENT: Passed 3 hour (4) Antiphospholipid antibody positive: COMMENT: Currently on Lovenox and low dose ASA mfm now recommending twice weekly testing. has twice weekly BPPs scheduled. (5) Testing for genetic disease carrier status: COMMENT: Positive for polycystic kidney disease, autosomal recessive. carrier testing negative (6) History of severe pre-eclampsia: COMMENT: Pre-e labs ordered at B (7) Abnormal TSH: COMMENT: nl on repeat (8) History of genetic disorder: COMMENT: history trisomy 15 with previous miscarriage. (9) History of delivery: COMMENT: x2 plan RLTCS BS scheduled for 4/30 @ 7:15 with SM (10) Smoker: COMMENT: vaping encouraged cessation (11) Anxiety with depression: COMMENT: Currently taking Prozac (12) Marijuana use: COMMENT: Tox screen obtained at [facility] was positive. repeat screen at random in if appropriate (13) Supervision of high risk , antepartum: COMMENT: Yanira BETHEA, GISELE 08/26/23, Deshaun Horn, Summer Spouse Santiago (14) : QUALIFIERS: Weeks of gestation: 35 weeks Qualified Code(s): Z3A.35 - 35 weeks gestation of COMMENT: LR NIPT carrier screen drawn in past. PLAN: Plan proceed with RLTCS and BS.
--- NOTE | 2023-08-05 07:17 | EX.PCM.OBRPT ---
Assessment & Plan (1) Decreased movements in third trimester: COMMENT: *persistent decreased movement, continue kick counts, maternal testing, and plan delivery at 37 weeks (2) Sterilization: COMMENT: title 19 signed. (3) Antiphospholipid antibody positive: COMMENT: Currently on Lovenox and low dose ASA mfm now recommending twice weekly testing. has twice weekly BPPs scheduled. (4) Testing for genetic disease carrier status: COMMENT: Positive for polycystic kidney disease, autosomal recessive. carrier testing negative (5) History of severe pre-eclampsia: COMMENT: Pre-e labs ordered at [facility] (6) History of genetic disorder: COMMENT: history trisomy 15 with previous miscarriage. (7) History of delivery: COMMENT: x2 plan RLTCS BS scheduled for 08/04 @ 7:15 with SM (8) Supervision of high risk , antepartum: COMMENT: NEEMA, , GISELE 08/26/23, Deshaun Horn, Summer Spouse Santiago (9) : QUALIFIERS: Weeks of gestation: 35 weeks Qualified Code(s): Z3A.35 - 35 weeks gestation of COMMENT: LR NIPT carrier screen drawn in past. (10) Marijuana use: COMMENT: Tox screen obtained at [facility] was positive. repeat screen at random in if appropriate (11) Anxiety with depression: COMMENT: Currently taking Prozac (12) Smoker: COMMENT: vaping encouraged cessation Maternal Data Information GISELE Calculator Estimated Delivery Date Method Current WG Current Estimate 08/26/23 LMP (Certain) 37w 0d Other Estimates 09/01/23 Ultrasound #1 36w 1d 08/25/23 Ultrasound #2 37w 1d Final GISELE Source: LMP Details Operative Information Date of Procedure: 08/05/23 Pre-Operative Diagnosis: Previous persistent decreased movement apl syndrome Post-Operative Diagnosis: same Indications for : Repeat Elective (and bilateral salpingectomy) Indications Narrative: Surgeon: Afia Rosario MD Classification: Scheduled Procedure Type: low transverse ginning operator #1: Iqra Dunbar Type of Anesthesia: Spinal Special Medications: none Antibiotic Given: Ancef 2 grams IV x1 Drain: Mo to straight drain Estimated Blood Loss: 600 Fluids Replaced: crystalloid Procedure Start Time: 07:39 Procedure Stop Time: 08:16 Findings Description of Procedure: Spinal anesthesia was placed without difficulty. Mo catheter was placed. The patient was placed in the dorsal supine position with leftward tilt. Patient was prepped and draped in the normal sterile fashion. Pfannenstiel skin incision was made with the scalpel and carried through to the underlying layer of fascia with the scalpel. Fascia was nicked in the midline and the incision extended laterally. The rectus bellies were dissected off superiorly and inferiorly with out complication both sharply and bluntly. The peritoneum was entered digitally. The incision was stretched and a low transverse uterine incision was made with the scalpel. The infant's head was delivered atraumatically followed by the anterior and posterior shoulders without complication the rest of the infant delivered. The cord was clamped and cut and the was handed off to awaiting nurse. The placenta was delivered spontaneously immediately following and was noted to be intact and have a three-vessel cord. The uterus was exteriorized cleared of all clots and debris, and the incision was closed in a single layer closure using #1 Monocryl. The ovaries and fallopian tubes were noted to be within normal limits. Patient had desired sterilization and was counseled preoperatively regarding irreversibility and permanency. Therefore bilateral fallopian tubes were elevated and transected across using a LigaSure device starting proximally to distally without complication the entire fallopian tubes were removed. The uterus was returned to the maternal abdomen and gutters were cleared of all clots and debris. The peritoneum was closed with 3-0 Monocryl in a running fashion. Fascia was closed with 0 PDS in a running fashion. Subcutaneous tissue was copiously irrigated and the skin was closed with 3-0 Monocryl in a subcuticular fashion. Mepilex dressing was applied without complication. Patient was taken to recovery in stable condition. Amniotic Membrane Rupture Type: Artificial Amniotic Fluid Description: Clear Placenta Disposition: [facility] Cord Vessel Description: 3 Vessels Delayed Cord Clamping: Yes Complications Risks of Surgery Discussed w/Patient: Bleeding, Infection, Need for Future C-Sections and Injury to surrounding structure(s) including bowel and bladder Vaginal Delivery Complication Complications: None Admit VTE Documentation VTE Present on Admission: No VTE Mechan Device Prophylaxis: SCD's Multi Select Codes Urinary/Genital Urinary/Genital CPT Codes: 79432 C/S+TL [place] 42539 delivery+ Care([facility])
--- NOTE | 2023-08-05 07:21 | DCINST_ITS ---
Discharge Instructions Diet Discharge Diet: No restrictions Activity Discharge Activity: May Not Drive (for 2 weeks or while taking narcotic pain medications.), May Shower and May Take a Tub Bath (in 7 days) May shower in (days): 0 May resume sexual activity in: 4-6 weeks Weight Bearing Status: Full weight bearing Lifting Restrictions: 20 pounds Dressing / Incision Call your doctor if your incision/area has: Continuous Slow Oozing, Sudden Increased Bleeding, Increased Pain/ Swelling, Increased Redness and Foul Smelling Discharge Call your doctor if you observe: Fever of 101 or Higher and Using more than 1 pad per hour (for 2 hours) Suture Line Care: Avoid Pulling/Pushing and Avoid Pinching/Bending Cleanse incision/area with: Soap & Water and Keep Dressing Clean & Dry Follow Up Care Please Follow Up With: Afia Rosario MD When: Call [phone] to make an appointment for an incision check in 1-2 weeks. Test Results: Test results from this visit will be discussed in further detail at your follow- up appointment, if applicable. Discharge Plan Admission Admit Date/Time: 08/05/23 05:25 Attending Provider: Afia Rosario Primary Care Provider: Felisha Rucker Discharge Orders/Prescriptions Prescriptions: New oxycodone-acetaminophen [Percocet] 5-325 mg tablet 1 tab PO Q6H PRN (Reason: pain) 7 Days Qty: 20 0RF naproxen [naproxen] 500 mg tablet 500 mg PO BID PRN PRN (Reason: Pain) Qty: 30 1RF enoxaparin [Lovenox] 40 mg/0.4 mL syringe 40 mg SQ DAILY 40 Days Qty: 20 1RF Continued fluoxetine [Prozac] 40 mg capsule 10 mg PO DAILY No Action DHA 200 mg capsule PO aspirin 81 mg tablet,delayed release (DR/EC) 81 mg PO DAILY ondansetron HCl 4 mg tablet 4 mg PO Q8H Qty: 60 4RF Referrals / Follow Up: Felisha Rucker PA-C [Primary Care Provider] - Disposition Disposition (needs filled in before D/C Order can be placed): Home, Self Care
[2023-08-05] MEDS: Cefazolin 2 GM in 0.9% Normal Saline (100mL Bag) 100 ML IV (07:25)
--- NOTE | 2023-08-05 07:43 | FALS_PTH ---
PATIENT: LYUBOV NOEL LOC: [facility] U#:[id number] AGE/SX: 23/F ROOM: WP004 RE08/05/[address]: Dr. Afia Rosario MD : 2000 BED: 1 DIS: 08/06/2023 SPEC #: [id number] RECD: 08/05/23 09:39 STATUS: JENNIFER TEJADA #: [id number] DAVID: 08/05/23 07:[address]: Afia Rosario DEPT: SURGICAL PATHOLOGY RECD BY: Jennifer Roblero ENTERED: 08/05/23 10:54 SP TYPE: FALL TUBES OTHR DR: Felisha Rucker PA-C Tissues: Fallopian tube Procedures: Surgery Specimen Level II HEADER OPERATION: Tubal ligation PRE-OP DIAGNOSIS: Sterilization TISSUE SUBMITTED: Fallopian tubes MICROSCOPIC DIAGNOSIS Right fallopian tube, salpingectomy: Complete cross section of fallopian tube with no pathologic change. Left fallopian tube, salpingectomy: Complete segment of fallopian tube with no pathologic change. AM: 08/06/23 MICROSCOPIC DESCRIPTION Slides are reviewed. GROSS DESCRIPTION Received in fixative is one container labeled with the patient's name and designated bilateral fallopian tubes- right tube with suture. The specimen consists of two fallopian tubes with an average length of 6.0 cm and has an average diameter of 0.6 cm. Both fallopian tubes have normal fimbriated ends. No mass lesions are identified. Coding Specialist Home Health sections are submitted in two cassettes as follows: 1 - right fallopian tube, 2 - left fallopian tube. / AM: 08/05/23 TC:4 CPT: 89052 x2
[2023-08-05] MEDS: Lactated Ringers 1,000 ML 100 ML IV (08:38)
[2023-08-05] MEDS: Oxytocin 15 Units/NS 250ml 15 UNITS/250 ML IV.SOLN 83 UNITS IV (08:39)
[2023-08-05] MEDS: Ketorolac 30 MG/ML Syringe IV ×3 (09:00→20:56)
[2023-08-05 09:35] LABS: Syphilis Antibodies Non-reactive
[2023-08-05 09:36] LABS: Pathology Specimen OB SEE PATHOLOGY REPORT
[2023-08-05] MEDS: 0.9% Saline Lock 10 ML Syringe IV ×2 (15:13→20:56)
[2023-08-05] MEDS: Enoxaparin 40 MG/0.4 ML Syringe SC (19:36)
[2023-08-06] VITALS: BP 130/72; PULSE 69; RESP 16; TEMP 36.1; O2SAT 98
[2023-08-06] MEDS: Ketorolac 30 MG/ML Syringe IV (03:00)
[2023-08-06] MEDS: 0.9% Saline Lock 10 ML Syringe IV (03:01)
[2023-08-06 03:06] VITALS: BP 129/78; PULSE 68; RESP 16; TEMP 36.1; O2SAT 99
[2023-08-06] MEDS: Acetaminophen 500 MG Tablet 1000 MG PO ×2 (06:07→11:42)
[2023-08-06 06:13] LABS: Hematocrit 30.7 % (37-47); Hemoglobin 10.1 g/dL (12.0-15.0); Mean Corp Hgb Conc 32.9 g/dL (32-36); Mean Corpuscular Hgb 25.9 pg (27.0-32.0); Mean Corpuscular Volume 78.7 fL (81-99); Mean Platelet Vol. 9.2 fl (6.2-12.0); Platelet Count 193 K/mm3 (150-450); RBC Distribution Width CV 12.5 % (11.6-14.6); RBC Distribution Width SD 35.2 fl (35.1-43.9); White Blood Count 15.7 K/mm3 (4.4-11.0)
[2023-08-06 08:02] VITALS: BP 145/74; PULSE 86; RESP 18; TEMP 37; O2SAT 100
--- NOTE | 2023-08-06 08:15 | PCM.PN.OB ---
Subjective Subjective Patient doing well without complaints. Tolerating PO. Ambulating and voiding without difficulty. Feeding well. Denies chest pain, shortness of breath, calf pain/swelling, fevers, chills, lightheadedness. Objective Data Objective Data Vital Signs: Vital Signs Temp Pulse Resp BP Pulse Ox O2 Del Method 97.0 F L 68 16 129/78 H 99 Room Air 08/06/23 03:06 08/06/23 03:06 08/06/23 03:06 08/06/23 03:06 08/06/23 03:06 08/06/23 03:06 Oxygen Delivery Method Room Air Weight: 193 lb 6.4 oz Body Mass Index (BMI) 32.1 Intake & Output: Intake and Output for Last 24 Hours 08/04/23 08/05/23 08/06/23 23:59 23:59 23:59 Intake Total 2713.33 / 2713.33 Output Total 1000 / 1000 Balance 1713.33 / 1713.33 Lab / Micro Data 08/06/23 06:05 Labs: Laboratory Results - last 24 hr 08/05/23 05:30: Syphilis Total Ab Non-reactive 08/06/23 06:05: WBC 15.7 H, RBC 3.90 L, Hgb 10.1 L, Hct 30.7 L, MCV 78.7 L, MCH 25.9 L, MCHC 32.9, RDW Std Deviation 35.2, RDW Coeff of Drake 12.5, Plt Count 193, MPV 9.2 Physical Exam Const alert and oriented x3 HEENT normocephalic Eyes PERRL Neck full ROM Resp normal respiratory effort GI soft to palpation GI Narrative: FF below U. Dressing dry and intact Palpation: tender other (appropriately) Assessment & Plan (1) Status post bilateral salpingectomy: COMMENT: by at time of csection (2) delivery delivered: COMMENT: RLTCS boy coleson 37 dec fm apl syndrome (3) Antiphospholipid antibody positive: COMMENT: Currently on Lovenox and low dose ASA mf now recommending twice weekly testing. has twice weekly BPPs scheduled. (4) Anxiety with depression: COMMENT: Currently taking Prozac PLAN: Plan s/p PPD # 1 1. routine post delivery care 2. breast feeding- support given 3. rh positive 4. rubella immune 5.continue lovenox X 6 wk 6. discharge today
[2023-08-06] MEDS: oxyCODONE 5 MG Tablet PO ×2 (08:17→11:41)
[2023-08-06] MEDS: Naproxen 500 MG Tablet PO (08:17)
[2023-08-06] MEDS: Senna/Docusate Sodium 1 Tablet PO (08:18)
== END 2023-08-06 12:00 | disposition home or self-care (01) | DRG 539 ==
PROVIDERS: Admitting Provider Obstetrics & Gynecology; PCP Family Medicine; Referring Provider Obstetrics & Gynecology; Visit Provider Obstetrics & Gynecology
PROC: 0UT70ZZ Resection of Bilateral Fallopian Tubes, Open Approach (ICD-10-PCS; CPT 59514; principal; 2023-08-05 07:00)
DX: O34.211 Maternal care for low transverse scar from previous cesarean delivery (principal); D68.61 Antiphospholipid syndrome; F41.8 Other specified anxiety disorders; F12.90 Cannabis use, unspecified, uncomplicated; O99.324 Drug use complicating childbirth; O99.12 Other diseases of the blood and blood-forming organs and certain disorders involving the immune mechanism complicating childbirth; O99.344 Other mental disorders complicating childbirth; Z3A.37 37 weeks gestation of pregnancy; Z79.82 Long term (current) use of aspirin; Z37.0 Single live birth; Z79.01 Long term (current) use of anticoagulants; O36.8130 Decreased fetal movements, third trimester, not applicable or unspecified; Z30.2 Encounter for sterilization; Z87.891 Personal history of nicotine dependence; O26.23 Pregnancy care for patient with recurrent pregnancy loss, third trimester
CPT/HCPCS: 59025; 59050; 80307; 85025; 85027; 86780; 86850; 86900; 86901; 88302; 99221; J7120; A4216; G0378; J2405